=== PATIENT | female | born 1965 | race Caucasian/White ===

== ENCOUNTER → 2017-10-28 14:39 | Outpatient (CLI) | payer OTHER, SELFPAY ==
[2017-10-28 18:05] LABS: Anion Gap 10 (5-15); BUN 16 mg/dL (7-18); BUN/Creat Ratio 17.6 RATIO (10-20); Chloride 102 mmol/L (98-107); Creatinine, Serum 0.91 mg/dL (0.55-1.02); EST Glomerular Filtration Rate 69 mL/min (>60); Est Glom Filt Rate - Afr Amer 83 mL/min (>60); Glucose 87 mg/dL (74-106); Sodium Level 138 mmol/L (136-145)
== END ==
PROVIDERS: Family Provider Family Medicine; PCP Family Medicine; Visit Provider Family Medicine
DX: I10 Essential (primary) hypertension (principal)
CPT/HCPCS: 36415; 80048

== ENCOUNTER 2018-05-09 09:30 | Outpatient (RCR) | payer OTHER, SELFPAY ==
--- NOTE | 2018-04-28 14:58 | HP.PTEVAL_ITS ---
Patient's Visit Information RAZA GUAMAN is a 53 year old F referred to Physical Therapy by Michael Boyle with a diagnosis of Bone Spur and Plantar Fascitis. Date of Evaluation: 04/28/18 Physical Therapist: Shaila Valente - Visit Plan Frequency: 2x /Week Duration: 3 Weeks Plan: Dry Needling, Gastroc, Cupping - Subjective Subjective: Patient reports having left plantar fascitits and a bone spur. Has had pain for about 6 months- insisous onset. Has had x-rays on the left. Has plantar fascitis in the [facility] and has been treated for like 15 years. Just the left is an issue. Has had 2 cortisone injections- does stretching- and has night splints that she wears at her desk. Wear orthotics in her tennis shoes- not currently wearing them- her go to shoes are nike flip flops that have a cushion on the field. Does not change her orthotics out of her shoes- does not feel like enough cushion in the heel- approx 2-3 years old. Has not talked about making new ones. Feels like the left foot is getting worse over the past 10 days it has gotten remarkably worse. No changes in anything. Worst: 02/24 Agg: getting up out of bed in the AM, being on her feet all the time. Eases: ice and staying off of it. Best: 07/27. Pain is located in the center of the heel- No radiating pain- No N/T in the foot. Describes the pain as a little bit of everything- throbbing, sharp, shooting. 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 PMHx: HTN, Asthma Meds: lysinopril, sprinolactone, daily inhaler - Objective Posture: good throughout. Gait: antalgic- decreased stance on the left LE with poor heel/toe pattern. HR: able- TR: declined to attempt due to pain. SLS: Declined to attempt secondary to pain- pt barely able to stand putting the foot flat on a surface. ROM: WFL. Strength: 5/5 throughout. Flex: Gastroc: no restriction Soleus: no restriction. Palpation: tender along heel medial and lateral and center - Goals Goal 1:: Patient will be I with HEP Goal Time Frame: 4-6 Weeks Goal 2:: Patient will report 0/10 pain Goal Time Frame: 4-6 Weeks Goal 3:: Patient will SLS for 30 seconds on left LE Goal Time Frame: 4-6 Weeks - Rehabilitation Potential Physical Therapy Diagnosis: Patient presents with hypomobility- she has increased pain leading to diminished WB on the left LE - Anticipated Interventions Patient/Client Instruction: Educate patient on: Benefits of Fitness Program Manual Therapy Techniques to Include: Mobilization, Passive ROM, Functional dry needling, Soft tissue mobilization For the Purpose of:: To decrease swelling/inflammation, To improve nutrient delivery to tissue Thank you for the opportunity to evaluate your patient. For Medicare and Medicare HMO plans, please review the plan of care and approve it. It will need to be FAXED BACK to us at [phone] for Medicare purposes. Please let me know if there are questions or concerns regarding this plan of care. Physician Signature: Date:
--- NOTE | 2018-10-16 13:26 | HP.PT.NRP ---
HP - Discharge Summary (1) - Patient Information RAZA GUAMAN was seen in my office for initial evaluation on 04/28/18. The following Plan of Care was established for this patient: Initial Frequency: 2x /Week Initial Duration: 3 Weeks - Anticipated Interventions Patient/Client Instruction: Educate patient on: Benefits of Fitness Program Manual Therapy Techniques to Include: Mobilization, Passive ROM, Functional dry needling, Soft tissue mobilization For the Purpose of:: To decrease swelling/inflammation, To improve nutrient delivery to tissue This patient was last seen in our office . Pertinent comments regarding their Physical therapy will appear below: Patient has not attended physical therapy is over 30 days- appropriate to be d/c from PT and return to MD as needed for further evaluation. At this point I will be discontinuing this patient from physical therapy. I would be happy to see this patient again in the future if found appropriate by the physician. Thank you! CHANA BuchananT
== END 2018-05-09 19:00 | disposition home or self-care (01) ==
LOC: PT 09:30
PROVIDERS: Family Provider Family Medicine; PCP Family Medicine; Referring Provider Podiatrist; Visit Provider Podiatrist
DX: M72.2 Plantar fascial fibromatosis (principal); M77.32 Calcaneal spur, left foot
CPT/HCPCS: 97110; 97140; 97161

== ENCOUNTER → 2018-05-28 11:02 | Outpatient (CLI) | payer OTHER, SELFPAY ==
--- NOTE | 2018-05-28 11:21 | MRI_ITS ---
STUDY: MRI LEFT REARFOOT WITHOUT CONTRAST REASON FOR EXAM: Pain in center of heel for 8 months. TECHNIQUE: Standardized fat and water weighted pulse sequences were obtained in all 3 orthogonal planes. COMPARISON: None. FINDINGS: There is mild edema in the subcutis adipose space anterior to the distal tibial diaphysis. Normal posterior tibialis tendon. Normal flexor digitorum longus tendon. There is a small volume of fluid in the flexor hallucis longus tendon sheath distal to the sustentaculum kerry (T2 coronal images 21, 22). Normal peroneus longus and brevis tendons. Normal tibialis anterior tendon. Normal extensor hallucis longus tendon. Normal extensor digitorum longus tendons. Normal Achilles tendon and teno-osseous insertion. There is mild interstitial edema and periaponeurotic edema of the central and lateral cords of the plantar fascia (inversion recovery sagittal images 10-14). There is a plantar calcaneal enthesophyte with mild bone edema within the enthesophyte (inversion recovery sagittal images 10, 11). There is mild atrophy with mild partial fat replacement of the abductor digiti minimi muscle (T1 sagittal images 16-18). Normal distal tibiofibular syndesmotic ligamentous complex. Normal lateral ligamentous complex. Normal subtalar ligaments and sinus tarsi. Normal deltoid ligamentous complexes. Normal plantar calcaneonavicular (spring) ligament. Normal tibiotalar articulation. Normal talar dome. Normal subtalar articulations. Normal talonavicular articulation. Normal calcaneocuboid articulation. Normal navicular-cuneiform articulations. MRI/Lower Ext/No Jt/w/o IMPRESSION: Plantar fasciitis. Plantar calcaneal enthesophyte with mild bone edema. Mild atrophy of the abductor digiti minimi muscle. Small volume of fluid in the flexor hallucis longus tendon sheath. Electronically Signed: Severiano Baugh MD at 7:51 EST Tel , Service support ,
--- OUTSIDE RECORDS SUMMARY | 2018-07-14 13:55 | XMS RPT_ITS ---
:1965 Author Organization [facility] Care Team Providers Name Role Phone ESTRADA CASTILLO III A Referring Unavailable HERLINDA YANEZ (SKIN CARE THERAPIST) Attending Unavailable TIEN MENDIETA (PA) Referring Unavailable VELMA PEDRO Admitting Unavailable VELMA PEDRO Attending Unavailable CEBUL III, ESTRADA A Referring Unavailable CEBUL III, ESTRADA A Attending Unavailable CEBUL III, ESTRADA A Referring Unavailable CEBUL III, ESTRADA A Attending Unavailable CEBUL III, ESRTADA A Referring Unavailable Michael Boyle Attending Unavailable Michael Boyle Referring Unavailable Hieu Farris Primary Care Unavailable Hieu Farris Attending Unavailable Hieu Farris Primary Care Unavailable Palomo Sanford D.O. Attending Unavailable Michellebul Estrada RIBEIRO Referring Unavailable Cebul III, Estrada Primary Care Unavailable Hieu Farris Attending Unavailable Betsyl QUINTIN, Estrada Primary Care Unavailable Palomo Sanford D.O. 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 / Hospital M72.2(ICD-10) Repository 05/09/2018 Unknown M77.32 - Calcaneal Wunning, Active [place] spur, left foot / [facility] M77.32(ICD-10) Hospital Repository 07/22/2017 Active Encounter for WILLIS, Active [facility] screening for VELMA T [facility] malignant neoplasm Repository of colon / Z12.11(ICD-10) 08/07/2017 Active Unspecified injury NA Active [facility] of right lower [facility] leg, initial Repository encounter / S89.91XA(ICD-10) PROCEDURES PROCEDURES No Procedure Records FoundRESULTS RESULTS OPERATIVE REPORT Observed: 07/04/2018 Status: F Source: [place] 8:16 AM [facility] Medical Records Department [address] [place] [address] Operative Report 07/04/18 0813 MR#: [id number] Acct: [id number] Name: JACKIE GUAMAN Rep #: [id number] : 1965 53 From: Michael Boyle DPSandro PCP: Hieu Farris MD Status: REG [facility] [place] Location: [place] [address] Report of Operation Date of Procedure: 07/04/18 Pre-Operative Diagnosis: Plantar fascitis and infracalcaneal spur, left foot Post-Operative Diagnosis: Same Surgery/Procedure Performed:: Plantar fasciotomy with resection of infracalcaneal spur, left dairy scientist: yes - Dr. 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 She has elected to undergo surgical intervention - plantar fasciotomy with resection of infracalcaneal heel spur. This was discussed with her in detail, reviewed the possible benefits vs risks, goals, expectations, alternative options, and typical healing/post op recovery. The consent forms were reviewed with her, and she freely signed them. All of her questions were answered. No guarantees were given nor implied. Operative Procedure: The patient was brought back into the operating room and was placed on the operating room table in the supine position. She was carefully secured to the operating room table with a safety belt around the waist. A time out was performed and the patient was properly identified and the surgical plan was confirmed. The patient received 2g of IV Cefazolin for antibiotic prophylaxis. A well padded pneumatic tourniquet was applied around the patient's left ankle. The patient received MAC anesthesia per the anesthesia team, and a total of 20mL of 0.5% Bupivacaine plain was given as a regional nerve block around the heel surgical site. The left foot was scrubbed, prepped, draped in the usual aseptic fashion. The left foot was elevated for 3 minutes and the right ankle pneumatic tourniquet was inflated to 250mmHg. The infracalcaneal spur was visualized on intra operative fluoroscopy, image was saved. A skin incision was made to the medial hindfoot at the level of the plantar fascia and infracalcaneal spur, careful dissection was completed down through the subcutaneous tissue layer. A plane was created superiorly and inferiorly around the plantar fascia and the medial 50% of the plantar fascia was released via a plantar fasciotomy. It was noted there was significant thickening of the plantar fascia with fibrosis consistent with chronic plantar fasciitis. The infracalcaneal spur was felt, and was carefully resected using a powered rasp. Resection of the infracalcaneal spur was confirmed using intraoperative fluoroscopy. Images pre and post infracalcaneal spur resection were saved. The site was flushed out with copious amounts of normal saline solution. The skin was reapproximated using 3-0 Nylon. The pneumatic tourniquet was deflated (total tourniquet time was 21 minutes), and there was immediate return of warmth and perfusion to the foot and to all toes on the foot with normal temperature gradient and CFT < 2 seconds to all toes. Hemostasis was achieved. A dressing was applied which consisted of Betadine soaked adaptic, 4x4 gauze, Kerlix and ashok bandage, being sure to apply it not to tight. The patient tolerated the above operative procedure well at the anesthesia well with no complication. The patient was transported to the recovery room with vital signs stable and in good condition. Post operative orders were placed. Post operative instructions were reviewed and dispensed verbal and written. No weightbearing left foot, keep left foot elevated for at least 50 minutes of every hour, keep dressing clean, dry and intact. Prescription for [place] 1-2 tabs PO q 6 hours prn pain was prescribed. She is to follow up with me within 1 week or sooner if needed. Grafts/Implants Used: None - Complications None 07/04/1816 <Electronically signed by Michael Boyle DPM> Date Michael Boyle DPM CC: Hieu Farris MD; Michael Boyle DPM Signed DISCHARGE INSTRUCTION Observed: 07/04/2018 Status: F Source: [place] 8:11 AM [facility] [place] [place] [facility] Medical Records Department [address] [place] [address] Instructions for Home/Discharge Instructions 07/04/18 0810 MR#: [id number] Acct: [id number] Name: JACKIE GUAMAN Rep #: [id number] : 1965 53 From: Michael Boyle DPM PCP: Hieu Farris MD Status: REG [facility] Discharge Diet: Light diet - advance as tolerated Discharge Activity: May Not Drive Weight Bearing Status: No weight bearing - No weightbearing left foot Keep extremity elevated above heart level: Left Leg - Keep left foot elevated using pillows for at least 50 minutes of every hour Call your doctor if your incision/area has: Continuous Slow Oozing, Sudden Increased Bleeding, Increased Redness, Foul Smelling Discharge Call your doctor if you observe: Fever of 101 or Higher, Coldness, Increased Pain, Shortness of breath, Chest pain, Increased palpitations (irregular heartbeat), Calf discomfort, Uncontrolled pain Cleanse incision/area with: Do not get Incision Wet, Keep Dressing Clean AND Dry Allergies/Adverse Reactions: Allergies naproxen [From Aleve] Adverse Reaction (Intermediate, Verified 07/04/18 06:20) / sulfadiazine Adverse Reaction (Mild, Verified 07/04/18 06:20) / Medications to take at Discharge spironolactone 50 mg tablet 50 mg PO QAM 05/23/17 mometasone 100 mcg/actuation HFA aerosol inhaler 2 puff INHALATION Q12H #3 device 06/19/17 lisinopril 10 mg tablet 20 mg PO DAILY 03/18/18 Amberen 2 cap PO DAILY 06/27/18 Multivitamin [Daily Multiple Vitamin] 1 each PO DAILY 06/27/18 Hydrocodone/Acetaminophen [[place] 5-325 Tablet] 1 ea PO Q6H PRN PRN #30 tab 07/04/18 The following prescriptions were given: Hydrocodone/Acetaminophen [[place] 5-325 Tablet] 1 ea PO Q6H PRN PRN #30 tab PRN Reason: Pain Primary Care Physician: Alex Farris MD [Primary Care Provider] - Test Results: Test results from this visit will be discussed in further detail at your follow-up appointment, if applicable. Please Follow Up With: Michael Boyle DPM When: 1 week, sooner if needed 07/04/18 0811 <Electronically signed by Michael Boyle DPM> Date Michael Boyle DPM CC: Hieu Farris MD Signed FOOT 2 VIEWS Observed: 07/04/2018 Status: F Source: [place] 5:13 AM [facility] [facility] Imaging Services [address] [place] [address] Foot 2 Views MR#: [id number] Acct: [id number] Name: JACKIE GUAMAN Margarito Rep #: [id number] : 1965 F 53 From: Julianna Walton MD PCP: Hieu Farris MD Status: [facility] Study: Foot 2 Views Date of Exam: 07/04/18 Exam# [id number] Ordering Dr: Michael Boyle DPM STUDY: X-RAY - LEFT FOOT CLINICAL: Female, 53 years old. Left resection intracranial heel TECHNIQUE: 3 view(s) of the foot. COMPARISON: None. FINDINGS: 3 images were submitted, as radiology support for c-arm imaging in the operating room. This is not a diagnostic examination. Images for documentation purposes only. Fluoroscopy time if reported: RAD/Foot 2 Views IMPRESSION: Intraoperative fluoroscopic image guidance. Electronically Signed: Julianna Walton MD at 3:36 EST , Service support , CC: Hieu Farris MD; Michael Boyle DPM Hand Candy Cutter: Signed BASIC METABOLIC Collected: 06/23/2018 Status: F Source: [place] PROFILE (BMP) 11:53 AM [facility] [place] TYPE CODE TESTS RESULT OUT OF RANGE REFERENCE UNITS LAB L501.0100 74-106 mg/dL Normal GLU 95 Result Comment: Please note revised GLUCOSE reference range effective 2017. LAB L501.1000 7-18 mg/dL Normal BUN 15 LAB L501.1100 0.55-1.02 mg/dL Normal CREAT,SERUM 0.89 Result Comment: The validity of the calculated GFR AND GFRAA in patients over 70 years has not been determined. Clinical correlation is essential. LAB L501.1110 >60 mL/min Normal EST GFR 70 Result Comment: Non- GFR Calc LAB L501.1115 >60 mL/min Normal EST GFR - AA 85 Result Comment: GFR Calc LAB L501.1300 10-20 RATIO Normal BUN/CRE 16.8 LAB L501.2200 8.5-10.1 mg/dL CA Normal 9.7 LAB L501.5300 136-145 mmol/L NA Normal 138 LAB L501.5600 3.5-5.1 mmol/L K Normal 4.3 LAB L501.5900 98-107 mmol/L CL Normal 103 LAB L501.6100 21.0-32.0 mmol/L Normal CO2 26.0 LAB L501.6200 5-15 Normal GAP 9 Performed By: #### L500.2500, L100.0500 #### [facility] [address] [place], [address] CBC-COMPLETE BLOOD CNT Collected: 06/23/2018 Status: F Source: [place] NO DIFF 11:53 AM [facility] [place] [place] TYPE CODE TESTS RESULT OUT OF RANGE REFERENCE UNITS LAB L100.1000 4.4-11.0 K/mm3 Normal WBC 6.8 LAB L100.1200 4.2-5.4 M/mm3 Normal RBC 4.36 LAB L100.1300 12.0-15.0 g/dl Normal HGB 14.6 LAB L100.1400 37-47 % Normal HCT 43.2 LAB L100.1500 81-99 fL High MCV 99.1 LAB L100.1600 27.0-32.0 pg High MCH 33.5 LAB L100.1700 32-36 g/gl Normal MCHC 33.8 LAB L100.1810 11.6-14.6 % Normal RDW CV 12.3 LAB L100.1820 35.1-43.9 fl High RDW SD 44.0 LAB L100.1900 150-450 K/mm3 Normal PLT 328 LAB L100.2000 6.2-12.0 fl Normal MPV 10.0 Performed By: #### L500.2500, L100.0500 #### [facility] [address] [place], [address] LOWER EXT/NO JT/W/O Observed: 05/28/2018 Status: F Source: [place] 11:22 AM [facility] [place] [facility] Imaging Services [address] [place] [address] Lower Ext/No Jt/w/o MR#: [id number] Acct: [id number] Name: JACKIE GUAMAN Rep #: [id number] : 1965 F 53 From: Severiano Baugh MD PCP: Hieu Farris MD Status: REG CLI Study: Lower Ext/No Jt/w/o Date of Exam: 05/28/18 Exam# [id number] Ordering Dr: Michael Boyle DPSandro STUDY: MRI LEFT REARFOOT WITHOUT CONTRAST REASON FOR EXAM: Pain in center of heel for 8 months. TECHNIQUE: Standardized fat and water weighted pulse sequences were obtained in all 3 orthogonal planes. COMPARISON: None. FINDINGS: There is mild edema in the subcutis adipose space anterior to the distal tibial diaphysis. Normal posterior tibialis tendon. Normal flexor digitorum longus tendon. There is a small volume of fluid in the flexor hallucis longus tendon sheath distal to the sustentaculum kerry (T2 coronal images 21, 22). Normal peroneus longus and brevis tendons. Normal tibialis anterior tendon. Normal extensor hallucis longus tendon. Normal extensor digitorum longus tendons. Normal Achilles tendon and teno-osseous insertion. There is mild interstitial edema and periaponeurotic edema of the central and lateral cords of the plantar fascia (inversion recovery sagittal images 10-14). There is a plantar calcaneal enthesophyte with mild bone edema within the enthesophyte (inversion recovery sagittal images 10, 11). There is mild atrophy with mild partial fat replacement of the abductor digiti minimi muscle (T1 sagittal images 16-18). Normal distal tibiofibular syndesmotic ligamentous complex. Normal lateral ligamentous complex. Normal subtalar ligaments and sinus tarsi. Normal deltoid ligamentous complexes. Normal plantar calcaneonavicular (spring) ligament. Normal tibiotalar articulation. Normal talar dome. Normal subtalar articulations. Normal talonavicular articulation. Normal calcaneocuboid articulation. Normal navicular-cuneiform articulations. MRI/Lower Ext/No Jt/w/o IMPRESSION: Plantar fasciitis. Plantar calcaneal enthesophyte with mild bone edema. Mild atrophy of the abductor digiti minimi muscle. Small volume of fluid in the flexor hallucis longus tendon sheath. Electronically Signed: Severiano Baugh MD at 7:51 EST Tel , Service support , CC: Hieu Farris MD; Michael Boyle DPM Hand Candy Cutter: Signed INITAL EVALUATION (1) Observed: 04/28/2018 Status: F Source: [place] - PT 2:58 PM [facility] Physical Therapy [facility] [address] [place] [address] Fax REHABILITATION SERVICES INITIAL EVALUATION MR#: [id number] Acct: [id number] Name: JACKIE GUAMAN Rep #: [id number] : 1965 53 From: Shaila Valente DPT Referring Dr.: Michael Boyle DPM Status: REG RCR Insurance: [employer] SELF PAY INSURANCE Patient's Visit Information JACKIE GUAMAN is a 53 year old F referred to Physical Therapy by Michael Boyle with a diagnosis of Bone Spur and Plantar Fascitis. Date of Evaluation: 04/28/18 Physical Therapist: Shaila Valente - Visit Plan Frequency: 2x /Week Duration: 3 Weeks Plan: Dry Needling, Gastroc, Cupping - Subjective Subjective: Patient reports having left plantar fascitits and a bone spur. Has had pain for about 6 months- insisous onset. Has had x-rays on the left. [facility] and has been [facility] for like 15 years. Just the left is an issue. Has had 2 cortisone injections- does stretching- and has night splints that she wears at her desk. Wear orthotics in her tennis shoes- not currently wearing them- her go to shoes are nike flip flops that have a cushion on the field. Does not change her orthotics out of her shoes- does not feel like enough cushion in the heel- approx 2-3 years old. Has not talked about making new ones. Feels like the left foot is getting worse over the past 10 days it has gotten remarkably worse. No changes in anything. Worst: 02/24 Agg: getting up out of bed in the AM, being on her feet all the time. Eases: ice and staying off of it. Best: 07/27. Pain is located in the center of the heel- No radiating pain- No N/T in the foot. Describes the pain as a little bit of everything- throbbing, sharp, shooting. 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 PMHx: HTN, Asthma Meds: lysinopril, sprinolactone, daily inhaler - Objective Posture: good throughout. Gait: antalgic- decreased stance on the left LE with poor heel/toe pattern. HR: able- TR: declined to attempt due to pain. SLS: Declined to attempt secondary to pain- pt barely able to stand putting the foot flat on a surface. ROM: WFL. Strength: 5/5 throughout. Flex: Gastroc: no restriction Soleus: no restriction. Palpation: tender along heel medial and lateral and center - Goals Goal 1:: Patient will be I with HEP Goal Time Frame: 4-6 Weeks Goal 2:: Patient will report 0/10 pain Goal Time Frame: 4-6 Weeks Goal 3:: Patient will SLS for 30 seconds on left LE Goal Time Frame: 4-6 Weeks - Rehabilitation Potential Physical Therapy Diagnosis: Patient presents with hypomobility- she has increased pain leading to diminished WB on the left LE - Anticipated Interventions Patient/Client Instruction: Educate patient on: Benefits of Fitness Program Manual Therapy Techniques to Include: Mobilization, Passive ROM, Functional dry needling, Soft tissue mobilization For the Purpose of:: To decrease swelling/inflammation, To improve nutrient delivery to tissue Thank you for the opportunity to evaluate your patient. For Medicare and Medicare HMO plans, please review the plan of care and approve it. It will need to be FAXED BACK to us at [phone] for Medicare purposes. Please let me know if there are questions or concerns regarding this plan of care. Physician Signature: Date: <Electronically signed by Shaila Valente DPT> 04/28/18 0149 CC: Hieu Farris MD; Michael Boyle DPM ELR Signed For Medicare only, by signing this I certify the plan of care. Physicians Signature Date PULMONARY VISIT REPORT Observed: 03/18/2018 Status: F Source: [place] 10:21 AM [facility] [place] [facility] [place] [facility] [address] [place] [address] OFFICE VISIT Date of Service: 03/18/18 MR#: [id number] Acct: [id number] Name: JACKIE GUAMAN Rep #: [id number] : 1965 Provider: Palomo Sanford D.O. Age/Sex: 53/F [facility] Status: Signed Assessment AND Plan 1. ERNESTINA (obstructive sleep apnea) G47.33 Plan The patient has been compliant with use of her nocturnal BiPAP at a pressure support of 11/7 centimeters of water. She is benefiting clinically from its use. This will be continued without change. 2. Asthma J45.909 Plan The patient has mild, intermittent asthma and is symptomatically well controlled with the use of Asmanex and as needed albuterol. This regimen will be continued without change. The patient has been advised to call this office with any worsening in her breathing quality and/or increased reliance on her short acting beta agonist. Plan Detail Other Medications New: Follow Up 1 Year (DMB) HPI HPI Comments Details: The patient is a 53-year-old female who presents to the clinic today for a routine scheduled follow-up office visit. If you recall, the patient initially presented to me for evaluation of a chronic cough and presumptive asthma. She underwent pulmonary function testing in April 2017 the results of which were within normal limits. There was no significant bronchodilator response noted. The patient has been maintained on Asmanex therapy with good control of symptoms noted. Methacholine challenge was previously discussed with the patient. However, she declined to undergo testing. The patient did undergo a diagnostic polysomnogram in June 2017 which revealed mild to moderate obstructive sleep apnea. She then underwent a titration study, for which was recommended that she be placed on BiPAP therapy with a pressure setting of 11/7 cm of water with humidification. The patient's nocturnal compliance report was personally reviewed at today's office visit. Over the last 30 days, she has demonstrated an overall compliance rate of 100%. She is currently utilizing her BiPAP on average 7.5 hours per night. She has a prescribed pressure support of 11/7 centimeters of water. She has a residual AHI noted to be 0.8. No significant air leaks were noted. The patient reports improvement in her sleep quality since being started on BiPAP. She does endorse the presence of restorative sleep upon awakening and denies significant daytime hypersomnolence. She is not napping. She reports no significant air leaks. Her asthma is mild and intermittent and has been well controlled with use of Asmanex and as needed albuterol. In fact, she reports exceedingly infrequent use of her rescue inhaler. She has not been evaluated in the emergency department or urgent care clinic for breathing related issues. She denies the presence of chest tightness or wheezing. She reports no significant dyspnea. Her weight has been stable. 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 Accompanied by: Self Is patient in pain?: No Allergies naproxen [From Aleve] Adverse Reaction (Intermediate, Verified 03/18/18 06:35) / sulfadiazine Adverse Reaction (Mild, Verified 03/18/18 06:35) / Medications paroxetine 10 mg tablet 10 mg PO QAM 05/23/17 [History Confirmed 03/18/18] spironolactone 50 mg tablet 50 mg PO QAM 05/23/17 [History Confirmed 03/18/18] mometasone 100 mcg/actuation HFA aerosol inhaler 2 puff INHALATION Q12H #3 device 06/19/17 [Rx Confirmed 03/18/18] lisinopril 10 mg tablet 10 mg PO DAILY 03/18/18 [History Confirmed 03/18/18] PENDING SALE TO [facility] Medical History H/O: hysterectomy (Resolved) Sleep apnea (Chronic) Sneezing (Acute) Sore throat (Acute) Rhinorrhea (Chronic) Post-nasal drainage (Chronic) Nasal congestion (Acute) Hoarseness (Acute) Headache (Chronic) Asthma (Chronic) Cough (Chronic) Seasonal allergies (Chronic) Surgical History History of tonsillectomy (Resolved) Social History Smoking Status: Never smoker second hand exposure: No alcohol intake: current alcohol intake frequency: a few times a week Alcohol type: beer substance use type: does not use Review of Systems Const CONSTITUTIONAL: Negative anorexia, body ache, chills, daytime sleepiness, fever(s), night sweats, oral thrush, stops breathing during sleep, weight loss, sleeping in chair, fatigue, weight loss, weight gain, frequent colds, seasonal allergies, other, headache(s) or orthopnea EETM Ear Nose Throat Mouth: Positive hearing normal; negative hard of hearing, hoarseness, dry mouth in morning, change in vision, itchy eyes, eye pain, swallowing Difficulty, ear pain, nose bleed, headache(s), mouth pain, nasal congestion, nasal discharge, post nasal drip, sinus pain, sinus pressure, sore throat or other Cardio Cardiovascular: Negative chest pain, chest pain at rest, chest pain with activity, irregular heart rhythm, edema, shortness of breath when lying down, palpitations, murmur or other Resp Respiratory: Positive as per HPI, cough cough: Positive non- productive and inhalers; negative shortness of breath, pain with cough, wheezing, chest congestion, chest tightness, pain on inspiration, increase use of rescue inhalers, snoring, apnea or other Gastro Gastrointestional: Negative bloody stools, change in appetite, difficulty swallowing, reflux, hematemesis, melena stool, loose stool, constipation or other Genitourinary: Negative blood in urine, nocturia, pain with urination or other Musc Musculoskeletal: Negative body pain, back pain, neck pain or other Skin/Breast Skin/Breast: Negative dry skin, itching, rash, unusual bruising, breast lump or other Neuro Neurological: Negative restless legs, confusion, weakness or other Psych Psychocological: Negative abnormal sleep pattern, anxiety, thoughts of hurting self/others, hopelessness or other Lymph Lymphatic: Negative easy bleeding, easy bruising, swollen lymph nodes or other Exam Const Constitutional: Positive conversant, cooperative, in no acute respiratory distress, well developed, well nourished and good hygiene Head Head: Positive normocephalic and atraumatic; negative cyanosis of lips/distal nose Eyes Eye: Positive clear conjunctiva; negative nystagmus or scleral abnormality Ears Ear: Positive hearing normal; negative hard of hearing Nose Nose: Positive external nose normal; negative epistaxis Mouth Mouth: Positive oral mucosae normal and no lesions; negative post nasal drip or oral thrush present Mallampati Score: II: Mallampati Score Neck Neck: Positive normal visual inspection and trachea midline; negative lymphadenopathy Chest Wall Chest: Positive symmetric chest movement Normal AP diameter. Resp lung sounds: Positive clear to auscultation, good air exchange and normal expiratory time; negative wheezes, rhonchi or rales Cardio Cardiac: Positive regular rate, regular rhythm, S1 normal and S2 normal; negative murmur GI GI: Positive normal bowel sounds Soft without distention Genitourinary: Positive deferred Musc Musculoskeletal: Positive steady gait Skin Pulmonary Skin Exam: Positive intact; negative rash or lesion Pulses Pulse: Yes Pedal pulses present: Extremities Extremities: No clubbing, No cyanosis, No edema Neuro Neurologic: Yes conversant, Yes no focal neuro deficits, Yes cooperative Lymph Lymphatic: No lymphadenopathy Psych Appearance: Positive grossly normal Mental Status: Positive mental status grossly normal Mood: Positive congruent mood Affect: Positive normal affect Coding Level of Care Code Off vis,est,level 3 Diagnoses ERNESTINA (obstructive sleep apnea) G47.33 Asthma J45.909 03/18/18 1021 <Electronically signed by Palomo Sanford DO> Date Palomo Sanford DO Cosigner Signature: Date (if applicable) CC: Hieu Farris MD BASIC METABOLIC Collected: 10/28/2017 Status: F Source: [place] PROFILE (BMP) 2:41 PM [facility] Order Comment: Order Date: 10/16/17 Order Info: 0667-1 - BMP TYPE CODE TESTS RESULT OUT OF RANGE REFERENCE UNITS LAB L501.0100 74-106 mg/dL Normal GLU 87 Result Comment: Please note revised GLUCOSE reference range effective 2017. LAB L501.1000 7-18 mg/dL Normal BUN 16 LAB L501.1100 0.55-1.02 mg/dL Normal CREAT,SERUM 0.91 Result Comment: The validity of the calculated GFR AND GFRAA in patients over 70 years has not been determined. Clinical correlation is essential. LAB L501.1110 >60 mL/min Normal EST GFR 69 Result Comment: Non- GFR Calc LAB L501.1115 >60 mL/min Normal EST GFR - AA 83 Result Comment: GFR Calc LAB L501.1300 10-20 RATIO Normal BUN/CRE 17.6 LAB L501.2200 8.5-10.1 mg/dL CA Normal 10.0 LAB L501.5300 136-145 mmol/L NA Normal 138 LAB L501.5600 3.5-5.1 mmol/L K Normal 4.0 LAB L501.5900 98-107 mmol/L CL Normal 102 LAB L501.6100 21.0-32.0 mmol/L Normal CO2 26.0 LAB L501.6200 5-15 Normal GAP 10 Performed By: #### L500.2500 #### [facility] [address] [place] [address]. [place], [place], [address] PROGRESS Observed: 09/16/2017 Status: COMPLETED Source: [place] 1:19 PM [facility] REPOSITORY HNO ID: [id number] Author: Raya Bloom LPN Service: (none) Author Type: (none) Type: Progress Notes Filed: 09/16/2017 1:24 PM Note Text: Manual Readin/84 Pulse: 74 Reason for blood pressure check - Last BP elevated and Medication adjustment Patient is: Taking medication as prescribed Yes Took medication today Yes If no, date medication last taken N/A Experiencing side effects No BP was elevated at last appt 08/26/17. Amlodipine was increased to 10mg daily. Tolerating medication change well. Denies any chest pain, shortness of breath, dizziness, or headaches. Daily caffeine use. Past personal history of tobacco use; no current exposure. Alert and oriented. Pt has been identified by name and birthdate: Yes Allergies reviewed: Yes Latex allergy: no. Medication - prescribed and OTC reviewed and updated: Yes Do you need any prescription refills prior to your next visit: No Health Maintenance: Reviewed and not up to date and provider notified Patient advised to continue with current medications and would be contacted with any further instructions after review by PCP. Raya Bloom LPN CNNURSE Observed: 09/16/2017 Status: COMPLETED Source: [place] 1:00 PM [facility] REPOSITORY Nurse Visit (FAMPWS) JACKIE GUAMAN ([id number]) 1965 F Date Time Provider Department 09/16/17 1:00 PM [place] [facility] your visit today, we recorded the following information about you: Pulse Blood pressure 74/minute 126/84 Raya Bloom LPN 09/16/2017 1:24 PM Signed Manual Readin/84 Pulse: 74 Reason for blood pressure check - Last BP elevated and Medication adjustment Patient is: Taking medication as prescribed Yes Took medication today Yes If no, date medication last taken N/A Experiencing side effects No BP was elevated at last appt 08/26/17. Amlodipine was increased to 10mg daily. Tolerating medication change well. Denies any chest pain, shortness of breath, dizziness, or headaches. Daily caffeine use. Past personal history of tobacco use; no current exposure. Alert and oriented. Pt has been identified by name and birthdate: Yes Allergies reviewed: Yes Latex allergy: no. Medication - prescribed and OTC reviewed and updated: Yes Do you need any prescription refills prior to your next visit: No Health Maintenance: Reviewed and not up to date and provider notified Patient advised to continue with current medications and would be contacted with any further instructions after review by PCP. Raya Bloom LPN Referring Provider: ESTRADA CASTILLO III [[id number]] Allergies As of Date: 09/16/2017 Noted Allergy Reaction ALEVE (NAPROXEN SODIUM) 08/27/2008 4 - Hives Comments: passed out SULFA (SULFONAMIDE ANTIBIOTICS) 05/28/2005 Date Reviewed: 08/26/2017 Reviewed by: Audrey ([facility]) AUDRA Arceo - Fully Assessed Reason for Visit: Blood Pressure Check [195] Primary Visit Diagnosis:Benign hypertension [I10] Prescriptions as of 09/16/2017 Sig: AMLODIPINE 10 MG TABLET Take 1 tablet by mouth once d* SPIRONOLACTONE 50 MG TABLET Take 1 tablet by mouth once d* ASMANEX HFA INHALATION Inhale 1 Inhalation as instru* GABAPENTIN 300 MG CAPSULE Take 1 capsule by mouth daily* PAROXETINE 10 MG TABLET Take 1 tablet by mouth once d* ADAPALENE 0.1 % TOPICAL GEL Apply to entire affected area* Problem List As Of Date 09/16/2017 Noted Resolved Leiomyoma of uterus, unspecified [D25.9] INVALID FOR*08/26/2017 Sprain of neck [S13.9XXA] INVALID FOR*08/26/2017 Other Acne [L70.8] INVALID FOR*02/17/2010 Other Seborrheic Keratosis [L82.1] INVALID FOR*02/17/2010 PLANTAR FIBROMATOSIS [M72.2] INVALID FOR* Pain in limb [M79.609] INVALID FOR*08/26/2017 Acne: Inflammatory Grade III to IV (papulonodu*INVALID FOR* Viral Wart, Unspecified [B07.9] INVALID FOR*02/17/2010 Uterine prolapse without mention of vaginal wal*INVALID FOR*08/26/2017 Hypertrophy of uterus [N85.2] INVALID FOR*08/26/2017 Postinflammatory skin changes [R23.4] INVALID FOR*08/26/2017 Obesity, Class III, BMI 40-49.9 (morbid obesity*INVALID FOR* ERNESTINA (obstructive sleep apnea) [G47.33] INVALID FOR* Benign hypertension [I10] INVALID FOR* Hyperlipidemia LDL goal <130 [E78.5] INVALID FOR* Encounter for screening for malignant neoplasm *INVALID FOR* More... Mild intermittent asthma, uncomplicated [J45.20]INVALID FOR* Encounter Status:Closed by RAYA BLOOM LPN on 09/16/17 PROGRESS Observed: 08/26/2017 Status: COMPLETED Source: [place] 1:59 PM [facility] REPOSITORY O ID: [id number] Author: Estrada A Cebul III Service: (none) Author Type: Physician Type: Progress Notes Filed: 08/26/2017 2:45 PM Note Text: SUBJECTIVE: This is a 52 year old female that is here today for 1. 6 wk follow up of BP. 2. has not made dietary changes or found time to exercise. 3. asthma, 2-3 /yr. : doing well on asmanex 1 puff daily. No recent need for albuterol inhaler. PAST MEDICAL HISTORY Diagnosis Date - Asthma - Benign hypertension 07/02/2017 - Chronic pain of both knees 07/02/2017 - Excessive or frequent menstruation s/p ablation - Obesity, Class III, BMI 40-49.9 (morbid obesity) (HCC) 07/02/2017 - ERNESTINA (obstructive sleep apnea) 07/02/2017 - Other acne on face creme and med Current Outpatient Prescriptions on File Prior to Visit: spironolactone (ALDACTONE) 50 mg tablet Take 1 tablet by mouth once daily. amLODIPine (NORVASC) 5 mg tablet Take 1 tablet by mouth once daily. MOMETASONE FUROATE (ASMANEX HFA INHALATION) Inhale 1 Inhalation as instructed once daily. gabapentin (NEURONTIN) 300 mg capsule Take 1 capsule by mouth daily at bedtime. PARoxetine (PAXIL) 10 mg tablet Take 1 tablet by mouth once daily. adapalene (DIFFERIN) 0.1 % gel Apply to entire affected areas of acne daily up to twice daily (if needed) as directed and tolerated. No current facility-administered medications on file prior to visit. FAMILY HISTORY Problem Relation Age of Onset - None Mother - Prostate Cancer Father - Diabetes Maternal Grandfather Social History Substance Use Topics - Smoking status: Former Smoker Packs/day: 1.00 Years: 5.00 Types: Cigarettes - Smokeless tobacco: Never Used Comment: 18 years ago, quit 1984 - Alcohol use 78.0 oz/week Comment: daily- wine or beer/ average 12 drinks a week BP 142/83 Pulse 83 Resp 16 Wt 112.5 kg (248 lb) LMP 03/26/2012 BMI 42.57 kg/m2 . OBJECTIVE: APPEARANCE Well appearing, alert, in no acute distress, well-hydrated, well nourished., Morbidly obese no facial acne noted ASSESSMENT: hypertension--not at goal obesity--not improving but stable asthma--well controlled acne--well controlled on aldactone PLAN: healthy weight losing diet and regular exercise eat less sugar, bread, potato, pasta, rice, corn, corn syrup, saturated fats replace a starch or meat with a salad 1-2 times/day. increase amlodipine 10mg daily and nurse bp check in 2 wks same other medications consider adding lisinopril with careful 3 mo follow up of potassium if amlodipine is not effective reviewed note from Dr Palomo Sanford, pulmonary Estrada Castillo III MD CNOV Observed: 08/26/2017 Status: COMPLETED Source: [place] 1:40 PM [facility] REPOSITORY Office Visit (FAMPWS) JAKCIE GUAMAN ([id number]) 1965 F Date Time Provider Department 08/26/17 1:40 PM ESTRADA CASTILLO III FAMPWS During your visit today, we recorded the following information about you: Pulse Respiration Blood pressure Weight 83/minute 16/minute 142/83 112.5 kg Estrada Castillo III MD 08/26/2017 2:45 PM Signed SUBJECTIVE: This is a 52 year old female that is here today for 1. 6 wk follow up of BP. 2. has not made dietary changes or found time to exercise. 3. asthma, 2-3 /yr. : doing well on asmanex 1 puff daily. No recent need for albuterol inhaler. PAST MEDICAL HISTORY Diagnosis Date - Asthma - Benign hypertension 07/02/2017 - Chronic pain of both knees 07/02/2017 - Excessive or frequent menstruation s/p ablation - Obesity, Class III, BMI 40-49.9 (morbid obesity) ([facility]) 07/02/2017 - ERNESTINA (obstructive sleep apnea) 07/02/2017 - Other acne on face creme and med Current Outpatient Prescriptions on File Prior to Visit: spironolactone (ALDACTONE) 50 mg tablet Take 1 tablet by mouth once daily. amLODIPine (NORVASC) 5 mg tablet Take 1 tablet by mouth once daily. MOMETASONE FUROATE (ASMANEX HFA INHALATION) Inhale 1 Inhalation as instructed once daily. gabapentin (NEURONTIN) 300 mg capsule Take 1 capsule by mouth daily at bedtime. PARoxetine (PAXIL) 10 mg tablet Take 1 tablet by mouth once daily. adapalene (DIFFERIN) 0.1 % gel Apply to entire affected areas of acne daily up to twice daily (if needed) as directed and tolerated. No current facility-administered medications on file prior to visit. FAMILY HISTORY Problem Relation Age of Onset - None Mother - Prostate Cancer Father - Diabetes Maternal Grandfather Social History Substance Use Topics - Smoking status: Former Smoker Packs/day: 1.00 Years: 5.00 Types: Cigarettes - Smokeless tobacco: Never Used Comment: 18 years ago, quit 1984 - Alcohol use 78.0 oz/week Comment: daily- wine or beer/ average 12 drinks a week BP 142/83 Pulse 83 Resp 16 Wt 112.5 kg (248 lb) LMP 03/26/2012 BMI 42.57 kg/m2 . OBJECTIVE: APPEARANCE Well appearing, alert, in no acute distress, well- hydrated, well nourished., Morbidly obese no facial acne noted ASSESSMENT: hypertension--not at goal obesity--not improving but stable asthma--well controlled acne--well controlled on aldactone PLAN: healthy weight losing diet and regular exercise eat less sugar, bread, potato, pasta, rice, corn, corn syrup, saturated fats replace a starch or meat with a salad 1-2 times/day. increase amlodipine 10mg daily and nurse bp check in 2 wks same other medications consider adding lisinopril with careful 3 mo follow up of potassium if amlodipine is not effective reviewed note from Dr Palomo Sanford, pulmonary QUINTIN Borden MD, III MD 08/26/2017 2:18 PM Signed PLAN: healthy weight losing diet and regular exercise eat less sugar, bread, potato, pasta, rice, corn, corn syrup, saturated fats replace a starch or meat with a salad 1-2 times/day. increase amlodipine 10mg daily and nurse bp check in 2 wks same other medications consider adding lisinopril with careful 3 mo follow up of potassium if amlodipine is not effective Estrada Castillo III MD Referring Provider: ESTRADA CASTILLO III [[id number]] Allergies As of Date: 08/26/2017 Noted Allergy Reaction ALEVE (NAPROXEN SODIUM) 08/27/2008 4 - Hives Comments: passed out SULFA (SULFONAMIDE ANTIBIOTICS) 05/28/2005 Date Reviewed: 08/26/2017 Reviewed by: Audrey ([facility]) AUDRA Arceo - Fully Assessed Reason for Visit: 6 week follow up [Other] Primary Visit Diagnosis:Hyperlipidemia LDL goal <130 [E78.5] Other Visit Diagnoses:Benign hypertension [I10] Mild intermittent asthma, uncomplicated [J45.20] ERNESTINA (obstructive sleep apnea) [G47.33] Order(s):amLODIPine (NORVASC) 10 mg tabletTake 1 tablet by mouth once daily.Disp: 30 tabletRfl: 12 Prescriptions as of 08/26/2017 Sig: SPIRONOLACTONE 50 MG TABLET Take 1 tablet by mouth once d* ASMANEX HFA INHALATION Inhale 1 Inhalation as instru* GABAPENTIN 300 MG CAPSULE Take 1 capsule by mouth daily* PAROXETINE 10 MG TABLET Take 1 tablet by mouth once d* ADAPALENE 0.1 % TOPICAL GEL Apply to entire affected area* AMLODIPINE 10 MG TABLET Take 1 tablet by mouth once d* Problem List As Of Date 08/26/2017 Noted Resolved Leiomyoma of uterus, unspecified [D25.9] INVALID FOR*08/26/2017 Sprain of neck [S13.9XXA] INVALID FOR*08/26/2017 Other Acne [L70.8] INVALID FOR*02/17/2010 Other Seborrheic Keratosis [L82.1] INVALID FOR*02/17/2010 PLANTAR FIBROMATOSIS [M72.2] INVALID FOR* Pain in limb [M79.609] INVALID FOR*08/26/2017 Acne: Inflammatory Grade III to IV (papulonodu*INVALID FOR* Viral Wart, Unspecified [B07.9] INVALID FOR*02/17/2010 Uterine prolapse without mention of vaginal wal*INVALID FOR*08/26/2017 Hypertrophy of uterus [N85.2] INVALID FOR*08/26/2017 Postinflammatory skin changes [R23.4] INVALID FOR*08/26/2017 Obesity, Class III, BMI 40-49.9 (morbid obesity*INVALID FOR* ERNESTINA (obstructive sleep apnea) [G47.33] INVALID FOR* Benign hypertension [I10] INVALID FOR* Hyperlipidemia LDL goal <130 [E78.5] INVALID FOR* Encounter for screening for malignant neoplasm *INVALID FOR* More... Mild intermittent asthma, uncomplicated [J45.20]INVALID FOR* Other instructions from your clinician: PLAN: healthy weight losing diet and regular exercise eat less sugar, bread, potato, pasta, rice, corn, corn syrup, saturated fats replace a starch or meat with a salad 1-2 times/day. increase amlodipine 10mg daily and nurse bp check in 2 wks same other medications consider adding lisinopril with careful 3 mo follow up of potassium if amlodipine is not effective Estrada Castillo III MD Prescriptions ordered this encounter Disp Refills Start End AMLODIPINE 10 MG TABLET 30 t* 12 08/26/2017 Route: ORAL Sig: Take 1 tablet by mouth once daily. Medications Discontinued During This Encounter amLODIPine (NORVASC) 5 mg tablet 30 t* 12 07/02/2017 08/26/2017 Route: ORAL Sig: Take 1 tablet by mouth once daily. Disc: Dosage adjustment Encounter Status:Closed by ESTRADA CASTILLO III, MD on 08/26/17 PULMONARY VISIT REPORT Observed: 08/23/2017 Status: F Source: [place] 10:03 AM [facility] [address] [place] [address] OFFICE VISIT Date of Service: 08/23/17 MR#: [id number] Acct: [id number] Name: JACKIE GUAMAN Rep #: [id number] : 1965 Provider: Palomo Sanford D.O. Age/Sex: 52/F [place] [facility] [place] [place]: Signed Assessment AND Plan 1. ERNESTINA (obstructive sleep apnea) G47.33 Plan The patient's sleep apnea is currently well controlled on bilevel therapy with a pressure setting of 11/7 cm water with humidification. The patient will be continued on the same pressure settings. No changes are indicated today. 2. Asthma J45.909 Plan Currently well controlled with use of Asmanex. Compliance with Asmanex twice daily dosing has been emphasized to the patient. Continue albuterol on an as-needed basis. Patient has been advised to call this office with any worsening in her breathing quality and/or increased reliance on her rescue inhaler. Plan Detail Follow Up 6 Months (DMB) HPI HPI Comments Details: The patient is a 52-year-old female who presents to the clinic today for a routine scheduled follow-up office visit. If you recall, the patient initially presented to me for evaluation of a chronic cough and presumptive asthma. She underwent pulmonary function testing in April 2017 the results of which were within normal limits. There was no significant bronchodilator response noted. The patient has been maintained on Asmanex therapy with good control of symptoms noted. Methacholine challenge was previously discussed with the patient. However, she declined to undergo testing. The patient did undergo a diagnostic polysomnogram in June 2017 which revealed mild to moderate obstructive sleep apnea. She then underwent a titration study, for which was recommended that she be placed on BiPAP therapy with a pressure setting of 11/7 cm of water with humidification. The patient's compliance report was personally reviewed at today's office visit. She has demonstrated an overall compliance of 100% over the last 30 days. She is currently utilizing her nocturnal Pap therapy just 8 hours per night. He has a residual AHI noted to be 0.7. No significant air leaks were noted. Today, the patient reports feeling more rested and refreshed upon awakening in the morning. She denies excessive daytime hypersomnolence or napping. She has been tolerant of her BiPAP today. She denies any significant air leaks. She is currently utilizing a nasal mask provided through [employer]. She also reports overall stability in her breathing quality. She does experience occasional morning cough and chest tightness. However, she is only utilizing her Asmanex once per day. She states that she has not had to utilize her rescue inhaler with the exception of one time over the last 3 months. She denies fevers, chills or night sweats. Her weight has been stable. She denies chest pain, dizziness or lightheadedness. Intake Vital Signs08/23/17 Height 5 ft 4 in 08/23/17 Weight: 247 lb Intake Visit Reasons: 2 M FU [facility] Vendor: [employer] Allergies naproxen [From Aleve] Adverse Reaction (Intermediate, Verified 05/23/17 09:57) / sulfadiazine Adverse Reaction (Mild, Verified 05/23/17 09:57) / Medications mometasone 100 mcg/actuation HFA aerosol inhaler 1 inh INHALATION ONCE 05/23/17 [History Confirmed 05/23/17] paroxetine 10 mg tablet 10 mg PO QAM 05/23/17 [History Confirmed 05/23/17] spironolactone 50 mg tablet 50 mg PO QAM 05/23/17 [History Confirmed 05/23/17] mometasone 100 mcg/actuation HFA aerosol inhaler 2 puff INHALATION Q12H #3 device 06/19/17 [Rx] PFSH Medical History Sleep apnea (Chronic) Sneezing (Acute) Sore throat (Acute) Rhinorrhea (Chronic) Post-nasal drainage (Chronic) Nasal congestion (Acute) Hoarseness (Acute) Headache (Chronic) Asthma (Chronic) Cough (Chronic) Seasonal allergies (Chronic) Surgical History History of tonsillectomy (Resolved) H/O: hysterectomy (Resolved) Social History Smoking Status: Never smoker second hand exposure: No alcohol intake: current alcohol intake frequency: a few times a week Alcohol type: beer substance use type: does not use Review of Systems Const CONSTITUTIONAL: Negative anorexia, body ache, chills, daytime sleepiness, fever(s), night sweats, oral thrush, stops breathing during sleep, weight loss, sleeping in chair, fatigue, weight loss, weight gain, frequent colds, seasonal allergies, other, headache(s) or orthopnea EETM Ear Nose Throat Mouth: Positive hearing normal; negative hard of hearing, hoarseness, dry mouth in morning, change in vision, itchy eyes, eye pain, swallowing Difficulty, ear pain, nose bleed, headache(s), mouth pain, nasal congestion, nasal discharge, post nasal drip, sinus pain, sinus pressure, sore throat or other Cardio Cardiovascular: Negative chest pain, chest pain at rest, chest pain with activity, irregular heart rhythm, edema, shortness of breath when lying down, palpitations, murmur or other Resp Respiratory: Positive as per HPI, wheezing, cough and chest tightness; negative shortness of breath, pain with cough, chest congestion, pain on inspiration, inhalers, increase use of rescue inhalers, snoring, apnea or other Gastro Gastrointestional: Negative bloody stools, change in appetite, difficulty swallowing, reflux, hematemesis, melena stool, loose stool, constipation or other Genitourinary: Negative blood in urine, nocturia, pain with urination or other Musc Musculoskeletal: Negative body pain, back pain, neck pain or other Skin/Breast Skin/Breast: Negative dry skin, itching, rash, unusual bruising, breast lump or other Neuro Neurological: Negative restless legs, confusion, weakness or other Psych Psychocological: Negative abnormal sleep pattern, anxiety, thoughts of hurting self/others, hopelessness or other Lymph Lymphatic: Negative easy bleeding, easy bruising, swollen lymph nodes or other Exam Const Constitutional: Positive conversant, cooperative, in no acute respiratory distress, well developed, well nourished, good hygiene and obese Head Head: Positive normocephalic and atraumatic; negative cyanosis of lips/distal nose Eyes Eye: Positive clear conjunctiva; negative nystagmus or scleral abnormality Ears Ear: Positive hearing normal and external ears normal; negative hard of hearing Nose Nose: Positive external nose normal; negative epistaxis Mouth Mouth: Positive oral mucosae normal and posterior oropharynx is adequate; negative no lesions or post nasal drip Mallampati Score: II: Mallampati Score Neck Neck: Positive normal visual inspection and trachea midline; negative lymphadenopathy Chest Wall Chest: Positive symmetric chest movement Normal AP diameter. Resp lung sounds: Positive clear to auscultation and good air exchange; negative wheezes, rhonchi or rales Cardio Cardiac: Positive regular rate, regular rhythm, S1 normal and S2 normal; negative rub, gallop or murmur GI GI: Positive normal bowel sounds and obese Soft without distention Genitourinary: Positive deferred Musc Musculoskeletal: Positive steady gait Skin Pulmonary Skin Exam: Positive intact; negative lesion, ulcers, dermal atrophy or rash Pulses Pulse: Yes Pedal pulses present: Extremities Extremities: No clubbing, No cyanosis, No edema Neuro Neurologic: Yes conversant, Yes no focal neuro deficits, Yes cooperative Lymph Lymphatic: No lymphadenopathy Psych Appearance: Positive grossly normal Mental Status: Positive mental status grossly normal Mood: Positive congruent mood Affect: Positive normal affect Coding Level of Care Code Off vis,est,level 3 Diagnoses ERNESTINA (obstructive sleep apnea) G47.33 Asthma J45.909 08/23/17 1003 <Electronically signed by Palomo Sanford DO> Date Palomo Warren Signature: Date (if applicable) CC: Estrada Castillo III, MD NURSING PROG Observed: 08/16/2017 Status: COMPLETED Source: [place] 12:50 PM [facility] REPOSITORY HNO ID: [id number] Author: Brooke Rodriguez RN Service: (none) Author Type: Registered Nurse Type: Nursing Progress Note Filed: 08/16/2017 1:01 PM Note Text: Patient did not experience a fall prior to discharge. Patient did not experience a burn prior to discharge. Brooke Rodriguez RN PT ED Observed: 08/16/2017 Status: COMPLETED Source: [place] 12:48 PM [facility] REPOSITORY HNO ID: [id number] Author: Brooke Rodriguez RN Service: (none) Author Type: Registered Nurse Type: Patient Education Filed: 08/16/2017 12:49 PM Note Text: POST OP LEARNING RESPONSE INSTRUCTION PROVIDED TO: Patient and family member METHOD OF INSTRUCTION: Individual instruction Written instruction - handouts Demonstration-Hands on Learning PATIENT / FAMILY RESPONSE: Information received as demonstrated by interest and questions FOLLOW-UP PLAN: Follow up phone call. Contact information given. SUPPLEMENTAL MATERIAL: Procedure discharge instructions REFERRAL (RECOMMENDATION): None Electronically Signed By: Brooke Rodriguez RN In Department: AMBULATORY SURGERY NURSING PROG Observed: 08/16/2017 Status: COMPLETED Source: [place] 12:10 PM [facility] REPOSITORY HNO ID: [id number] Author: Brooke Rodriguez RN Service: (none) Author Type: Registered Nurse Type: Nursing Progress Note Filed: 08/16/2017 12:55 PM Note Text: Arrived in phase II via cart. Left lateral position. Sedated, but responds to verbal stimuli. Color normal; skin warm and dry. Respirations wnl and unlabored. Abdomen soft and with + bowel sounds in quads X 4. Family at bedside. Patient resting comfortably. Dr. Pedro at bedside to review procedure and recommendations. Brooke Rodriguez RN NURSING PROG Observed: 08/16/2017 Status: COMPLETED Source: [place] 12:08 PM [facility] REPOSITORY HNO ID: [id number] Author: Jasmina MercadoRnArelis Chaves RN Service: (none) Author Type: Registered Nurse Type: Nursing Progress Note Filed: 08/16/2017 12:08 PM Note Text: Patient did not experience a fall within the Intraoperative area. Patient did not experience a burn within the Intraoperative area. Jasmina Chaves RN NURSING PROG Observed: 08/16/2017 Status: COMPLETED Source: [place] 11:36 AM [facility] REPOSITORY HNO ID: [id number] Author: Светлана MercadoRn) JEFFERY Jackson Service: (none) Author Type: Registered Nurse Type: Nursing Progress Note Filed: 08/16/2017 11:37 AM Note Text: [facility] PRE-OP NURSING HAND OFF NOTE SBAR Hand off given to Jasmina Chaves RN. Hand off was communicated verbally and at the patient's bedside and all questions were answered. FALLS/PABLO Patient did not experience a fall within the Preoperative area. Patient did not experience a burn within the Preoperative area. Светлана Jackson RN PT ED Observed: 08/16/2017 Status: COMPLETED Source: [place] 10:33 AM [facility] REPOSITORY HNO ID: [id number] Author: Ade MercadoRnArelis Herman RN Service: (none) Author Type: Registered Nurse Type: Patient Education Filed: 08/16/2017 10:34 AM Note Text: PRE OP LEARNING ASSESSMENT PROCEDURE/SURGERY: GI PROCEDURES: Colonoscopy READINESS TO LEARN COGNITIVE ABILITY: Alert and oriented MOTIVATION TO LEARN: Eager Interested FAMILY SUPPORT: High - Very involved in pt care PATIENT LEARNS BEST BY: Individual Instruction Written Instruction - Hand-outs Verbal Instruction Multiple Methods FACTORS AFFECTING LEARNING: None PHYSICAL LIMITATIONS AFFECTING LEARNING: None Electronically Signed By: Ade Herman RN In Department: AMBULATORY SURGERY XR KNEE 4V AP/PA Observed: 08/07/2017 Status: F Source: [place] BOTH+LAT/APPLE RT 12:00 PM [facility] REPOSITORY * * *Final Report* * * DATE OF EXAM: Aug 07 2017 12:00PM WOX [id number] - XR KNEE 4V AP/PA BOTH+LAT/APPLE RT / PROCEDURE REASON: Unspecified injury of right lower leg, initial encounter * * * * Physician Interpretation * * * * PROCEDURE: Right knee INDICATION: Unspecified injury of right lower leg, initial encounter . TECHNIQUE: XR KNEE 4V AP/PA BOTH+LAT/APPLE RT COMPARISON: None FINDINGS: No fractures or dislocations are seen. No joint effusion or joint body is evident. The joint spaces are maintained without evidence for significant degenerative or arthritic change. IMPRESSION: Negative. Hand Candy Cutter: PSCB Transcribe Date/Time: Aug 07 2017 12:13P Dictated by : JOCELYNE RODRIGUEZ MD This examination was interpreted and the report reviewed and electronically signed by: JOCELYNE RODRIGUEZ MD on Aug 07 2017 12:14PM EST [id number] PROGRESS Observed: 08/07/2017 Status: COMPLETED Source: [place] 11:50 AM [facility] REPOSITORY HNO ID: [id number] Author: Sandra MercadoRt) Mario Alberto Rg Service: (none) Author Type: Cause Analyst Type: Progress Notes Filed: 08/07/2017 12:01 PM Note Text: Radiology Service Progress Note PATIENT NAME: Jackie Guaman DATE OF SERVICE: August 07, 2017 TIME: 11:50 AM PATIENT IDENTITY VERIFICATION COMPLETED USING TWO (2) METHODS: Patient confirmed name verbally and Date of . PATIENT GENDER DATA: Female. status: : No status: NO. PATIENT RELEVANT IMPLANT DATA REVIEWED: Not Applicable RADIOLOGY DEPARTMENT: General X-ray: Exam(s) Completed: Lower Extremity X-Ray(s): Knee, AP / Lat / Tunne / Merchant Right: PERIPHERAL IV DATA: Not applicable SIGNED BY: RT Mani August 07, 2017 11:50 AM PROGRESS Observed: 08/07/2017 Status: COMPLETED Source: [place] 11:34 AM [facility] REPOSITORY HNO ID: [id number] Author: Tien Mendieta (Pa) Service: (none) Author Type: Physician Solution Sales Senior Executive Type: Progress Notes Filed: 08/07/2017 12:39 PM Note Text: Subjective HPI Pt presents with a right knee injury x 3 days. She was walking on some rocks along [place] and they were icy and she fell landing on the right knee. No problems with the knee in the past. No hip or ankle pain. Review of Systems Musculoskeletal: Positive for joint pain. All other systems reviewed and are negative. Objective Physical Exam Constitutional: She is oriented to person, place, and time and well-developed, well-nourished, and in no distress. HENT: Head: Normocephalic and atraumatic. Cardiovascular: Normal rate and regular rhythm. Pulmonary/Chest: Effort normal and breath sounds normal. Musculoskeletal: Pt has some mild anterior bruising of the right knee. She will not allow me to palpate the anterior knee . She is able to flex and extend at the knee. No tenderness of the anterior lower leg. Laxity not able to be assessed for as pt will not allow me to touch the knee. Neurological: She is alert and oriented to person, place, and time. Skin: Skin is warm and dry. Psychiatric: Affect and judgment normal. Nursing note and vitals reviewed. ASSESSMENT/PLAN: 1. Injury of right knee, initial encounter - ICD9: 959.7, ICD10: S89.91XA Xrays here are negative for fracture or degenerative changes. I discussed continuing the ibuprofen she is taking already and ice and elevation. I feel she has a contusion. If not better in one to two weeks return. She is comfortable with this. - XR KNEE INJURY 4V AP/LAT/OBLS RT - XR KNEE GENERAL 4V AP BOTH/PA BOTH/LAT/MERC RT Tien Mendieta PA-C HISTORY PHYSICAL Observed: 07/22/2017 Status: COMPLETED Source: [place] 2:06 PM [facility] REPOSITORY HNO ID: [id number] Author: Herlinda Yanez Service: (none) Author Type: Nurse Practitioner Type: HANDP Filed: 07/22/2017 2:34 PM Note Text: Jackie Guaman a 52 year old female who is referred by Dr. Estrada Castillo for a screening colonoscopy. The patient has not been seen previously. The patient denies a family history of colon cancer. Presenting complaint: The patient denies change in bowel habits, rectal bleeding or abdominal pain. Having a bowel movement daily. Occasional diarrhea, which unfortunately kicked her out of open access before we could review the chart. The patient has been prescribed Paxil and Neurontin for hot flashes. REVIEW OF SYSTEMS: GENERAL: No unplanned weight loss. RESPIRATORY: Reported history of asthma. CARDIOVASCULAR: Hypertension- monitored and on medication. GI: The patient states that her appetite has been good. She does get hungry. There has been no nausea, no vomiting. She denies dysphagia and denies odynophagia. There has not been indigestion or heartburn. There has not been regurgitation. Bowel habits have been regular. There has occasionally been diarrhea. There has not been constipation. The patient denies rectal bleeding. There has not been melena. No abdominal pain. 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 LMP: 2011. MUSCULOSKELETAL: Negative for joint pain or swelling, back pain or muscle pain PSYCH: Negative for sleep disturbance, mood disorder and recent psychosocial stressors. HEMATOLOGY/LYMPHOLOGY Negative for prolonged bleeding, bruising easily or swollen nodes ENDOCRINE: Negative for thyroid or diabetes. NEURO: No history of headaches, syncope, paralysis, seizures or tremors All other reviewed and negative other than HPI. PAST MEDICAL HISTORY Diagnosis Date - Benign hypertension 07/02/2017 - Chronic pain of both knees 07/02/2017 - Excessive or frequent menstruation s/p ablation - Obesity, Class III, BMI 40-49.9 (morbid obesity) (HCC) 07/02/2017 - ERNESTINA (obstructive sleep apnea) 07/02/2017 - Other acne on face creme and med PAST SURGICAL HISTORY Procedure Laterality Date - PAST SURGICAL HISTORY OF 11/20 novasure procedure-(uterus) - REMOVAL OF TONSILS,12+ Y/O - VAGINAL HYSTERECTOMY 06/04/12 1.) Transvaginal hysterectomy greater than 250 g which will be dictated by Dr. Antonio in which I assisted. 2.) FAMILY HISTORY Problem Relation Age of Onset - None Mother - Prostate Cancer Father - Diabetes Maternal Grandfather Current Outpatient Prescriptions: spironolactone (ALDACTONE) 50 mg tablet Take 1 tablet by mouth once daily. Disp: 90 tablet Rfl: 3 amLODIPine (NORVASC) 5 mg tablet Take 1 tablet by mouth once daily. Disp: 30 tablet Rfl: 12 MOMETASONE FUROATE (ASMANEX HFA INHALATION) Inhale 1 Inhalation as instructed once daily. Disp: Rfl: gabapentin (NEURONTIN) 300 mg capsule Take 1 capsule by mouth daily at bedtime. Disp: 30 capsule Rfl: 12 PARoxetine (PAXIL) 10 mg tablet Take 1 tablet by mouth once daily. Disp: 30 tablet Rfl: 12 adapalene (DIFFERIN) 0.1 % gel Apply to entire affected areas of acne daily up to twice daily (if needed) as directed and tolerated. Disp: 45 g Rfl: 6 No current facility-administered medications for this visit. SOCIAL HISTORY: Patient is . She quit smoking in 1984 and reports her alcohol use as everyday having beer or wind with a meal. PHYSICAL EXAMINATION: Blood pressure 153/86, pulse 90, height 162.6 cm (5' 4), weight 113.9 kg (251 lb 3.2 oz), last menstrual period 03/26/2012. General Appearance: Well appearing, alert, in no acute distress, well-hydrated, well nourished. Skin: Skin color, texture, turgor normal. Eyes: Anicteric sclera. . Oropharynx: Lips, mucosa, and tongue normal, teeth and gums normal, oropharynx normal. Neck: Supple, no adenopathy; thyroid symmetric, normal size. Lungs: Lungs clear to auscultation. No wheezing, rhonchi, rales. Heart: RRR without murmur.y. Abdomen: Abdomen soft, non-tender. Bowel sounds normal. No masses, organomegaly. Extremities: No deformities, edema. Impression: colorectal cancer screening Plan: This patient will be scheduled for a colonoscopy using GoLytely as the prep. The preparation, as well as the procedure, has been explained in detail. The risks, benefits, anticipated outcomes and possible complications were mentioned. I explained the procedure in understandable terms and the patient was given printed material concerning the planned procedure. The patient had the opportunity to ask questions concerning the planned procedure. The patient freely consents to the planned procedure. The patient is asked to call with any questions for concerns, or should there be any change in health status between now and the scheduled procedure. I have personally interviewed and examined this patient. I have read the information the MA documented in this encounter. This visit was at least 25 minutes in length with a majority of the time spent in review of the past records with the patient, discussion and counseling. Herlinda Yanez RN [facility] Observed: 07/22/2017 Status: COMPLETED Source: [place] 12:00 AM [facility] REPOSITORY Patient:Jackie Guaman MRN: <[id number]> Height:5' 4(1.626 m) Weight:248 lb 6.4 oz (112.674 kg) Outpatient Medications as of 08/16/17: spironolactone (ALDACTONE) 50 mg tablet amLODIPine (NORVASC) 5 mg tablet MOMETASONE FUROATE (ASMANEX HFA INHALATION) gabapentin (NEURONTIN) 300 mg capsule PARoxetine (PAXIL) 10 mg tablet adapalene (DIFFERIN) 0.1 % gel Admission/Clinic Administered Medications as of 08/16/17: lactated ringers infusion Problem List: Leiomyoma of uterus, unspecified [D25.9] Sprain of neck [S13.9XXA] DTFB////BENIGN JOSE ANGEL SKIN ARM [D23.60] Plantar fascial fibromatosis [M72.2] Pain in limb [M79.609] SOLAR LENTIGINES///DYSCHROMIA OTHER [L81.9] ACTINIC DAMAGE///CHR SOLAR SKIN DAMAGE NOS [L57.8] Acne: Inflammatory Grade III to IV (papulonodular [L70.8] Seborrheic Keratosis [L82.1] Viral Wart, Unspecified [B07.9] Closed fracture of one or more phalanges of foot [S92.919A] Unspecified pruritic disorder [L29.9] Unspecified noninflammatory disorder of vulva and perineum [N90.9] Uterine prolapse without mention of vaginal wall prolapse [N81.4] Hypertrophy of uterus [N85.2] Scars (Acne related, lower face chin area) [L90.5] Postinflammatory skin changes [R23.4] Obesity, Class III, BMI 40-49.9 (morbid obesity) (HCC) [E66.01] Chronic pain of both knees [M25.561, M25.562, G89.29] ERNESTINA (obstructive sleep apnea) [G47.33] Benign hypertension [I10] Hyperlipidemia LDL goal <130 [E78.5] Encounter for screening for malignant neoplasm of colon [Z12.11] Allergies: Aleve [Naproxen Sodium] Sulfa (Sulfonamide Antibiotics) Date Verified: 08/16/17 Lab Values No results within the last 30 days for the following basenames: K,HCT Progress Notes ([facility]): RT Mani, Tech 08/07/2017 12:01 PM Signed Radiology Service Progress Note PATIENT NAME: Jackie Guaman DATE OF SERVICE: August 07, 2017 TIME: 11:50 AM PATIENT IDENTITY VERIFICATION COMPLETED USING TWO (2) METHODS: Patient confirmed name verbally and Date of . PATIENT GENDER DATA: Female. status: : No status: NO. PATIENT RELEVANT IMPLANT DATA REVIEWED: Not Applicable RADIOLOGY DEPARTMENT: General X-ray: Exam(s) Completed: Lower Extremity X-Ray(s): Knee, AP / Lat / Tunne / Merchant Right: PERIPHERAL IV DATA: Not applicable SIGNED BY: RT Mani August 07, 2017 11:50 AM Progress Notes ([facility]): Tien Mendieta PA-C 08/07/2017 12:39 PM Signed Subjective HPI Pt presents with a right knee injury x 3 days. She was walking on some [place] and they were icy and she fell landing on the right knee. No problems with the knee in the past. No hip or ankle pain. Review of Systems Musculoskeletal: Positive for joint pain. All other systems reviewed and are negative. Objective Physical Exam Constitutional: She is oriented to person, place, and time and well-developed, well-nourished, and in no distress. HENT: Head: Normocephalic and atraumatic. Cardiovascular: Normal rate and regular rhythm. Pulmonary/Chest: Effort normal and breath sounds normal. Musculoskeletal: Pt has some mild anterior bruising of the right knee. She will not allow me to palpate the anterior knee . She is able to flex and extend at the knee. No tenderness of the anterior lower leg. Laxity not able to be assessed for as pt will not allow me to touch the knee. Neurological: She is alert and oriented to person, place, and time. Skin: Skin is warm and dry. Psychiatric: Affect and judgment normal. Nursing note and vitals reviewed. ASSESSMENT/PLAN: 1. Injury of right knee, initial encounter - ICD9: 959.7, ICD10: S89.91XA Xrays here are negative for fracture or degenerative changes. I discussed continuing the ibuprofen she is taking already and ice and elevation. I feel she has a contusion. If not better in one to two weeks return. She is comfortable with this. - XR KNEE INJURY 4V AP/LAT/OBLS RT - XR KNEE GENERAL 4V AP BOTH/PA BOTH/LAT/MERC RT Tien Mendieta PA-C PROGRESS Observed: 07/16/2017 Status: COMPLETED Source: [place] 9:25 AM [facility] REPOSITORY HNO ID: [id number] Author: Raya Bloom LPN Service: (none) Author Type: (none) Type: Progress Notes Filed: 07/16/2017 9:37 AM Note Text: Manual Readin/96 Pulse: 76 BP [place]apha average: 135/81 P: 80 Reason for blood pressure check - Last BP elevated and Medication adjustment Patient is: Taking medication as prescribed Yes Took medication today Yes If no, date medication last taken N/A Experiencing side effects No BP was elevated at last appt 07/02/17. Was started on Amlodipine 5m daily. Tolerating medication well. Denies any chest pain, shortness of breath, dizziness, or headaches. Daily caffeine use. Past personal history of tobacco use; no current exposure. Alert and oriented. Pt has been identified by name and birthdate: Yes Allergies reviewed: Yes Latex allergy: no. Medication - prescribed and OTC reviewed and updated: Yes Do you need any prescription refills prior to your next visit: No Health Maintenance: Reviewed and not up to date and provider notified Patient advised to continue with current medications and would be contacted with any further instructions after review by PCP. Raya Bloom LPN CNNURSE Observed: 07/16/2017 Status: COMPLETED Source: [place] 9:15 AM [facility] REPOSITORY Nurse Visit (FAMPWS) JACKIE GUAMAN ([id number]) 1965 F Date Time Provider Department 07/16/17 9:15 AM [place] [facility]SE [facility] During your visit today, we recorded the following information about you: Pulse Blood pressure 80/minute 135/81 Raya Bloom LPN 07/16/2017 9:37 AM Signed Manual Readin/96 Pulse: 76 BP Mustapha average: 135/81 P: 80 Reason for blood pressure check - Last BP elevated and Medication adjustment Patient is: Taking medication as prescribed Yes Took medication today Yes If no, date medication last taken N/A Experiencing side effects No BP was elevated at last appt 07/02/17. Was started on Amlodipine 5m daily. Tolerating medication well. Denies any chest pain, shortness of breath, dizziness, or headaches. Daily caffeine use. Past personal history of tobacco use; no current exposure. Alert and oriented. Pt has been identified by name and birthdate: Yes Allergies reviewed: Yes Latex allergy: no. Medication - prescribed and OTC reviewed and updated: Yes Do you need any prescription refills prior to your next visit: No Health Maintenance: Reviewed and not up to date and provider notified Patient advised to continue with current medications and would be contacted with any further instructions after review by PCP. Raya Bloom LPN Referring Provider: ESTRADA CASTILLO III [[id number]] Allergies As of Date: 07/16/2017 Noted Allergy Reaction ALEVE (NAPROXEN SODIUM) 08/27/2008 4 - Hives Comments: passed out SULFA (SULFONAMIDE ANTIBIOTICS) 05/28/2005 Date Reviewed: 07/02/2017 Reviewed by: Audrey ([facility]) AUDRA Arceo - Fully Assessed Reason for Visit: Blood Pressure Check [195] Primary Visit Diagnosis:Benign hypertension [I10] Prescriptions as of 07/16/2017 Sig: SPIRONOLACTONE 50 MG TABLET Take 1 tablet by mouth once d* AMLODIPINE 5 MG TABLET Take 1 tablet by mouth once d* ASMANEX HFA INHALATION Inhale 1 Inhalation as instru* GABAPENTIN 300 MG CAPSULE Take 1 capsule by mouth daily* PAROXETINE 10 MG TABLET Take 1 tablet by mouth once d* ADAPALENE 0.1 % TOPICAL GEL Apply to entire affected area* Problem List As Of Date 07/16/2017 Noted Resolved UTERINE LEIOMYOMA NOS [D25.9] INVALID FOR* SPRAIN OF NECK [S13.9XXA] INVALID FOR* Other Acne [L70.8] INVALID FOR*02/17/2010 Other Seborrheic Keratosis [L82.1] INVALID FOR*02/17/2010 DTFB////BENIGN JOSE ANGEL SKIN ARM [D23.60] INVALID FOR* PLANTAR FIBROMATOSIS [M72.2] INVALID FOR* PAIN IN LIMB [M79.609] INVALID FOR* SOLAR LENTIGINES///DYSCHROMIA OTHER [L81.9] INVALID FOR* ACTINIC DAMAGE///CHR SOLAR SKIN DAMAGE NOS [L57*INVALID FOR* Acne: Inflammatory Grade III to IV (papulonodu*INVALID FOR* Viral Wart, Unspecified [B07.9] INVALID FOR*02/17/2010 Seborrheic Keratosis [L82.1] INVALID FOR* Viral Wart, Unspecified [B07.9] INVALID FOR* Closed fracture of one or more phalanges of luis e*INVALID FOR* Unspecified pruritic disorder [L29.9] INVALID FOR* Unspecified noninflammatory disorder of vulva a*INVALID FOR* Uterine prolapse without mention of vaginal wal*INVALID FOR* Hypertrophy of uterus [N85.2] INVALID FOR* Scars (Acne related, lower face chin area) [L90*INVALID FOR* Postinflammatory skin changes [R23.4] INVALID FOR* Obesity, Class III, BMI 40-49.9 (morbid obesity*INVALID FOR* Chronic pain of both knees [M25.561, M25.562, G*INVALID FOR* ERNESTINA (obstructive sleep apnea) [G47.33] INVALID FOR* Benign hypertension [I10] INVALID FOR* Hyperlipidemia LDL goal <130 [E78.5] INVALID FOR* Classic SmartForms filed during this visit: Extended Vitals Encounter Status:Closed by RAYA BLOOM LPN on 07/16/17 PROGRESS Observed: 07/12/2017 Status: COMPLETED Source: [place] 1:31 PM [facility] REPOSITORY HNO ID: [id number] Author: Brittany Francois Service: (none) Author Type: (none) Type: Progress Notes Filed: 07/12/2017 1:35 PM Note Text: Called patient 3 times and left voice messages, mailing colonoscopy letter Brittany Francois ALLERGIES ALLERGIES DATE TYPE / CODE NAME / CODE REACTION SEVERITY SOURCE 07/04/2018 Drug naproxen/L03846 / [place] [facility] Allergy/416 2380(RXNORM) [facility] 178841(SN Repository ED CT) 07/04/2018 Drug sulfadiazine/F0 / [place] [facility] Allergy/416 81956702(RXNORM Hospital 337394(SNOM ) Repository ED CT) 08/27/2008 DRUG NAPROXEN SODIUM HIVES [facility] INGREDI/[address] 573895(SNOM Repository ED CT) 05/28/2005 Drug SULFA [facility] Class/13285 (SULFONAMIDE [place] 1003(SNOMED ANTIBIOTICS) Repository CT) ENCOUNTERS ENCOUNTERS ADMIT/DISCHARGE ACCOUNT ADMITTING ENCOUNTER LOCATION SOURCE NUMBER CLASS 07/04/2018/07/04/[id number] ing:SDCRoom: Repository AC03 06/23/2018 [id number] [facility] ing:MFPLAB Repository 05/28/2018 [id number] [facility] ing:MRI Repository 05/09/2018 [id number] [facility] ing:PT Repository 03/18/2018/03/18/20 [id number] Ambulatory BMSBuilding:[place] [address] Repository 10/28/2017 [id number] [facility] ing:MFPLAB Repository 09/16/2017/09/18/19 [id number] Ambulatory [address] Repository 08/26/2017/08/28/[id number] Repository 08/23/2017/08/24/19 [id number] Ambulatory BMSBuilding:[address] [place] [address] [facility] Repository 08/16/2017/08/17/19 [id number] [place], [address] Repository 08/07/2017/08/07/19 [id number] Ambulatory [address] Repository 08/07/2017/08/08/19 [id number] Ambulatory [address] Repository 07/22/2017/07/23/19 [id number] Ambulatory [address] Repository 07/16/2017/07/16/19 [id number] Ambulatory [address] Repository 07/02/2017/07/05/19 [id number] Ambulatory [address] Repository PAYERS PAYERS ENCOUNTER GUARANTOR PAYER SUBSCRIBER SOURCE 07/04/2018 LOLA Steven Primary LOLA Steven [place] [id number] Insurance:AULTCAREPol NADELINDOB: [place]: [id number] [id number] Repository [address]Aji: (330) Date:[phone] (HP) [place] [address]GU: 07/04/2018 Secondary NOT GIVENUNK [place] Insurance:[facility]LF PAY [facility]: Effective Repository Date:2018-05-20 06/23/2018 JACKIE K Primary LOLA Steven [place] [id number] Insurance:AULTCAREPol NADELINDOB: Community CRATER icy Number: [id number], [place] [id number] Repository [address]Mam: (330) Date:8694-18-42[phone] (HP) [address] [address]MQ: 06/23/2018 Secondary NOT GIVENUNK [place] Insurance:SELF PAY [facility]: Effective Repository Date:2018-06-23 05/28/2018 JACKIE K Primary LOLA Stone [id number] Insurance:AULTCAREPol NADELINDOB: Community CRATER icy Number: [id number], [place] [id number] Repository [address]Abj: (330) Date:1621-53-23CE [phone] (HP) [address] [address]OC: 05/28/2018 Secondary NOT GIVENUNK [place] Insurance:SELF PAY [facility] Number: Effective Repository Date:2018-05-21 05/09/2018 LOLA Steven Primary LOLA Steven [place] [id number] Insurance:AULTCAREPol NADELINDOB: Community Crater icy Number: [id number], [place] [id number] Repository [address]: (330) Date:2689-74-07PS [phone] (HP) [place] [address]LN: 05/09/2018 Secondary NOT GIVENUNK [place] Insurance:SELF PAY [facility] Number: Effective Repository Date:2018-04-23 03/18/2018 LOLA A Primary LOLA Stone [id number] Insurance:AULTCAREPol NadelinDOB: Community Crater icy Number: [id number], [place] [id number] Repository [address]Uam: 330) Date:0956-38-88CC [phone] (HP) [address] [address]PY: 03/18/2018 Secondary NOT GIVENUNK [place] Insurance:SELF PAY [facility]: Effective Repository Date:2018-03-11 10/28/2017 LOLA A Primary LOLA Stone [id number] Insurance[facility]ULTCAREPol [facility] Number: [id number], [place] [id number] Repository [address]Rwi: Date:0968-27-17LX [phone] [place], [place] [address] () [phone]: 10/28/2017 Secondary NOT GIVENUNK [place] Insurance:SELF PAY [facility] Number: Effective Repository Date:2017-10-28 08/23/2017 LOLA A Primary LOLA Stone [id number] Insurance:AULTCAREPol NadelinDOB: Community Crater icy Number: [id number], [place] [id number] Repository [address]Rzp: Date:5561-50-39UB [phone] () [phone]: 08/23/2017 Secondary NOT GIVENUNK [place] Insurance:SELF PAY [facility] Number: Effective Repository Date:2017-05-23
== END ==
PROVIDERS: Family Provider Family Medicine; PCP Family Medicine; Referring Provider Podiatrist; Visit Provider Podiatrist
DX: M72.2 Plantar fascial fibromatosis (principal); M77.32 Calcaneal spur, left foot
CPT/HCPCS: 73718

== ENCOUNTER → 2018-06-23 11:52 | Outpatient (CLI) | payer OTHER, SELFPAY ==
[2018-06-23 14:22] LABS: Anion Gap 9 (5-15); BUN 15 mg/dL (7-18); BUN/Creat Ratio 16.8 RATIO (10-20); Calcium,Total 9.7 mg/dL (8.5-10.1); Chloride 103 mmol/L (98-107); Creatinine, Serum 0.89 mg/dL (0.55-1.02); EST Glomerular Filtration Rate 70 mL/min (>60); Est Glom Filt Rate - Afr Amer 85 mL/min (>60); Glucose 95 mg/dL (74-106); Potassium 4.3 mmol/L (3.5-5.1); Sodium Level 138 mmol/L (136-145)
[2018-06-23 14:26] LABS: Hematocrit 43.2 % (37-47); Hemoglobin 14.6 g/dl (12.0-15.0); Mean Corp Hgb Conc 33.8 g/gl (32-36); Mean Corpuscular Hgb 33.5 pg (27.0-32.0); Mean Corpuscular Volume 99.1 fL (81-99); Platelet Count 328 K/mm3 (150-450); RBC Distribution Width CV 12.3 % (11.6-14.6); Red Blood Count 4.36 M/mm3 (4.2-5.4); White Blood Count 6.8 K/mm3 (4.4-11.0)
[2018-06-23 14:29] LABS: Scan Indicated on CBC? Y/N NO
== END ==
PROVIDERS: Family Provider Family Medicine; PCP Family Medicine; Visit Provider Family Medicine
DX: Z01.818 Encounter for other preprocedural examination (principal)
CPT/HCPCS: 36415; 80048; 85027

== ENCOUNTER 2018-07-04 05:54 | Day surgery (SDC) | payer OTHER, SELFPAY ==
[2018-03-18 09:54] VITALS: BMI 40.1
[2018-07-04 06:22] VITALS: BP 118/73; PULSE 83; RESP 12; TEMP 36.8; O2SAT 100; BMI 39.5
[2018-07-04] MEDS: Cefazolin 2 GM in 0.9% Normal Saline 100 ML IV (07:19)
--- NOTE | 2018-07-04 07:30 | RAD_ITS ---
STUDY: X-RAY - LEFT FOOT CLINICAL: Female, 53 years old. Left resection intracranial heel TECHNIQUE: 3 view(s) of the foot. COMPARISON: None. FINDINGS: 3 images were submitted, as radiology support for c-arm imaging in the operating room. This is not a diagnostic examination. Images for documentation purposes only. Fluoroscopy time if reported: RAD/Foot 2 Views IMPRESSION: Intraoperative fluoroscopic image guidance. Electronically Signed: Julianna Walton MD at 3:36 EST , Service support ,
[2018-07-04] MEDS: Bupivacaine Mpf 0.5% 30 ML VIAL (07:38)
--- NOTE | 2018-07-04 08:10 | PCM.DC.POD ---
Discharge Diet: Light diet - advance as tolerated Discharge Activity: May Not Drive Weight Bearing Status: No weight bearing - No weightbearing left foot Keep extremity elevated above heart level: Left Leg - Keep left foot elevated using pillows for at least 50 minutes of every hour Call your doctor if your incision/area has: Continuous Slow Oozing, Sudden Increased Bleeding, Increased Redness, Foul Smelling Discharge Call your doctor if you observe: Fever of 101 or Higher, Coldness, Increased Pain, Shortness of breath, Chest pain, Increased palpitations (irregular heartbeat), Calf discomfort, Uncontrolled pain Cleanse incision/area with: Do not get Incision Wet, Keep Dressing Clean & Dry Allergies/Adverse Reactions: Allergies naproxen [From Aleve] Adverse Reaction (Intermediate, Verified 07/04/18 06:20) / sulfadiazine Adverse Reaction (Mild, Verified 07/04/18 06:20) / Medications to take at Discharge spironolactone 50 mg tablet 50 mg PO QAM 05/23/17 mometasone 100 mcg/actuation HFA aerosol inhaler 2 puff INHALATION Q12H #3 device 06/19/17 lisinopril 10 mg tablet 20 mg PO DAILY 03/18/18 Amberen 2 cap PO DAILY 06/27/18 Multivitamin [Daily Multiple Vitamin] 1 each PO DAILY 06/27/18 Hydrocodone/Acetaminophen [[place] 5-325 Tablet] 1 ea PO Q6H PRN PRN #30 tab 07/04/18 The following prescriptions were given: Hydrocodone/Acetaminophen [[place] 5-325 Tablet] 1 ea PO Q6H PRN PRN #30 tab PRN Reason: Pain Primary Care Physician: Alex Farris MD [Primary Care Provider] - Test Results: Test results from this visit will be discussed in further detail at your follow-up appointment, if applicable. Please Follow Up With: Michael Boyle DPM When: 1 week, sooner if needed
[2018-07-04 08:11] VITALS: BP 118/73; BP 129/72; PULSE 71; RESP 16; TEMP 36.7; O2SAT 99
--- NOTE | 2018-07-04 08:13 | PCM.OPRPT ---
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 She has elected to undergo surgical intervention - plantar fasciotomy with resection of infracalcaneal heel spur. This was discussed with her in detail, reviewed the possible benefits vs risks, goals, expectations, alternative options, and typical healing/post op recovery. The consent forms were reviewed with her, and she freely signed them. All of her questions were answered. No guarantees were given nor implied. Operative Procedure: The patient was brought back into the operating room and was placed on the operating room table in the supine position. She was carefully secured to the operating room table with a safety belt around the waist. A time out was performed and the patient was properly identified and the surgical plan was confirmed. The patient received 2g of IV Cefazolin for antibiotic prophylaxis. A well padded pneumatic tourniquet was applied around the patient's left ankle. The patient received MAC anesthesia per the anesthesia team, and a total of 20mL of 0.5% Bupivacaine plain was given as a regional nerve block around the heel surgical site. The left foot was scrubbed, prepped, draped in the usual aseptic fashion. The left foot was elevated for 3 minutes and the right ankle pneumatic tourniquet was inflated to 250mmHg. The infracalcaneal spur was visualized on intra operative fluoroscopy, image was saved. A skin incision was made to the medial hindfoot at the level of the plantar fascia and infracalcaneal spur, careful dissection was completed down through the subcutaneous tissue layer. A plane was created superiorly and inferiorly around the plantar fascia and the medial 50% of the plantar fascia was released via a plantar fasciotomy. It was noted there was significant thickening of the plantar fascia with fibrosis consistent with chronic plantar fasciitis. The infracalcaneal spur was felt, and was carefully resected using a powered rasp. Resection of the infracalcaneal spur was confirmed using intraoperative fluoroscopy. Images pre and post infracalcaneal spur resection were saved. The site was flushed out with copious amounts of normal saline solution. The skin was reapproximated using 3-0 Nylon. The pneumatic tourniquet was deflated (total tourniquet time was 21 minutes), and there was immediate return of warmth and perfusion to the foot and to all toes on the foot with normal temperature gradient and CFT < 2 seconds to all toes. Hemostasis was achieved. A dressing was applied which consisted of Betadine soaked adaptic, 4x4 gauze, Kerlix and ashok bandage, being sure to apply it not to tight. The patient tolerated the above operative procedure well at the anesthesia well with no complication. The patient was transported to the recovery room with vital signs stable and in good condition. Post operative orders were placed. Post operative instructions were reviewed and dispensed verbal and written. No weightbearing left foot, keep left foot elevated for at least 50 minutes of every hour, keep dressing clean, dry and intact. Prescription for [place] 1-2 tabs PO q 6 hours prn pain was prescribed. She is to follow up with me within 1 week or sooner if needed. Grafts/Implants Used: None - Complications None
[2018-07-04 08:15] VITALS: BP 116/79; BP 118/73; PULSE 72; RESP 16; O2SAT 98
--- NOTE | 2018-07-04 08:16 | OP.PCM_ITS ---
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 She has elected to undergo surgical intervention - plantar fasciotomy with resection of infracalcaneal heel spur. This was discussed with her in detail, reviewed the possible benefits vs risks, goals, expectations, alternative options, and typical healing/post op recovery. The consent forms were reviewed with her, and she freely signed them. All of her questions were answered. No guarantees were given nor implied. Operative Procedure: The patient was brought back into the operating room and was placed on the operating room table in the supine position. She was carefully secured to the operating room table with a safety belt around the waist. A time out was performed and the patient was properly identified and the surgical plan was confirmed. The patient received 2g of IV Cefazolin for antibiotic prophylaxis. A well padded pneumatic tourniquet was applied around the patient's left ankle. The patient received MAC anesthesia per the anesthesia team, and a total of 20mL of 0.5% Bupivacaine plain was given as a regional nerve block around the heel surgical site. The left foot was scrubbed, prepped, draped in the usual aseptic fashion. The left foot was elevated for 3 minutes and the right ankle pneumatic tourniquet was inflated to 250mmHg. The infracalcaneal spur was visualized on intra operative fluoroscopy, image was saved. A skin incision was made to the medial hindfoot at the level of the plantar fascia and infracalcaneal spur, careful dissection was completed down through the subcutaneous tissue layer. A plane was created superiorly and inferiorly around the plantar fascia and the medial 50% of the plantar fascia was released via a plantar fasciotomy. It was noted there was significant thickening of the plantar fascia with fibrosis consistent with chronic plantar fasciitis. The infracalcaneal spur was felt, and was carefully resected using a powered rasp. Resection of the infracalcaneal spur was confirmed using intraoperative fluoroscopy. Images pre and post in fracalcaneal spur resection were saved. The site was flushed out with copious amounts of normal saline solution. The skin was reapproximated using 3-0 Nylon. The pneumatic tourniquet was deflated (total tourniquet time was 21 minutes), and there was immediate return of warmth and perfusion to the foot and to all toes on the foot with normal temperature gradient and CFT < 2 seconds to all toes. Hemostasis was achieved. A dressing was applied which consisted of Betadine soaked adaptic, 4x4 gauze, Kerlix and ashok bandage, being sure to apply it not to tight. The patient tolerated the above operative procedure well at the anesthesia well with no complication. The patient was transported to the recovery room with vital signs stable and in good condition. Post operative orders were placed. Pos t operative instructions were reviewed and dispensed verbal and written. No weightbearing left foot, keep left foot elevated for at least 50 minutes of every hour, keep dressing clean, dry and intact. Prescription for [place] 1-2 tabs PO q 6 hours prn pain was prescribed. She is to follow up with me within 1 week or sooner if needed. Grafts/Implants Used: None - Complications None
[2018-07-04 08:20] VITALS: BP 118/73; BP 123/77; PULSE 68; RESP 16; O2SAT 99
[2018-07-04 08:26] VITALS: BP 118/73; BP 125/76; PULSE 71; RESP 16; TEMP 36.6; O2SAT 99
[2018-07-04 09:36] VITALS: BP 118/73; BP 122/67; PULSE 76; RESP 16; TEMP 36.8; O2SAT 95
--- OUTSIDE RECORDS SUMMARY | 2018-09-07 13:57 | XMS RPT_ITS ---
:1965 Author Organization OHIP Care Team Providers Name Role Phone DAPHNEY RIBEIRO ESTRADA A Referring Unavailable HERLINDA YANEZ (TRANSIT POLICE OFFICER) Attending Unavailable TIEN MENDIETA (PA) Referring Unavailable VELMA PEDRO Admitting Unavailable VELMA PEDRO Attending Unavailable CEBUL III, ESTRADA A Referring Unavailable CEBUL III, ESTRADA A Attending Unavailable CEBUL III, ESTRADA A Referring Unavailable CEBUL III, ESTRADA A Referring Unavailable Michael Boyle Attending Unavailable Michael Boyle Referring Unavailable Hieu Farris Primary Care Unavailable Hieu Farris Attending Unavailable Hieu Farris Primary Care Unavailable Palomo Sanford D.O. Attending Unavailable Betsyl Estrada RIBEIRO Referring Unavailable Betsyl Estrada RIBEIRO Primary Care Unavailable Hieu Farris Attending Unavailable Betsyl QUINTIN, Estrada Primary Care Unavailable Palomo Brown, D.O. 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 / Hospital M72.2(ICD-10) Repository 05/09/2018 Unknown M77.32 - Calcaneal [place], Active [place] spur, left foot / [facility] M77.32(ICD-10) Hospital Repository 07/22/2017 Active Encounter for WILLIS, Active [facility] screening for VELMA T [facility] malignant neoplasm Repository of colon / Z12.11(ICD-10) 08/07/2017 Active Unspecified injury NA Active [facility] of right lower [facility] leg, initial Repository encounter / S89.91XA(ICD-10) PROCEDURES PROCEDURES No Procedure Records FoundRESULTS RESULTS OPERATIVE REPORT Observed: 07/04/2018 Status: F Source: [place] 8:16 AM [facility] REPOSITORY [facility] Medical Records Department [address] [place] [address] Operative Report 07/04/18 0813 MR#: [id number] Acct: [id number] Name: JACKIE GUAMAN Rep #: [id number] : 1965 53 From: Michael Boyle DPM PCP: Hieu Farris MD Status: REG [facility] Location: [place] [address] Report of Operation Date of Procedure: 07/04/18 Pre-Operative Diagnosis: Plantar fascitis and infracalcaneal spur, left foot Post-Operative Diagnosis: Same Surgery/Procedure Performed:: Plantar fasciotomy with resection of infracalcaneal spur, left lye treater: yes - Dr. Elba Garcia Type of [...] dressing clean, dry and intact. Prescription for Minden 1-2 tabs PO q 6 hours prn pain was prescribed. She is to follow up with me within 1 week or sooner if needed. Grafts/Implants Used: None - Complications None 07/04/18815 <Electronically signed by Michael Boyle DPM> Date Michael Boyle DPM CC: Hieu Farris MD; Michael Boyle DPM Signed DISCHARGE INSTRUCTION Observed: 07/04/2018 Status: F Source: [place] 8:11 AM [facility] REPOSITORY [facility] Medical Records Department [address] [place] [address] Instructions for Home/Discharge Instructions 07/04/18809 MR#: [id number] Acct: [id number] Name: JACKIE GUAMAN Rep #: [id number] : 1965 53 From: Michael Boyle DPM PCP: Hieu Farris MD Status: REG SDC Discharge Diet: Light diet - advance as [...] Vitamin] 1 each PO DAILY 06/27/18 Hydrocodone/Acetaminophen [Minden 5-325 Tablet] 1 ea PO Q6H PRN PRN #30 tab 07/04/18 The following prescriptions were given: Hydrocodone/Acetaminophen [Minden 5-325 Tablet] 1 ea PO Q6H PRN [...] 2 VIEWS Observed: 07/04/2018 Status: F Source: [place] 5:13 AM [facility] REPOSITORY [facility] Imaging Services [address] [place] [address] Foot 2 Views MR#: [id number] Acct: [id number] Name: JACKIE GUAMAN Margarito Rep #: [id number] : 1965 F 53 From: Julianna Walton MD PCP: Hieu Farris MD Status: [facility] Study: Foot 2 Views Date of Exam: 07/04/18 Exam# [id number] Ordering Dr: Michael Boyle DPM STUDY: X-RAY [...] CC: Hieu Farris MD; Michael Boyle DPM Program Writer: Signed BASIC METABOLIC Collected: 06/23/2018 Status: F Source: [place] PROFILE (BMP) 11:53 AM [facility] REPOSITORY TYPE CODE TESTS RESULT OUT OF [...] 9 Performed By: #### L500.2500, L100.0500 #### [facility] [address] [place], [address] CBC-COMPLETE BLOOD CNT Collected: 06/23/2018 Status: F Source: [place] NO DIFF 11:53 AM [facility] REPOSITORY TYPE CODE TESTS RESULT OUT OF [...] 10.0 Performed By: #### L500.2500, L100.0500 #### [facility] [address] [place], [address] LOWER EXT/NO JT/W/O Observed: 05/28/2018 Status: F Source: [place] 11:22 AM [facility] REPOSITORY [facility] Imaging Services [address] [place] [address] Lower Ext/No Jt/w/o MR#: [id number] Acct: [id number] Name: JACKIE GUAMAN Rep #: [id number] : 1965 F 53 From: Severiano Baugh MD PCP: Hieu Farris MD Status: REG CLI Study: Lower Ext/No Jt/w/o Date of Exam: 05/28/18 Exam# [id number] Ordering Dr: Michael Boyle DPSandro STUDY: MRI [...] CC: Hieu Farris MD; Michael Boyle DPM Program Writer: Signed INITAL EVALUATION (1) Observed: 04/28/2018 Status: F Source: [place] - PT 2:58 PM [facility] REPOSITORY [facility] Physical Therapy [facility] [address] [place] [address] Fax REHABILITATION SERVICES INITIAL EVALUATION MR#: [id number] Acct: [id number] Name: JACKIE GUAMAN Rep #: [id number] : 1965 53 From: Shaila Valente DPT Referring Dr.: Michael Boyle DPM Status: REG RCR Insurance: [employer] SELF PAY INSURANCE Patient's Visit Information JACKIE [...] the left. [facility] and has been treated for like [...] to be FAXED BACK to us at [phone] for Medicare purposes. Please let me know if there are questions or concerns regarding this plan of care. Physician Signature: Date: <Electronically signed by Shaila Valente DPHilaria> 04/28/18 1458 CC: Hieu Farris MD; Michael Boyle DPM ELR Signed For Medicare only, by signing this I certify the plan of care. Physicians Signature Date PULMONARY VISIT REPORT Observed: 03/18/2018 Status: F Source: [place] 10:21 AM [facility] REPOSITORY [facility] [place] [address] [place] [address] OFFICE VISIT Date of Service: 03/18/18 MR#: [id number] Acct: [id number] Name: JACKIE GUAMAN Rep #: [id number] : 1965 Provider: Palomo Sanford D.O. Age/Sex: 53/F [facility] Status: Signed Assessment AND Plan 1. 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 [place], [place], [id number] PROGRESS Observed: 09/16/2017 Status: COMPLETED Source: [place] 1:19 PM [facility] REPOSITORY HNO ID: [id number] Author: Raya Bloom LPN Service: (none) Author [...] LPN CNNURSE Observed: 09/16/2017 Status: COMPLETED Source: [place] 1:00 PM [facility] REPOSITORY Nurse Visit (FAMPWS) JACKIE GUAMAN ([id number]) 1965 F Date Time Provider Department 09/16/17 1:00 PM [place] [facility] During your visit today, we recorded the [...] Bloom LPN Referring Provider: ESTRADA CASTILLO III [[id number]] Allergies As of Date: 09/16/2017 Noted Allergy Reaction ALEVE (NAPROXEN SODIUM) 08/27/2008 4 - Hives Comments: passed out SULFA (SULFONAMIDE ANTIBIOTICS) 05/28/2005 Date Reviewed: 08/26/2017 Reviewed by: Audrey ([facility]) AUDRA Arceo - Fully Assessed Reason for [...] 09/16/17 PROGRESS Observed: 08/26/2017 Status: COMPLETED Source: [place] 1:59 PM [facility] REPOSITORY HNO ID: [id number] Author: Estrada Castillo III Service: (none) Author Type: Physician Type: [...] MD CNOV Observed: 08/26/2017 Status: COMPLETED Source: [place] 1:40 PM [facility] REPOSITORY Office Visit (FAMPWS) JACKIE GUAMAN ([id number]) 1965 F Date Time Provider Department 08/26/17 [...] III MD Referring Provider: ESTRADA CASTILLO III [[id number]] Allergies As of Date: 08/26/2017 Noted Allergy Reaction ALEVE (NAPROXEN SODIUM) 08/27/2008 4 - Hives Comments: passed out SULFA (SULFONAMIDE ANTIBIOTICS) 05/28/2005 Date Reviewed: 08/26/2017 Reviewed by: Audrey ([facility]) AUDRA Arceo - Fully Assessed Reason for [...] VISIT REPORT Observed: 08/23/2017 Status: F Source: [place] 10:[address] [facility] Pulmonary Medicine of [address] [place] [address] OFFICE VISIT Date of Service: 08/23/17 MR#: [id number] Acct: [id number] Name: JACKIE GUAMAN Rep #: [id number] : 1965 Provider: Palomo Sanford D.O. Age/Sex: 52/F Location: [facility] Status: Signed Assessment AND Plan 1. ERNESTINA [...] currently utilizing a nasal mask provided through [employer]. She also reports overall stability in her [...] lb Intake Visit Reasons: 2 M FU WILLIAM Vendor: [employer] Allergies naproxen [From Aleve] Adverse Reaction (Intermediate, [...] NURSING PROG Observed: 08/16/2017 Status: COMPLETED Source: [place] 12:50 PM [facility] REPOSITORY HNO ID: [id number] Author: Brooke Rodriguez RN Service: (none) Author Type: Registered Nurse Type: Nursing Progress Note Filed: 08/16/2017 1:01 PM Note Text: Patient did not experience a fall prior to discharge. Patient did not experience a burn prior to discharge. Brooke Rodriguez RN PT ED Observed: 08/16/2017 Status: COMPLETED Source: [place] 12:48 PM [facility] REPOSITORY HNO ID: [id number] Author: Brooke Rodriguez RN Service: (none) Author [...] NURSING PROG Observed: 08/16/2017 Status: COMPLETED Source: [place] 12:10 PM [facility] REPOSITORY HNO ID: [id number] Author: Brooke Rodriguez RN Service: (none) Author [...] NURSING PROG Observed: 08/16/2017 Status: COMPLETED Source: [place] 12:08 PM [facility] REPOSITORY HNO ID: [id number] Author: Jasmina MercadoRnArelis Chaves RN Service: (none) Author Type: Registered Nurse Type: Nursing Progress Note Filed: 08/16/2017 12:08 PM Note Text: Patient did not experience a fall within the Intraoperative area. Patient did not experience a burn within the Intraoperative area. Jasmina Chaves RN NURSING PROG Observed: 08/16/2017 Status: COMPLETED Source: [place] 11:36 AM [facility] REPOSITORY HNO ID: [id number] Author: Светлана Jackson RN Service: (none) Author Type: Registered Nurse [...] PT ED Observed: 08/16/2017 Status: COMPLETED Source: [place] 10:33 AM [facility] REPOSITORY HNO ID: [id number] Author: Ade MercadoRnArelis Herman RN Service: (none) [...] 4V AP/PA Observed: 08/07/2017 Status: F Source: [place] BOTH+LAT/APPLE RT 12:00 PM [facility] REPOSITORY * * *Final Report* * * [...] significant degenerative or arthritic change. IMPRESSION: Negative. Program Writer: PSCB Transcribe Date/Time: Aug 07 2017 12:13P Dictated by : JOCELYNE RODRIGUEZ MD This examination was interpreted and the report reviewed and electronically signed by: JOCELYNE RODRIGUEZ MD on Aug 07 2017 12:14PM EST [id number] Observed: 08/07/2017 Status: COMPLETED Source: [place] 11:50 AM [facility] REPOSITORY HNO ID: [id number] Author: Sandra Piemntel (Rt) Mario Alberto Rg Service: (none) Author Type: Medical Translator Type: Progress Notes Filed: 08/07/2017 12:01 PM [...] AM PROGRESS Observed: 08/07/2017 Status: COMPLETED Source: [place] 11:34 AM [facility] REPOSITORY HNO ID: [id number] Author: Tien Mendieta (Pa) Service: (none) Author Type: Physician Apparel Manager Type: Progress Notes Filed: 08/07/2017 12:39 PM Note Text: Subjective HPI Pt presents with a right knee injury x 3 days. She was walking on some rocks along [place] and they were icy and she fell [...] HISTORY PHYSICAL Observed: 07/22/2017 Status: COMPLETED Source: [place] 2:06 PM [facility] REPOSITORY HNO ID: [id number] Author: Herlinda Yanez Service: (none) Author Type: [...] has not been melena. No abdominal pain. WEBSITE PROGRAMMER: Negative for abnormal vaginal bleeding, abnormal vaginal [...] patient, discussion and counseling. Herlinda Yanez RN [facility] Observed: 07/22/2017 Status: COMPLETED Source: [place] 12:00 AM [facility] REPOSITORY Patient:Jackie Guaman MRN: <[id number]> Height:5' 4(1.626 m) Weight:248 lb 6.4 oz [...] following basenames: K,HCT Progress Notes ([facility]): RT Mani, Tech 08/07/2017 12:01 PM [...] August 07, 2017 11:50 AM Progress Notes ([facility]): Tien Mendieta PA-C 08/07/2017 12:39 PM Signed Subjective HPI Pt presents with a right knee injury x 3 days. She was walking on some rocks along [facility] and they were icy and she fell [...] PA-C PROGRESS Observed: 07/16/2017 Status: COMPLETED Source: [place] 9:25 AM [facility] REPOSITORY HNO ID: [id number] Author: Raya Bloom LPN Service: (none) Author [...] LPN CNNURSE Observed: 07/16/2017 Status: COMPLETED Source: [place] 9:15 AM [facility] REPOSITORY Nurse Visit (FAMPWS) JACKIE GUAMAN ([id number]) 1965 F Date Time Provider Department 07/16/17 9:15 AM [place] NURSE [facility] During your visit today, we [...] Bloom LPN Referring Provider: ESTRADA CASTILLO III [[id number]] Allergies As of Date: 07/16/2017 Noted Allergy Reaction ALEVE (NAPROXEN SODIUM) 08/27/2008 4 - Hives Comments: passed out SULFA (SULFONAMIDE ANTIBIOTICS) 05/28/2005 Date Reviewed: 07/02/2017 Reviewed by: Audrey ([facility]) AUDRA Arceo - Fully Assessed Reason for [...] Status:Closed by RAYA BLOOM LPN on 07/16/17 ALLERGIES ALLERGIES DATE TYPE / CODE NAME / CODE REACTION SEVERITY SOURCE 07/04/2018 Drug naproxen/W86699 / [place] [facility] Allergy/416 2380(RXNORM) [facility] 278998(SNOM Repository ED CT) 07/04/2018 Drug sulfadiazine/F0 / [place] [facility] Allergy/416 88377294([facility] 136024(SNOM ) Repository ED CT) 08/27/2008 DRUG NAPROXEN SODIUM HIVES [facility] INGREDI/[address] [place] 135517(SNOM Repository ED CT) 05/28/2005 Drug SULFA [facility] Class/07682 (SULFONAMIDE [address] [place] 1003(SNOMED ANTIBIOTICS) Repository CT) ENCOUNTERS ENCOUNTERS ADMIT/DISCHARGE ACCOUNT ADMITTING ENCOUNTER LOCATION SOURCE NUMBER CLASS 07/04/2018/07/04/19 [id number] Ambulatory [facility] [place] ing:SDCRoom: Repository AC03 06/23/2018 [id number] Ambulatory [facility] ing:MFPLAB Repository 05/28/2018 [id number] [facility] ing:MRI Repository 05/09/2018 [id number] [facility] ing:PT Repository 03/18/2018/03/18/20 [id number] Ambulatory BMSBuilding:B [place] [address] [facility] Hospital Repository 10/28/2017 [id number] Ambulatory [facility] ing:MFPLAB Repository 09/16/2017/09/18/19 [id number] Ambulatory [address] Repository 08/26/2017/08/28/19 [id number] Ambulatory [address] Repository 08/23/2017/08/24/19 [id number] Ambulatory BMSBuilding:B [place] [address] [facility] Hospital Repository 08/16/2017/08/17/19 [id number] [place], Ambulatory [address] Repository 08/07/2017/08/07/19 [id number] Ambulatory [address] Repository 08/07/2017/08/08/19 [id number] Ambulatory [address] Repository 07/22/2017/07/23/19 [id number] Ambulatory [address] Repository 07/16/2017/07/16/19 [id number] Ambulatory [address] Repository PAYERS PAYERS ENCOUNTER GUARANTOR PAYER SUBSCRIBER SOURCE 07/04/2018 LOLA Steven Primary LOLA A [facility] [id number] [facility] NADELINDOB: [facility] Number: [id number], [place] [id number] Repository [address]Stk: [address] Date:4749-71-99[phone] (BF) [address], [place] [address]EQ: 07/04/2018 Secondary NOT GIVENUNK [place] Insurance:SELF PAY [facility] Number: Effective Repository Date:2018-05-20 06/23/2018 JACKIE Pimentel Primary LOLA Steven [place] [id number] Insurance:AULTCAREPol NADELINDOB: Community [place] icy Number: [id number], [place] [id number] Repository [address]Oku: ([phone]) Date:5590-62-17BJ [phone] () [place], [place] [address]HS: 06/23/2018 Secondary NOT GIVENUNK [place] Insurance:SELF PAY [facility]: Effective Repository Date:2018-06-23 05/28/2018 JACKIE Pimentel Primary LOLA Steven [place] [id number] Insurance:AULTCAREPol NADELINDOB: [facility] CRATER ic Number: [id number], [place] [id number] Repository [address]Cfq: ([phone]) Date:2213-64-76YB [phone] () [address], [place] [address]US: 05/28/2018 Secondary NOT GIVENUNK [place] Insurance:SELF PAY [facility] Number: Effective Repository Date:2018-05-21 05/09/2018 LOLA Steven Primary LOLA Steven [place] [id number] Insurance:AULTCAREPol NADELINDOB: [facility] Crater icy Number: [id number], [place] [id number] Repository [address]Plu: ([phone]) Date:8038-76-26KI [phone] () [address], [place] [address]HA: 05/09/2018 Secondary NOT GIVENUNK [place] Insurance:SELF PAY [facility] Number: Effective Repository Date:2018-04-23 03/18/2018 LOLA Steven Primary LOLA Steven [place] [id number] Insurance:AULTCAREPol NadelinDOB: [facility] Crater icy Number: [id number], [place] [id number] Repository [address]Uaq: ([phone]) Date:8184-17-90BU [phone] () [address], [place] [address]HP: 03/18/2018 Secondary NOT GIVENUNK [place] Insurance:SELF PAY [facility] Number: Effective Repository Date:2018-03-11 10/28/2017 LOLA Steven Primary LOLA Stone [id number] Insurance:LTCAREMclaren [facility]ape[facility] RegionDOB: Community [place] icy Number: [id number], [place] [id number] Repository [address]Pty: Date:7460-05-63LY [phone] [facility] () [address]YS: 10/28/2017 Secondary NOT GIVENUNK [place] Insurance:SELF PAY [facility] Number: Effective Repository Date:2017-10-28 08/23/2017 LOLA A Primary LOLA [place] [id number] Insurance:[place] ZIONCAREMclaren [place] RegionDOB: Community [place] icy Number: [id number], [place] [id number] Repository [address]Smx: Date:9635-30-55YC [phone] [address], [place] -3 () [address]RN: 08/23/2017 Secondary NOT GIVENUNK [place] Insurance:SELF PAY [facility] Number: Effective Repository Date:2017-05-23
== END 2018-07-04 09:46 | disposition home or self-care (01) ==
LOC: SDC 06:01 → AC 06:02
PROVIDERS: Family Provider Family Medicine; PCP Family Medicine; Referring Provider Podiatrist; Visit Provider Podiatrist
PROC: (CPT 28119; principal; 2018-07-04 07:15)
DX: M72.2 Plantar fascial fibromatosis (principal); M77.32 Calcaneal spur, left foot; I10 Essential (primary) hypertension; Z78.0 Asymptomatic menopausal state; Z79.899 Other long term (current) drug therapy; Z87.891 Personal history of nicotine dependence
CPT/HCPCS: 01480; 28119; 73620; 76000; J7120; J2405

== ENCOUNTER → 2018-07-31 08:46 | Outpatient (CLI) | payer OTHER, SELFPAY ==
[2018-07-04 06:22] VITALS: BMI 39.5
--- NOTE | 2018-07-31 08:48 | BI_ITS ---
MAMMOGRAPHY - BILATERAL SCREENING REASON FOR EXAM: Female, 53 years old. Routine annual screening examination. PERTINENT HISTORY: Non-contributory. TECHNIQUE: Digital bilateral breast re (3D mammographic acquisition) in the CC and MLO projections. 2-D mediolateral oblique (MLO) and craniocaudad (CC) views of both breasts were obtained. CAD: Full Field Digital Mammography with Computer Added Detection was performed. COMPARISON: Comparison is made to prior outside examination dated February 08, 2017. FINDINGS: Breast Composition: There are scattered areas of fibroglandular density. There are no dominant masses or suspicious calcifications. Stable small bilateral axillary lymph nodes. No other significant abnormalities are identified. There has been no significant change since the prior study. BI/SCREENING MAMM (CAD), BILAT IMPRESSION: Stable bilateral screening mammogram. Yearly follow-up mammogram recommended. (A) ASSESSMENT CATEGORY: BIRADS Category 2: Benign. A letter regarding these results will be sent to the patient by the facility within 30 days. Approximately 10% of breast cancers are not detected by mammography. A normal mammogram should not delay biopsy of a clinically suspicious abnormality. [id number] Electronically Signed: Rashawn Esposito MD at 12:26 EST , Service support ,
== END ==
PROVIDERS: Family Provider Family Medicine; PCP Family Medicine; Referring Provider Obstetrics & Gynecology; Visit Provider Obstetrics & Gynecology
DX: Z12.31 Encounter for screening mammogram for malignant neoplasm of breast (principal)
CPT/HCPCS: 77063; 77067

== ENCOUNTER 2018-10-10 09:30 | Outpatient (RCR) | payer OTHER, SELFPAY ==
--- NOTE | 2018-08-25 13:53 | HP.PTEVAL ---
Patient's Visit Information RAZA GUAMAN is a 53 year old F referred to Physical Therapy by Michael Boyle DPM with a diagnosis of s/p Left plantar fasciotomy and bone spur removeal 07/04/18. Date of Evaluation: 08/25/18 Physical Therapist: Shaila Valente DPT - Visit Plan Frequency: 1x/Week Duration: 6 Weeks Plan: HEP- will reassess in 2 weeks and progress hep as needed - Subjective Findings: Left plantar fasciotomy and spur resection 07/05/[address] Boyle. NWB 1 week and in the boot for 5 weeks- WBAT. Took the boot off 10 days ago. The foot is sore when she is up and on it. The pain is located along the bottom of the foot, heel and then the outside of the ankle near the ankle bone. Radiates to the knee- the toes get numb. Describes the pain as dull and achy. Worst: 4/10 Agg: being up on it, walking Best: 0/10 Eases: getting off of it. Maybe 10 min and then pain goes away. Sleep: not disturbed. Wears tennis shoes but does not wear orthotics. 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 PMHx: hysterectomy Meds: lisinopril, spornolactone. No MRI/X-rays since surgery- no injections since surgery. - Objective Posture: good throughout. Gait: slight deviation- decrease stance on the left LE with poor heel/toe pattern. Palpation: mild tenderness through the heel of the foot. HR/TR: able with UE A and reports discomfort TR>HR. SLS: 3 seconds then LOB but will SLS for 30 sec with UE on wall. ROM: WFL in all planes. Flex: Gastroc: mod, Soleus: mild. Strength: Ankle: 4+/5, Knee: 5/5, Hip: 4/5 throughout Core: fair - Goals Goal 1:: Patient will be I with HEP Goal Time Frame: 4-6 Weeks Goal 2:: Patient will demo 5/5 strength in ankle Goal Time Frame: 4-6 Weeks Goal 3:: Patient will ambulate >300 feet with a normalized pattern Goal Time Frame: 4-6 Weeks Goal 4:: Patient will SLS for 15 seconds without UE A Goal Time Frame: 4-6 Weeks - Rehabilitation Potential Physical Therapy Diagnosis: Patient presents with hypomobility- she has decreased strength and muscular endurance leading to decreased balance and poor gait pattern. Rehabilitation Potential: Good - Anticipated Interventions Patient/Client Instruction: Educate patient on: Benefits of Fitness Program Therapeutic Exercise to Include: Strength training, Endurance training, Balance training, Body mechanics, Postural training, Flexibilty training, Gait and locomotor training, Passive ROM, Active ROM For the Purpose of:: To improve muscle performance and motor function Thank you for the opportunity to evaluate your patient. For Medicare and Medicare HMO plans, please review the plan of care and approve it. It will need to be FAXED BACK to us at [phone] for Medicare purposes. For Medicare only, by signing this I certify the plan of care. Please let me know if there are questions or concerns regarding this plan of care. Physician Signature: Date:
--- NOTE | 2018-10-16 13:26 | HP.PTDCSUM ---
HP - PT D/C Summary It has been my pleasure to treat RAZA GUAMAN under orders from Michael Boyle DPM, for the diagnosis of s/p Left plantar fasciotomy and bone spur removeal 07/04/18 for a total of 8 visit(s). Discharge Date: Please see the following information for a summary of their discharge status. - Subjective Subjective: Patient reports that she is 85% back to normal the cortisone injection really helped. She has more neck/shoulder pain now. Cant stand for more than 3-4 hours before her heel hurts - Overall Improvement % Improvement: 85 - Objective Objective/Function: Does not feel at this time she needs to continue PT- will do HEP and call if questions - Goals Goal 1:: Patient will be I with HEP Goal 2:: Patient will demo 5/5 strength in ankle Goal 3:: Patient will ambulate >300 feet with a normalized pattern Goal 4:: Patient will SLS for 15 seconds without UE A - Plan Plan: Hold - D/C Information If there are questions or concerns regarding this patient's physical therapy, please feel free to call me at [phone]. Thank you for the referral of this patient. Sincerely, CHANA BuchananT
== END 2018-10-10 19:00 | disposition home or self-care (01) ==
LOC: PT 09:30
PROVIDERS: Family Provider Family Medicine; PCP Family Medicine; Referring Provider Podiatrist; Visit Provider Podiatrist
DX: Z98.890 Other specified postprocedural states (principal)
CPT/HCPCS: 97035; 97110; 97140; 97161; 97530

== ENCOUNTER → 2018-11-05 12:30 | Outpatient (CLI) | payer OTHER, SELFPAY ==
--- NOTE | 2018-11-05 12:34 | RAD_ITS ---
STUDY: X-RAY - CERVICAL SPINE REASON FOR EXAM: Female, 53 years old. Neck pain TECHNIQUE: 5 view(s) of the cervical spine were obtained. COMPARISON: None FINDINGS: Normal anterior atlantoaxial articulation. Normal odontoid process. There is straightening of the normal cervical lordosis. Normal vertebral bodies and endplates. There is multi-level degenerative disc disease with multilevel disc space narrowing. Normal visualized intervertebral neuroforamina. The soft tissue structures are unremarkable. RAD/Cerv Spine 4 or 5 Views IMPRESSION: There is multi-level degenerative disc disease with multilevel disc space narrowing. Electronically Signed: Yenny Guzman, at 7:00 EDT Tel , Service support ,
== END ==
PROVIDERS: Family Provider Family Medicine; PCP Family Medicine; Referring Provider Family Medicine; Visit Provider Family Medicine
DX: M54.2 Cervicalgia (principal)
CPT/HCPCS: 72050

== ENCOUNTER 2018-11-11 12:30 | Outpatient (RCR) | payer OTHER, SELFPAY ==
--- NOTE | 2018-10-20 11:30 | HP.PTEVAL_ITS ---
Patient's Visit Information RAZA GUAMAN is a 53 year old F referred to Physical Therapy by LEIA Mendieta with a diagnosis of POSTERIOR NECK AND LEFT SHOULDER PAIN. Date of Evaluation: 10/20/18 Physical Therapist: Bebe Corbett PT, Cert MDT - Visit Plan Frequency: 2-3x /Week Duration: 4-6 Weeks Plan: NECK AND LEFT SHOULDER US. CERVICAL TX. POSTURE CORRECTION/STRENGTHENING, INSTRUCTION IN APPROPRIATE BODY MECHANICS AND ACTIVITY MODIFICATIONS. PO UE ROM, STRETCHING AND STRENGTHENING. HEP INSTRUCTION. 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 Disability: NO. Present symptoms: MOSTLY IN THE LEFT SHOULDER AND PULLS AT THE NECK. HEADACHES. INTERMITTENT LEFT ARM AND FOREARM NUMBNESS AND TINGLING. Present since: 25 YEARS AGO. FLARED UP ABOUT A MONTH AGO. Pain Scale: Worst - 7/10 Least - 2/10. Currently: 09/24. Commenced as a result of: NO APPARENT REASON. RECOVERY FROM FOOT SURGERY. Symptoms at onset: LEFT SHOULDER. Worse: LYING DOWN AND TRYING TO SLEEP, ANYTHING THAT USES LEFT SHOULER, BARN CHORES, CLEANING RENTALS, GARDENING. SITTING. Better: IBUPROFEN, TRYING TO CORRECT POSTURE, PREDNISONE, MASSAGE HELPED A LITTLE BIT BU T EXTREMELY PAINFUL. Disturbed sleep: YES. Previous history/Previous treatment: MASSAGE. ABOUT 20 YEARS AGO FELT LIKE SHE SAT UP IN BED AND WHOLE NECK DISLOCATED BECAUSE COULDN'T MOVE HER HEAD. DID 6-8 WEEKS OF PHYSICAL THERAPY. RECENTLY IT GOT BAD AGAIN BUT NOT THAT BAD. WENT TO [facility] ONE VISIT BUT DOENS'T LIKE IT (ABOUT 2-3 YEARS AGO) AND DOENS'T WANT TO GO BACK. THIS EPISODE - IBUPROFEN, STARTED PREDNISONE 5 DAYS AGO AND HAS ABOUT 8 DAYS TO GO. REPORTS THE PREDNISONE HAS HELPED A LOT. Dizziness: NO. Tinnitis: NO. Nausea: NO. Shortness of Breath: NO. Difficulty Swollowing: NO. Gait: FOOT SURGERY FOUR MONTHS AGO - LEFT FOOT - BONE SPUR REMOVAL FOR PLANTAR FASCITIS. NO FALLS. NO ASSISTIVE DEVICES. DOESN'T FEEL LIKE SHE IS EVEN LIMPING ANYMORE. Accidents: NO. Unexplained weight loss: NO. Imaging: NO RECENT NECK OR LEFT SHOULDER IMAGAING. PMH/Recent major surgery: LEFT FOOT - SEE ABOVE. HTN. CHRONIC LOW BACK PAIN. RIGHT HIP PAIN. PLOF (Prior Level of Function): PATIENT REPORTS FULL LEFT SHOULDER ROM BEFORE THIS FLARE UP ABOUT A MONTH AGO. WAS ABLE TO REACH UP, LIFT AND USE LEFT ARM BETTER BEFORE A MONTH AGO. - Objective Sitting Posture/Standing Posture: POOR. FORWARD HEAD. ROUNDED SHOULDERS. NO TORTICOLLIS. Active Correction of posture: WORSE. Other Observations: INDEP GAIT AND TRANSFERS. Motor deficit: RIGHT UE 5/5 WITH MMT'ING AND RIGHT LEAVE SPECIALIST 70 LBS - RIGHT HANDED. LEFT SHOULDER 4/5, ELBOW FLEX 4/5, ELBOW EXT 4/5 LEAVE SPECIALIST 60 LBS. Sensory deficit: PO UE LIGHT TOUCH SENSATION INTACT AND SYMMETRICAL. ROM deficit: PO UE'S WFL BUT LEFT SHOULDER IS UNCOMFORTABLE WITH TESTING. Reflexes: 2/3 PO UES. Dural Signs: POSITIVE LUE. Cervical Mvmt Loss: Flex: NIL. Pro: NIL. Ext: MOD. Ret: MOD. RSB: MOD. LSB: MOD. R Rot: MIN. L Rot: MOD. Postural strength: POOR. Palpation: CERVICAL SPINE AND LEFT SHOULDER ARE TENDER WITH TESTING BUT ESPECIALLY THE CERVICAL SPINE. THORACIC SPINE IS NOT TENDER. PO UPPER TRAP MILD TO MODERATE TIGHTNESS. OTHER: SEATED CERVICAL DISTRACTION TESTING - PATIENT REPORTS A LITTLE BIT OF DECREASED NECK AND LEFT UE SX'S. - Goals Goal 1:: DECREASE C/O NECK AND LEFT UE SX'S (SHOULDER, ARM, AND FOREARM) Goal Time Frame: 4-6 Weeks Goal 2:: IMPROVE SITTING, REACHING, LIFTING, READING, WORK, DIRIVNG, RECREATIONAL AND SLEEP FUNCTION. Goal Time Frame: 4-6 Weeks Goal 3:: INSTRUCT IN PROPHYLAXIS Goal Time Frame: 4-6 Weeks - Rehabilitation Potential Rehabilitation Potential: Fair - Anticipated Interventions Patient/Client Instruction: Educate patient on: Condition, Plan of Care, Risk Factors, Benefits of Fitness Program For the Purpose of:: To improve self management Therapeutic Exercise to Include: Strength training, Body mechanics, Postural training, Passive ROM, Active ROM, Scapular Strength/Stabilization For the Purpose of:: To decrease pain, To increase ROM, To improve muscle performance and motor function, To increase tolerance to activity/condition/position, To improve ability of physical actions for home/community/work/leisure TENS: Yes IF ES: Yes Cryotherapy (ice pack, ice massage): Yes Thermo therapy (hot pack): Yes Ultrasound (thermal/non thermal): Yes Intermittent cervical traction: Yes For the Purpose of:: To decrease pain, To decrease swelling/inflammation, To increase ROM, To improve nutrient delivery to tissue Thank you for the opportunity to evaluate your patient. For Medicare and Medicare HMO plans, please review the plan of care and approve it. It will need to be FAXED BACK to us at [phone] for Medicare purposes. For Medicare only, by signing this I certify the plan of care. Please let me know if there are questions or concerns regarding this plan of care. Physician Signature: Date:
--- NOTE | 2018-12-03 11:30 | HP.PT.NRP ---
HP - Discharge Summary (1) - Patient Information RAZA GUAMAN was seen in my office for initial evaluation on 10/20/18. The following Plan of Care was established for this patient: Initial Frequency: 2-3x /Week Initial Duration: 4-6 Weeks - Anticipated Interventions Patient/Client Instruction: Educate patient on: Condition, Plan of Care, Risk Factors, Benefits of Fitness Program For the Purpose of:: To improve self management Therapeutic Exercise to Include: Strength training, Body mechanics, Postural training, Passive ROM, Active ROM, Scapular Strength/Stabilization For the Purpose of:: To decrease pain, To increase ROM, To improve muscle performance and motor function, To increase tolerance to activity/condition/position, To improve ability of physical actions for home/community/work/leisure TENS: Yes IF ES: Yes Cryotherapy (ice pack, ice massage): Yes Thermo therapy (hot pack): Yes Ultrasound (thermal/non thermal): Yes Intermittent cervical traction: Yes For the Purpose of:: To decrease pain, To decrease swelling/inflammation, To increase ROM, To improve nutrient delivery to tissue This patient was last seen in our office . Pertinent comments regarding their Physical therapy will appear below: This patient has not returned to Physical Therapy and is appropriate to return to MD for further follow-up as needed. At this point I will be discontinuing this patient from physical therapy. I would be happy to see this patient again in the future if found appropriate by the physician. Thank you! Bebe Corbett, PT, Cert MDT
== END 2018-11-11 19:00 | disposition home or self-care (01) ==
LOC: PT 12:30
PROVIDERS: Family Provider Family Medicine; PCP Family Medicine; Referring Provider Nurse Practitioner Family; Visit Provider Nurse Practitioner Family
DX: M54.2 Cervicalgia (principal); M25.512 Pain in left shoulder
CPT/HCPCS: 97012; 97035; 97110; 97140; 97162; 97530

== ENCOUNTER → 2019-04-11 07:04 | Outpatient (CLI) | payer OTHER, SELFPAY ==
[2019-03-18 06:35] VITALS: BMI 39.8
--- NOTE | 2019-04-11 07:07 | CT_ITS ---
STUDY: CT MAXILLOFACIAL SINUSES REASON FOR EXAM: Female, 54 years old. Chronic sinusitis RADIATION DOSAGE (If Supplied By Facility): CTDIvol = ( 33.06 ) mGy, DLP = ( 792.53 ) mGycm TECHNIQUE: The patient was scanned in a multi detector CT scanner. High resolution axial imaging was performed without the administration of intravenous contrast material. Sagittal and coronal images were reconstructed. Individualized dose optimization techniques were used for this CT. COMPARISON: None. FINDINGS: FRONTAL SINUSES: Normal aeration, without mucosal inflammatory disease. ETHMOIDAL SINUSES: Normal aeration, without mucosal inflammatory disease. MAXILLARY SINUSES: Normal aeration, without mucosal inflammatory disease. SPHENOIDAL SINUSES: Normal aeration, without mucosal inflammatory disease. There is patency of the bilateral maxillary infundibuli with normal uncinate processes, ethmoid bullae, and hiatus semilunaris. Normal bilateral middle turbinates. Normal bilateral inferior turbinates. Normal midline nasal septum. There is patency of the bilateral nasal airways. The visualized osseous structures are normal. The visualized bilateral orbital contents are normal. CT/Sinus/Facial Bone IMPRESSION: Normal CT examination of the maxillofacial sinuses. Electronically Signed: Kal Mi MD (Brooks) at 14:29 EDT , Service support ,
== END ==
PROVIDERS: Family Provider Family Medicine; PCP Family Medicine; Referring Provider Otolaryngology; Visit Provider Otolaryngology
DX: J32.9 Chronic sinusitis, unspecified (principal)
CPT/HCPCS: 70486

== ENCOUNTER → 2019-08-31 15:02 | Outpatient (CLI) | payer OTHER, SELFPAY ==
[2019-03-18 06:35] VITALS: BMI 39.8
--- NOTE | 2019-08-31 15:11 | BI_ITS ---
MAMMOGRAPHY - BILATERAL SCREENING REASON FOR EXAM: Female, 54 years old. Routine annual screening examination. PERTINENT HISTORY: Non-contributory. TECHNIQUE: Digital bilateral breast benny (3D mammographic acquisition) in the CC and MLO projections. 2-D mediolateral oblique (MLO) and craniocaudad (CC) views of both breasts were obtained. CAD: Full Field Digital Mammography with Computer Added Detection was performed. COMPARISON: Comparison is made with prior examination dated July 31, 2018. FINDINGS: Breast Composition: There are scattered areas of fibroglandular density. There are no dominant masses or suspicious calcifications. Stable benign-appearing bilateral axillary lymph nodes. No other significant abnormalities are identified. There has been no significant change since the prior study. BI/SCREEN MAMM (CAD) W/BENNY BILAT IMPRESSION: Stable bilateral screening mammogram. Yearly follow-up mammogram recommended. (A) ASSESSMENT CATEGORY: BIRADS Category 2: Benign. A letter regarding these results will be sent to the patient by the facility within 30 days. Approximately 10% of breast cancers are not detected by mammography. A normal mammogram should not delay biopsy of a clinically suspicious abnormality. [id number] Electronically Signed: Rashawn Esposito, at 15:50 EDT , Service support ,
== END ==
PROVIDERS: PCP Family Medicine; Referring Provider Obstetrics & Gynecology; Visit Provider Obstetrics & Gynecology
DX: Z12.31 Encounter for screening mammogram for malignant neoplasm of breast (principal)
CPT/HCPCS: 77063; 77067

== ENCOUNTER → 2019-12-17 11:18 | Outpatient (CLI) | payer OTHER, SELFPAY ==
[2019-03-18 06:35] VITALS: BMI 39.8
[2019-12-17 13:30] LABS: Anion Gap 8 (5-15); BUN 18 mg/dL (7-18); BUN/Creat Ratio 18.5 RATIO (10-20); Calcium,Total 9.2 mg/dL (8.5-10.1); Chloride 105 mmol/L (98-107); Cholesterol 240 mg/dL (200); Creatinine, Serum 0.98 mg/dL (0.55-1.02); EST Glomerular Filtration Rate 63 mL/min (>60); Est Glom Filt Rate - Afr Amer 76 mL/min (>60); Glucose 82 mg/dL (74-106); High Density Lipoprotein 68 mg/dL; Potassium 4.1 mmol/L (3.5-5.1); Sodium Level 139 mmol/L (136-145); Triglycerides 103 mg/dL; Very Low Density Lipoprotein 21 mg/dL (5-40)
== END ==
PROVIDERS: PCP Family Medicine; Referring Provider Family Medicine; Visit Provider Family Medicine
DX: I10 Essential (primary) hypertension (principal)
CPT/HCPCS: 36415; 80048; 80061

== ENCOUNTER → 2020-11-07 15:54 | Outpatient (CLI) | payer OTHER, SELFPAY ==
[2020-03-28 14:30] VITALS: BMI 39.4
--- NOTE | 2020-11-07 15:56 | BI_ITS ---
MAMMOGRAPHY - BILATERAL SCREENING REASON FOR EXAM: Female, 55 years old. Routine annual screening examination. PERTINENT HISTORY: Non-contributory. TECHNIQUE: Digital bilateral breast benny (3D mammographic acquisition) in the CC and MLO projections. 2-D mediolateral oblique (MLO) and craniocaudad (CC) views of both breasts were obtained. CAD: Full Field Digital Mammography with Computer Added Detection was performed. COMPARISON: Comparison is made with prior study dated 08/31/2019 and 07/31/2018. FINDINGS: Breast Composition: There are scattered areas of fibroglandular density. There are no dominant masses or suspicious calcifications. Stable benign appearing bilateral axillary lymph nodes. No other significant abnormalities are identified. There has been no significant change since the prior study. BI/SCRN MAMM (CAD)W/BENNY BILAT IMPRESSION: Stable bilateral screening mammogram. Yearly follow-up mammogram recommended. (A) ASSESSMENT CATEGORY: BIRADS Category 2: Benign. A letter regarding these results will be sent to the patient by the facility within 30 days. Approximately 10% of breast cancers are not detected by mammography. A normal mammogram should not delay biopsy of a clinically suspicious abnormality. [id number] Electronically Signed: Rashawn Esposito MD at 8:21 EDT , Service support ,
== END ==
PROVIDERS: PCP Family Medicine; Referring Provider Student in an Organized Health Care Education/Training Program; Visit Provider Student in an Organized Health Care Education/Training Program
DX: Z12.31 Encounter for screening mammogram for malignant neoplasm of breast (principal)
CPT/HCPCS: 77063; 77067

== ENCOUNTER 2021-06-27 08:13 | Outpatient (CLI) | payer OTHER, SELFPAY ==
[2021-06-27 10:23] LABS: Vitamin D,25 Hydroxy 43.8 ng/mL
[2021-06-27 10:29] LABS: Anion Gap 7 (5-15); BUN 18 mg/dL (7-18); BUN/Creat Ratio 18.2 RATIO (10-20); Chloride 104 mmol/L (98-107); Cholesterol 256 mg/dL (200); Creatinine, Serum 0.99 mg/dL (0.55-1.02); EST Glomerular Filtration Rate 61 mL/min (>60); Est Glom Filt Rate - Afr Amer 74 mL/min (>60); Glucose 111 mg/dL (74-106); High Density Lipoprotein 61 mg/dL; Sodium Level 138 mmol/L (136-145); Triglycerides 231 mg/dL; Very Low Density Lipoprotein 46 mg/dL (5-40)
== END 2021-06-27 23:59 | disposition short-term general hospital (02) ==
LOC: MFPLAB 08:14
PROVIDERS: PCP Family Medicine; Referring Provider Family Medicine; Visit Provider Family Medicine
DX: I10 Essential (primary) hypertension (principal); E66.9 Obesity, unspecified; Z13.21 Encounter for screening for nutritional disorder
CPT/HCPCS: 36415; 80048; 80061; 82306; 84443

== ENCOUNTER → 2021-11-09 | Outpatient (CLI) | payer OTHER, SELFPAY ==
--- NOTE | 2021-11-09 10:48 | BI_ITS ---
MAMMOGRAPHY - BILATERAL SCREENING REASON FOR EXAM: Female, 56 years old. Routine annual screening examination. PERTINENT HISTORY: Non-contributory. TECHNIQUE: Digital bilateral breast benny (3D mammographic acquisition) in the CC and MLO projections. 2-D mediolateral oblique (MLO) and craniocaudad (CC) views of both breasts were obtained. CAD: Full Field Digital Mammography with Computer Added Detection was performed. COMPARISON: Screening mammogram from 11/07/2020, 08/31/2019, 07/31/2018. FINDINGS: Breast Composition: There are scattered areas of fibroglandular density. There are no dominant masses or suspicious calcifications. No other significant abnormalities are identified. There has been no significant change since the prior study. BI/SCRN MAMM (CAD)W/BENNY BILAT IMPRESSION: Stable bilateral screening mammogram. Yearly follow-up mammogram recommended. (A) ASSESSMENT CATEGORY: BIRADS Category 1: Negative. A letter regarding these results will be sent to the patient by the facility within 30 days. Approximately 10% of breast cancers are not detected by mammography. A normal mammogram should not delay biopsy of a clinically suspicious abnormality. [id number] Electronically Signed: Rafael Veras, at 17:49 EDT ,
== END | disposition home or self-care (01) ==
LOC: OPBI 10:46
PROVIDERS: PCP Family Medicine; Visit Provider Student in an Organized Health Care Education/Training Program
DX: Z12.31 Encounter for screening mammogram for malignant neoplasm of breast (principal)
CPT/HCPCS: 77063; 77067

== ENCOUNTER 2021-12-14 13:30 | Outpatient (RCR) | payer OTHER, SELFPAY ==
--- NOTE | 2021-08-23 10:33 | HP.PTEVAL_ITS ---
Patient's Visit Information RAZA GUAMAN is a 56 year old F referred to Physical Therapy by RONEN Ford with a diagnosis of Right Distal IT band Syndrome, Patellofemoral Syndrome, possible lateral me. Date of Evaluation: 08/23/21 Physical Therapist: Shaila Valente DPT - Visit Plan Frequency: 2x /Week Duration: 6 Weeks Plan: Focus on LE and core strength/stabilization- needs comprehensive HEP progression. HEP Given: Quad set, SLR, hamstring stretch, clams, prone hip extn, SLS - Subjective Patient reports that for about a year or more if she was on it the right knee would get stiff and hard to walk or stand. About 6 weeks ago she was getting down on the floor felt a tear in the knee. She feels that its the meniscus- she started doing some exercises off the internet (quad sets, LAQ, mini squat, etc). The exercises were making it worse- she felt like it was slipping and unstable. So she went to see Tonny HARDWICK- had x-rays which were negative- declined an injection and put her on an anti-infam and it feels great. At this point she feels 100% back to normal but has not pushed it. She does sometimes feel the pain. Worst: 4/10 Agg: movement, anything Best: 0/10 Eases: anti- inflammatory. She has not started the exercises back up. Describes the pain as unstable and dull and achy- the tear was more a sharp pain. Does have some tingling in the knee. Pain is located on the lateral aspect of the knee joint line. If she was walking a lot it would radiate to the calf. No N/T in the toes. No loss or change in bowel or bladder. No hip or back pain. Sleep: not disturbed- back/side sleeper. She is pretty active normally. 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 PMHx/Meds: diagnosed with Glaucoma- Med: unsure of the medication. - Objective Posture: FH, RS- can correct but does not maintain. Gait: no deviation noted- good lalo and step length. HR/TR: good no pain. SLS: 10 sec then LOB- increased muscle activation and hip drop. ROM: WFL in all planes. Sensation: WFL to gross touch bilaterally. Strength: Core: fair minus, Hip: 4/5 throughout, Left Knee Extn: 45, 53 Flexion: 40, 38 Right Knee Extn: 35, 40 Flexion: 33, 34- crepitus with testing on the right, Ankle: 5/5. Flex: HS: mild, Gastroc: mild - Special Tests L/S Slump test left side: Negative L/S Slump test right side: Negative L/S Left Straight Leg Raise: Negative L/S Right Straight Leg Raise: Negative R Knee Liliam - Meniscus: Negative R Knee Valgus - MCL: Negative R Knee Varus - LCL: Negative R Knee Patellar Grind - PFS: Negative - Balance/Special Test Scores Lower Extremity Functional Score: 62 30 Second Chair Rise Test Seconds: 22 - Goals Goal 1:: Patient will be I with HEP and progression Goal Time Frame: 4-6 Weeks Goal 2:: Patient will asc/desc 8 stairs recip with good eccentric control with single HR Goal Time Frame: 4-6 Weeks Goal 3:: Patient will report 80% better subjectively Goal Time Frame: 4-6 Weeks Goal 4:: Patient will maintain proper posture t/o tx session to demo increased core s/s Goal Time Frame: 4-6 Weeks Goal 5:: Patient will report no pain with ADL's for 1 week Goal Time Frame: 4-6 Weeks - Rehabilitation Potential Physical Therapy Diagnosis: Patient presents with hypomobility- she has decreased LE and core strength/stabilization and muscular endurance leading to increased pain with ADL's and recreational activities. Rehabilitation Potential: Good - Anticipated Interventions Patient/Client Instruction: Educate patient on: Benefits of Fitness Program Therapeutic Exercise to Include: Strength training, Endurance training, Balance training, Coordination, Agility training, Body mechanics, Postural training, Flexibilty training, Gait and locomotor training, Neuromotor development, Dynamic Lumbar Stabilization, Scapular Strength/Stabilization For the Purpose of:: To improve muscle performance and motor function TENS: Yes Cryotherapy (ice pack, ice massage): Yes Thermo therapy (hot pack): Yes Ultrasound (thermal/non thermal): Yes Thank you for the opportunity to evaluate your patient. For Medicare and Medicare HMO plans, please review the plan of care and approve it. It will need to be FAXED BACK to us at [phone] for Medicare purposes. For Medicare only, by signing this I certify the plan of care. Please let me know if there are questions or concerns regarding this plan of care. Physician Signature: Date:
--- NOTE | 2021-09-07 11:41 | HP.PTREVAL_ITS ---
RONEN Ford, It has been my pleasure to treat RAZA GUAMAN over the last 6 visits for Right Distal IT band Syndrome, Patellofemoral Syndrome, possible lateral me. Please see the progress note below for an update on the physical therapy plan of care! Subjective: Pt. reprots overall doing better. No pain today. Occcassiona tingling if moves akwardly. HEP complaint, ~40min. to complete. Objective/Function: Pt. reports being 75% better overall. She has good strength in BLEs. Pt. has some tightness in her R piriformis and R IT band, but is improved. She reports minimal to no pain with walking, occasional soreness if she hits her knee on something on the side of her knee. She is overall pleased with progress. Pt. is a little concerned about her hip mobility. She is going on vacation for a few weeks and will trial stretching and strengthening during this time. Plan Plan: She is going on vacation for a few weeks and will trial stretching and strengthening during this time. I will leave the case open during this 3-4 week time frame and re check when she gets back. If she is doing well, I will DC back to physician at that point in time. Balance/Gait/Functional tests - Balance/Special Test Scores Lower Extremity Functional Score: 70 Tug Test: <10 sec.=free mobile 30 Second Chair Rise Test Seconds: 22 Goals Goal 1:: Patient will be I with HEP and progression Goal Time Frame: 4-6 Weeks Goal Progress: Goal Met Goal 2:: Patient will asc/desc 8 stairs recip with good eccentric control with single HR Goal Time Frame: 4-6 Weeks Goal Progress: Progressing Goal 3:: Patient will report 80% better subjectively Goal Time Frame: 4-6 Weeks Goal Progress: Progressing Goal 4:: Patient will maintain proper posture t/o tx session to demo increased core s/s Goal Time Frame: 4-6 Weeks Goal Progress: Goal Met Goal 5:: Patient will report no pain with ADL's for 1 week Goal Time Frame: 4-6 Weeks Goal Progress: Goal Met Anticipated Interventions Patient/Client Instruction: Educate patient on: Benefits of Fitness Program Therapeutic Exercise to Include: Strength training, Endurance training, Balance training, Coordination, Agility training, Body mechanics, Postural training, Flexibilty training, Gait and locomotor training, Neuromotor development, Dynamic Lumbar Stabilization, Scapular Strength/Stabilization For the Purpose of:: To improve muscle performance and motor function TENS: Yes Cryotherapy (ice pack, ice massage): Yes Thermo therapy (hot pack): Yes Ultrasound (thermal/non thermal): Yes Please do not hesitate to contact me at [phone] by phone or Fax: if you have questions or concerns regarding this new plan of care! Sincerely, CHANA ChowT
--- NOTE | 2021-11-17 08:37 | HP.PTREVAL ---
RONEN Ford, It has been my pleasure to treat RAZA GUAMAN over the last 7 visits for Right Distal IT band Syndrome, Patellofemoral Syndrome, possible lateral me. Please see the progress note below for an update on the physical therapy plan of care! Subjective: She was doing really well- ant-inflam and therapy and it was doing great- they are not maintaining and getting worse again. She walked a 5K October 27 and she has been to [place] a lot and is having a lot of pain. 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 She is stretching daily and then doing the strength exercises every other day. Objective/Function: Posture: FH, RS- can correct but does not maintain. Gait: no deviation noted- good lalo and step length. HR/TR: good no pain. SLS: 10 sec then LOB- increased muscle activation and hip drop. ROM: WFL in all planes. Sensation: WFL to gross touch bilaterally. Strength: Core: fair minus, Hip: 4/5 throughout, Knee: 4+/5 with pain, Ankle: 5/5. Flex: HS: mild, Gastroc: mild Plan Plan: [facility]- 2x a week for 3 weeks. Focus on LE and core strength/stabilization Balance/Gait/Functional tests - Balance/Special Test Scores Lower Extremity Functional Score: 70 Tug Test: <10 sec.=free mobile 30 Second Chair Rise Test Seconds: 22 Goals Goal 1:: Patient will be I with HEP and progression Goal Time Frame: 4-6 Weeks Goal Progress: Goal Met Goal 2:: Patient will asc/desc 8 stairs recip with good eccentric control with single HR Goal Time Frame: 4-6 Weeks Goal Progress: Progressing Goal 3:: Patient will report 80% better subjectively Goal Time Frame: 4-6 Weeks Goal Progress: Progressing Goal 4:: Patient will maintain proper posture t/o tx session to demo increased core s/s Goal Time Frame: 4-6 Weeks Goal Progress: Goal Met Goal 5:: Patient will report no pain with ADL's for 1 week Goal Time Frame: 4-6 Weeks Goal Progress: Goal Met Anticipated Interventions Patient/Client Instruction: Educate patient on: Benefits of Fitness Program Therapeutic Exercise to Include: Strength training, Endurance training, Balance training, Coordination, Agility training, Body mechanics, Postural training, Flexibilty training, Gait and locomotor training, Neuromotor development, Dynamic Lumbar Stabilization, Scapular Strength/Stabilization For the Purpose of:: To improve muscle performance and motor function TENS: Yes Cryotherapy (ice pack, ice massage): Yes Thermo therapy (hot pack): Yes Ultrasound (thermal/non thermal): Yes Please do not hesitate to contact me at [phone] by phone or if you have questions or concerns regarding this new plan of care! Sincerely, CHANA BuchananT
--- NOTE | 2021-12-14 13:52 | HP.PTDCSUM ---
It has been my pleasure to treat RAZA GUAMAN referred by RONEN Ford, with the diagnosis of Right Distal IT band Syndrome, Patellofemoral Syndrome, possible lateral me for a total of 13 visit(s). Discharge Date: Please see the following information for a summary of their discharge status. Subjective: She still has trouble with walking over 3 miles- custodial into the walk she bent the knee and it hurt- in the knee. Concentrated harder on tightening up her muscles and she was okay. The next day both hips are really bad. She learned a lot in the pool and she did not hate it. She is for the majority painfree. R knee Pain Intensity (Out of 10): 0 Lumbar Spine Pain Intensity (Out of 10): 0 % Improvement: 92 Objective/Function: Posture: fair throughout treatment session. Gait: no deviation noted- good lalo and step length. HR/TR: good no pain. SLS: 20 sec then LOB- increased muscle activation and hip drop. ROM: WFL in all planes. Sensation: WFL to gross touch bilaterally. Strength: Core: fair plus, Hip: 4+/5 throughout, Knee: 4+/5 with pain, Ankle: 5/5. Flex: HS: mild, Gastroc: mild Goal 1:: Patient will be I with HEP and progression Goal Progress: Goal Met Goal 2:: Patient will asc/desc 8 stairs recip with good eccentric control with single HR Goal Progress: Progressing Goal 3:: Patient will report 80% better subjectively Goal Progress: Progressing Goal 4:: Patient will maintain proper posture t/o tx session to demo increased core s/s Goal Progress: Goal Met Goal 5:: Patient will report no pain with ADL's for 1 week Goal Progress: Goal Met Plan: 12/14/21: Discharge to [facility] HEP. *f/u with new HEP tasks. *Progress piriformis stretch to HEP next. Aquatic PT- 2x a week for 3 weeks. Focus on LE and core strength/stabilization If there are questions or concerns regarding this patient's physical therapy, please feel free to call me at [phone]. Thank you for the referral of this patient. Sincerely, Shaila Valente, DPT Balance/Gait/Functional tests - Balance/Special Test Scores Lower Extremity Functional Score: 71 Tug Test: <10 sec.=free mobile 30 Second Chair Rise Test Seconds: 22
== END 2021-12-14 15:05 | disposition home or self-care (01) ==
LOC: PT 13:30
PROVIDERS: PCP Family Medicine; Referring Provider Physician Assistant; Visit Provider Physician Assistant
DX: M76.31 Iliotibial band syndrome, right leg (principal); M22.2X1 Patellofemoral disorders, right knee
CPT/HCPCS: 97110; 97113; 97162; 97164

== ENCOUNTER → 2022-02-08 | Outpatient (CLI) | payer OTHER, SELFPAY ==
--- NOTE | 2022-02-08 08:09 | MRI_ITS ---
STUDY: MRI LEFT KNEE REASON FOR EXAM: Lateral left knee pain for 4 weeks, felt a pop while stretching. TECHNIQUE: Standardized fat and water weighted pulse sequences were obtained in all 3 orthogonal planes. COMPARISON: Radiographs 01/26/2022. FINDINGS: There is mild intrasubstance myxoid degeneration of the posterior horn of the medial meniscus without discrete medial meniscal tear. Normal hyaline cartilage of the medial femorotibial compartment. Normal medial femoral condyle and tibial plateau. Normal medial collateral ligamentous complex (MCL). Normal distal semimembranosus, gracilis and semitendinosus tendons. Normal lateral meniscus. Normal hyaline cartilage of the lateral femorotibial compartment. Normal lateral femoral condyle and tibial plateau. Normal proximal tibiofibular articulation. Normal lateral collateral (fibular) ligament. Normal popliteus tendon. Normal biceps femoris tendon. Normal anterior cruciate ligament (ACL). Normal posterior cruciate ligament (PCL). Normal congruent patellofemoral articulation. Normal hyaline cartilage of the patellofemoral compartment. Normal medial and lateral patellar retinaculum. Normal visualized quadriceps tendon. Normal patellar tendon. Normal Hoffa''s fat pad. There is a very small joint effusion. There is a thin medial patellar plica. There is mild edema in the anterior subcutis adipose space. There is a small cyst in the proximal tibia at the insertion site of the posterior cruciate ligament. MRI/Lower Ext Joint Only (Routine) IMPRESSION: Very small joint effusion. No demonstrated meniscal or ligamentous injury. Electronically Signed: Severiano Baugh MD at 9:43 EDT ,
== END | disposition home or self-care (01) ==
PROVIDERS: PCP Family Medicine; Referring Provider Physician Assistant; Visit Provider Physician Assistant
DX: M23.92 Unspecified internal derangement of left knee (principal); X58.XXXA Exposure to other specified factors, initial encounter
CPT/HCPCS: 73721

== ENCOUNTER 2022-03-29 10:00 | Outpatient (RCR) | payer OTHER, SELFPAY ==
--- NOTE | 2022-02-21 11:18 | HP.PTEVAL ---
Patient's Visit Information RAZA GUAMAN is a 57 year old F referred to Physical Therapy by RONEN Ford with a diagnosis of Left Knee Pain. Date of Evaluation: 02/21/22 Physical Therapist: Shaila Valente DPT - Visit Plan Frequency: 2x /Week Duration: 4 Weeks Plan: Focus on LE and core strength/stabilization. Modality of US and E-stim- VASO PRN. HEP Given IE: Bolster extn, SLR, quad set, hamstring isometrics - Subjective Patient reports that she is having left knee pain- started about 6 weeks ago- thinks she was stretching and something popped. Went to ortho and they did an MRI which was negative by radiology- PA thinks possibly he saw a tear. She was put on a prednisone pack and meloxicam. She stopped the Meloxicam yesterday due to heart burn. Worst: 4/10 Agg: sleeping, bending, squatting down, lots of walking, stairs (down is worse). Best: 0/10 Eases: medication, brace. Wears the brace all the time except for sleeping. Sleep: disturbed- side sleeper- pillow between the knees helps a little. The pain is located on the lateral aspect of the knee- radiates to the ankle. Describes the pain as dull and achy. Occasionally has N/T. She is pretty active during the day. Not workings. She stopped doing the stretching but then she started having pain with the other knee and is back to doing the stretches for the right knee. She is unsure on what is okay to do strength espinoza for both knees. PMHx/Meds: no changes since she saw ortho. - Objective Posture: FH, RS- can correct with verbal cues but does not maintain. Gait: slight deviation- decreased stance on the left LE. HR/TR: able with tightness with TR. Stairs: asc/desc 8 recip with 2 HR- poor control with descent. SLS: weight shift but unable to SLS- reports instability. Palpation: tender along lateral joint line. ROM: 0-125 degrees with tightness at end range flexion and tenderness with extension. Flex: HS: mild, Gastroc: mild. Strength: Core: fair minus, Hip: 4+/5, Knee: Flexion: 3+/5 with pain, Extn: 4+/5, Ankle: 5/5. Girth: Patella: Left- 45.5 cm Right-43cm - Special Tests L Knee Liliam - Meniscus: Positive L Knee Varus - LCL: Positive - Balance/Special Test Scores Lower Extremity Functional Score: 33 - Goals Goal 1:: Patient will be I with HEP and progression Goal Time Frame: 4-6 Weeks Goal 2:: Patient will ambulate >300 feet with a normalized gait pattern Goal Time Frame: 4-6 Weeks Goal 3:: Patient will asc/desc 8 stairs recip with a normalized pattern Goal Time Frame: 4-6 Weeks Goal 4:: Patient will report 80% improvement Goal Time Frame: 4-6 Weeks - Rehabilitation Potential Physical Therapy Diagnosis: Patient presents with hypomobility- she has decreased LE and core strength/stabilization and muscular endurance leading to increased pain with ADL's. Rehabilitation Potential: Good - Anticipated Interventions Patient/Client Instruction: Educate patient on: Benefits of Fitness Program Therapeutic Exercise to Include: Strength training, Endurance training, Balance training, Coordination, Agility training, Body mechanics, Postural training, Flexibilty training, Gait and locomotor training, Neuromotor development, Dynamic Lumbar Stabilization, Scapular Strength/Stabilization For the Purpose of:: To improve muscle performance and motor function TENS: Yes Thermo therapy (hot pack): Yes Ultrasound (thermal/non thermal): Yes Thank you for the opportunity to evaluate your patient. For Medicare and Medicare HMO plans, please review the plan of care and approve it. It will need to be FAXED BACK to us at [phone] for Medicare purposes. For Medicare only, by signing this I certify the plan of care. Please let me know if there are questions or concerns regarding this plan of care. Physician Signature: Date:
--- NOTE | 2022-03-29 10:54 | HP.PTDCSUM_ITS ---
It has been my pleasure to treat RAZA GUAMAN referred by RONEN Ford, with the diagnosis of Left Knee Pain for a total of 10 visit(s). Discharge Date: Please see the following information for a summary of their discharge status. Subjective: Patient reports that she is doing great- she is 98% better- she only has pain when she pushes into full extension. Its not normally pain its more feeling like it needs to pop. She plans to continue her exercise program through [facility] and wellness. Left Knee Pain Intensity (Out of 10): 0 % Improvement: 98 Objective/Function: Posture: good throughout Gait:no deviation noted HR/TR: able Stairs: asc/desc 8 recip without HR SLS: 10 seconds Palpation: not tender to touch ROM: 0-125 degrees Flex: HS: mild, Gastroc: mild. Strength: Core: fair minus, Hip: 4+/5, Knee:5/5, Ankle: 5/5. Goal 1:: Patient will be I with HEP and progression Goal Progress: Goal Met Goal 2:: Patient will ambulate >300 feet with a normalized gait pattern Goal Progress: Goal Met Goal 3:: Patient will asc/desc 8 stairs recip with a normalized pattern Goal Progress: Goal Met Goal 4:: Patient will report 80% improvement Goal Progress: Goal Met Plan: Discharge to [facility] If there are questions or concerns regarding this patient's physical therapy, please feel free to call me at [phone]. Thank you for the referral of this patient. Sincerely, Shaila Valente, DPT Balance/Gait/Functional tests - Balance/Special Test Scores Lower Extremity Functional Score: 80
== END 2022-03-29 14:28 | disposition home or self-care (01) ==
LOC: PT 10:00
PROVIDERS: PCP Family Medicine; Referring Provider Physician Assistant; Visit Provider Physician Assistant
DX: M23.92 Unspecified internal derangement of left knee (principal); M22.42 Chondromalacia patellae, left knee
CPT/HCPCS: 97014; 97110; 97161; 97164; G0283

== ENCOUNTER → 2022-07-31 | Outpatient (CLI) | payer OTHER, SELFPAY ==
[2022-07-31 10:14] LABS: Anion Gap 7 (5-15); BUN 20 mg/dL (7-18); BUN/Creat Ratio 19.8 RATIO (10-20); Calcium,Total 9.7 mg/dL (8.5-10.1); Chloride 105 mmol/L (98-107); Cholesterol 258 mg/dL (200); Creatinine, Serum 1.01 mg/dL (0.55-1.02); EST Glomerular Filtration Rate 60 mL/min (>60); Est Glom Filt Rate - Afr Amer 72 mL/min (>60); Glucose 111 mg/dL (74-106); High Density Lipoprotein 72 mg/dL; Potassium 3.9 mmol/L (3.5-5.1); Sodium Level 138 mmol/L (136-145); Thyroid Stim Hormone (TSH) 2.96 uIU/mL (0.358-3.74); Triglycerides 210 mg/dL; Very Low Density Lipoprotein 42 mg/dL (5-40)
== END | disposition home or self-care (01) ==
LOC: MTLAB 07:19
PROVIDERS: PCP Family Medicine; Referring Provider Family Medicine; Visit Provider Family Medicine
DX: Z13.29 Encounter for screening for other suspected endocrine disorder (principal); I10 Essential (primary) hypertension
CPT/HCPCS: 36415; 80048; 80061; 84443

== ENCOUNTER → 2022-08-30 | Outpatient (CLI) | payer OTHER, SELFPAY ==
--- NOTE | 2022-08-30 10:02 | RAD_ITS ---
STUDY: X-RAY - PARANASAL SINUSES REASON FOR EXAM: Female, 57 years old. Chronic sinusitis TECHNIQUE: view(s) of the paranasal sinuses were obtained. COMPARISON: None. FINDINGS: Minimal wall thickening of the right and left maxillary antra. No air-fluid level to suggest acute sinusitis. Normal visualized facial bones. The soft tissue structures are unremarkable. RAD/Sinuses min 3 Views IMPRESSION: Maxillary wall thickening bilaterally. No air-fluid levels. Electronically Signed: Roosevelt Otto, at 15:46 EDT ,
== END | disposition home or self-care (01) ==
LOC: MTRAD 10:01
PROVIDERS: PCP Family Medicine; Referring Provider Family Medicine; Visit Provider Family Medicine
DX: J32.0 Chronic maxillary sinusitis (principal)
CPT/HCPCS: 70220

== ENCOUNTER → 2022-10-29 | Outpatient (CLI) | payer OTHER, SELFPAY ==
--- NOTE | 2022-10-29 14:53 | CT_ITS ---
STUDY: CT MAXILLOFACIAL SINUSES REASON FOR EXAM: Female, 57 years old. CHRONIC SINUSITIS RADIATION DOSAGE (If Supplied By Facility): CTDIvol = ( 33.06 ) mGy, DLP = ( 858.64 ) mGycm TECHNIQUE: The patient was scanned in a multi detector CT scanner. High resolution axial imaging was performed without the administration of intravenous contrast material. Sagittal and coronal images were reconstructed. Individualized dose optimization techniques were used for this CT. COMPARISON: Comparison is made with prior examination of April 11, 2019. FINDINGS: FRONTAL SINUSES: Normal aeration, without mucosal inflammatory disease. ETHMOIDAL SINUSES: Normal aeration, without mucosal inflammatory disease. MAXILLARY SINUSES: Normal aeration, without mucosal inflammatory disease. SPHENOIDAL SINUSES: Normal aeration, without mucosal inflammatory disease. There is patency of the bilateral maxillary infundibuli with normal uncinate processes, ethmoid bullae, and hiatus semilunaris. Normal bilateral middle turbinates. Normal bilateral inferior turbinates. Normal midline nasal septum. There is patency of the bilateral nasal airways. The visualized osseous structures are normal. The visualized bilateral orbital contents are normal. CT/Sinus/Facial Bone IMPRESSION: Normal CT examination of the maxillofacial sinuses. Electronically Signed: Rashawn Esposito MD at 15:17 EDT ,
== END | disposition home or self-care (01) ==
PROVIDERS: PCP Family Medicine; Referring Provider Family Medicine; Visit Provider Family Medicine
DX: J32.9 Chronic sinusitis, unspecified (principal)
CPT/HCPCS: 70486

== ENCOUNTER → 2022-12-19 | Outpatient (CLI) | payer OTHER, SELFPAY ==
--- NOTE | 2022-12-19 09:46 | BI_ITS ---
MAMMOGRAPHY - BILATERAL SCREENING REASON FOR EXAM: Female, 57 years old. Routine annual screening examination. PERTINENT HISTORY: Non-contributory. TECHNIQUE: Digital bilateral breast benny (3D mammographic acquisition) in the CC and MLO projections. 2-D mediolateral oblique (MLO) and craniocaudad (CC) views of both breasts were obtained. CAD: Full Field Digital Mammography with Computer Added Detection was performed. COMPARISON: Comparison is made with prior study dated November 09, 2021 and November 07, 2020. FINDINGS: Breast Composition: There are scattered areas of fibroglandular density. There are no dominant masses or suspicious calcifications. Stable benign appearing bilateral axillary lymph nodes. No other significant abnormalities are identified. There has been no significant change since the prior study. BI/SCRN MAMM (CAD)W/BENNY BILAT IMPRESSION: Stable bilateral screening mammogram. Yearly follow-up mammogram recommended. (A) ASSESSMENT CATEGORY: BIRADS Category 2: Benign. A letter regarding these results will be sent to the patient by the facility within 30 days. Approximately 10% of breast cancers are not detected by mammography. A normal mammogram should not delay biopsy of a clinically suspicious abnormality. [id number] Electronically Signed: Rashawn Esposito MD at 11:22 EDT ,
== END | disposition home or self-care (01) ==
LOC: OPBI 09:45
PROVIDERS: PCP Family Medicine; Referring Provider Student in an Organized Health Care Education/Training Program; Visit Provider Student in an Organized Health Care Education/Training Program
DX: Z12.31 Encounter for screening mammogram for malignant neoplasm of breast (principal)
CPT/HCPCS: 77063; 77067

== ENCOUNTER → 2023-01-16 | Outpatient (CLI) | payer OTHER, SELFPAY ==
[2023-01-16 15:12] LABS: Color, Urine Yellow (Yellow); Glucose, Dipstick Normal (Normal); Ketone-Dipstick Negative (Negative); Leukocyte Esterase-Dipstick Negative /ul (Negative); Nitrite-Dipstick Negative (Negative); Occult Blood-Urine Negative /ul (Negative); Protein-Dipstick Negative (Negative); Urine Bilirubin Dipstick Negative (Negative); Urine Clarity Clear (Clear); Urine Urobilinogen Normal (Normal)
[2023-01-16 15:15] LABS: Absolute Lymphocyte Count 1.73 X10^3/uL (0.83-4.51); Absolute Neutrophil Count 4.3 X10^3/uL (2.0-7.7); Basophil# 0.06 X10^3/uL; Basophil% 0.9 % (0-1); Hematocrit 42.1 % (37-47); Hemoglobin 13.7 g/dL (12.0-15.0); Lymphocyte # 1.73 X10^3/ul (0.83-4.51); Lymphocyte % 26.5 % (19-41); Mean Corp Hgb Conc 32.5 g/dL (32-36); Mean Corpuscular Hgb 32.8 pg (27.0-32.0); Mean Corpuscular Volume 100.7 fL (81-99); Mean Platelet Vol. 9.7 fl (6.2-12.0); Monocyte# 0.47 X10^3/uL; Monocyte% 7.2 % (0-10); NRBC Flagged by Analyzer 0 % (0-5); Neutrophil # 4.25 X10^3/uL (2.7-7.7); Neutrophil % 64.9 % (47-70); Platelet Count 308 K/mm3 (150-450); RBC Distribution Width CV 12.5 % (11.6-14.6); RBC Distribution Width SD 46.8 fl (35.1-43.9); Red Blood Count 4.18 M/mm3 (4.2-5.4); White Blood Count 6.5 K/mm3 (4.4-11.0)
[2023-01-16 15:22] LABS: Erythrocyte Sedimentation Rate 9 mm/hr (0-30)
[2023-01-16 15:34] LABS: Microalbumin,Random Urine < 5.0 mg/L (NO RANGE EST.)
[2023-01-18 13:08] LABS: SJOGREN'S Anti-SS-A test < 0.2 AI (0.0-0.9); SJOGREN'S Anti-SS-B test < 0.2 AI (0.0-0.9)
== END | disposition home or self-care (01) ==
PROVIDERS: PCP Family Medicine; Referring Provider Family Medicine; Visit Provider Family Medicine
DX: Z00.00 Encounter for general adult medical examination without abnormal findings (principal); H04.123 Dry eye syndrome of bilateral lacrimal glands
CPT/HCPCS: 36415; 81002; 82043; 85025; 85652; 86235

== ENCOUNTER → 2024-03-02 | Outpatient (CLI) | payer OTHER, SELFPAY ==
--- NOTE | 2024-03-02 14:39 | BI_ITS ---
MAMMOGRAPHY - BILATERAL SCREENING REASON FOR EXAM: Female, 59 years old. Routine annual screening examination. PERTINENT HISTORY: Non-contributory. TECHNIQUE: Digital bilateral breast benny (3D mammographic acquisition) in the CC and MLO projections. 2-D mediolateral oblique (MLO) and craniocaudad (CC) views of both breasts were obtained. CAD: Full Field Digital Mammography with Computer Added Detection was performed. COMPARISON: Comparison is made with prior study dated December 19, 2022 and November 09, 2021. FINDINGS: Breast Composition: There are scattered areas of fibroglandular density. There are no dominant masses or suspicious calcifications. Stable benign-appearing bilateral axillary lymph nodes. No other significant abnormalities are identified. There has been no significant change since the prior study. BI/SCRN MAMM (CAD)W/BENNY BILAT IMPRESSION: Stable bilateral screening mammogram. Yearly follow-up mammogram recommended. (A) ASSESSMENT CATEGORY: BIRADS Category 2: Benign. A letter regarding these results will be sent to the patient by the facility within 30 days. Approximately 10% of breast cancers are not detected by mammography. A normal mammogram should not delay biopsy of a clinically suspicious abnormality. [id number] Electronically Signed: Rashawn Esposito MD at 8:33 EDT ,
== END | disposition home or self-care (01) ==
PROVIDERS: PCP Family Medicine; Referring Provider Nurse Practitioner Family; Visit Provider Nurse Practitioner Family
DX: Z12.31 Encounter for screening mammogram for malignant neoplasm of breast (principal)
CPT/HCPCS: 77063; 77067

== ENCOUNTER → 2024-05-13 | Outpatient (CLI) | payer OTHER, SELFPAY ==
[2024-05-13 12:38] LABS: Anion Gap 9 (5-15); BUN 14 mg/dL (7-18); BUN/Creat Ratio 18.1 RATIO (10-20); Calcium,Total 9.8 mg/dL (8.5-10.1); Chloride 108 mmol/L (98-107); Cholesterol 272 mg/dL (200); Creatinine, Serum 0.78 mg/dL (0.55-1.02); EST Glomerular Filtration Rate 81 mL/min (>60); Est Glom Filt Rate - Afr Amer 98 mL/min (>60); Glucose 114 mg/dL (74-106); High Density Lipoprotein 65 mg/dL; Potassium 4.1 mmol/L (3.5-5.1); Sodium Level 136 mmol/L (136-145); Triglycerides 186 mg/dL; Very Low Density Lipoprotein 37 mg/dL (5-40)
== END | disposition home or self-care (01) ==
LOC: MFPLAB 09:46
PROVIDERS: PCP Family Medicine; Visit Provider Family Medicine
DX: I10 Essential (primary) hypertension (principal); E66.9 Obesity, unspecified
CPT/HCPCS: 36415; 80048; 80061; 84443

== ENCOUNTER → 2025-03-03 | Outpatient (CLI) | payer OTHER, SELFPAY ==
--- NOTE | 2025-03-03 15:00 | BI_ITS ---
EXAM: SCRN MAMM (CAD)W/BENNY BILAT DATE: 03/03/2025 CLINICAL HISTORY: F, Age 60 y/o , SCREEN FOR BREAST CANCER No family history. TECHNIQUE: Procedure Code: [id number] Modality: MG Procedure: SCRN MAMM (CAD)W/BENNY BILAT COMPARISON: Prior exam(s) dated March 02, 2024.. FINDINGS: TISSUE DENSITY: There are scattered areas of fibroglandular density. Bilateral Breast Mammographic Findings: No significant masses, calcifications or other abnormalities are identified. Stable small benign-appearing bilateral axillary lymph nodes. No suspicious masses, areas of developing architectural distortion, or suspicious calcifications. There has been no significant interval change. BI/SCRN MAMM (CAD)W/BENNY BILAT IMPRESSION: Stable bilateral screening mammogram. OVERALL FINAL ASSESSMENT BI-RADS 2: BENIGN RECOMMENDATION: Routine annual follow-up in 1 Year A letter with findings and recommendations will be mailed to the patient. Reading Location: [place] [id number]
== END | disposition home or self-care (01) ==
PROVIDERS: PCP Family Medicine; Referring Provider Nurse Practitioner Family; Visit Provider Nurse Practitioner Family
DX: Z12.31 Encounter for screening mammogram for malignant neoplasm of breast (principal)
CPT/HCPCS: 77063; 77067

== ENCOUNTER → 2025-05-26 | Outpatient (CLI) | payer OTHER, SELFPAY ==
--- OUTSIDE RECORDS SUMMARY | 2025-05-26 10:55 | XMS RPT_ITS | CCD ---
Author Organization [facility] CliniSypr Care Team Providers Care Blank Driller Name Role Phone Dr. Alex Farris Primary Care Provider [phone] Dr. Alex Farris Referring Provider RONEN Carrillo Attending Provider Dr. Segundo Joy Attending Provider Dr. Alex Farris Primary Care Provider [phone] Dr. Alex Farris Referring Provider RONEN Carrillo Attending Provider RONEN Chaney Attending Provider MD Gerald Boykin Attending Provider Dr. Alex Farris Primary Care Provider [phone] Dr. Alex Farris Referring Provider RONEN Carrillo Attending Provider RONEN Chaney Attending Provider [phone] MD Gerald Boykin Attending Provider Unavailable Primary Care Provider UnavailDENISE Manuel Referring Unavailable DENISE MARLOW Attending Unavailable Dr. Hieu Farris MD Primary Care Provider Dr. Hieu Farris MD Referring Provider Celina Lopez Attending Provider [phone] Dr. Hieu Farris MD Primary Care Physicia n Celina Lopez Attending Physician [phone] Celina Lopez Referring Provider [phone] Hieu Farris Referring Unavailable Celina Bacon Attending Unavailable [facility] Unavailable [facility] Primary Care Unavailable Celina Bacon Referring Unavailable Celina Bacon Attending Unavailable Hieu Farris Attending Unavailable [facility] Unavailable [facility] Unavailable Segundo Joy Attending Unavailable Hieu Farris Referring Unavailable [facility] Unavailable Gerald Boykin Attending Unavailable Allergies Allergy Classification Reported Allergen(s) Allergy Type Date of Onset Reaction(s) Facility NSAIDs (1 source) Naproxen Drug Allergy 9 [facility] Sulfonamides (antibiotic) (1 source) Sulfonamides (Antibiotic) Drug Allergy 5 [facility] Work Phone: (8 sources) Naproxen Drug Allergy 2 / [facility] (8 sources) sulfADIAZINE Drug Allergy 2 / [facility] (9 sources) Naproxen; Translations: [NAPROXEN SODIUM] Drug Allergy 9 [facility] (9 sources) Sulfonamides (Antibiotic); Translations: [SULFA (SULFONAMIDE ANTIBIOTICS)] Propensity to adverse reactions [address] [place] [address] Work Phone: (1 source) Naproxen Drug Allergy 5 [facility] Repository (1 source) sulfADIAZINE Drug Allergy 5 [facility] Medications Current Medications Medication Drug Class(es) Dates Sig (Normalized) Sig (Original) [id number] 200 actuat albuterol 0.09 mg/actuat metered dose inhaler (14 sources) beta2-Adrenergic Agonist Start: 05-04-2024 albuterol HFA (PROVENTIL HFA, VENTOLIN HFA) 90 mcg/actuation inhaler USE 2 INHALATIONS BY MOUTH EVERY 4 HOURS NEEDED DIRECTED 40.2 g 3 05/04/2024 Active Start: 12-06-2023 End: 03-05-2024 take 2 puff(s) by inhalation every four hours as needed albuterol HFA (PROVENTIL HFA, VENTOLIN HFA) 90 mcg/actuation inhaler Inhale 2 Puffs as instructed every 4 hours as needed. 1 Each 12/06/2023 Active albuterol HFA 90 mcg/actuation HFA Inhale as instructed. Active breath-actuated 120 actuat beclomethasone dipropionate 0.08 mg/actuat metered dose inhaler (4 sources) Corticosteroid Start: 12-25-2023 take 2 puff(s) by inhalation twice daily beclomethasone (QVAR REDIHALER) 80 mcg/actuation inhaler Inhale 2 Puffs as instructed two times a day. 3 Each 2 12/25/2023 Active doxycycline hyclate 20 mg oral tablet (8 sources) Tetracycline-class Drug Start: 02-18-2025 take 1 tablet by mouth twice daily Start: 06-28-2022 End: 02-08-2023 take 1 capsule by mouth once daily Doxycycline Hyclate 50 mg capsule Discontinued 50 mg PO DAILY June 28, 2022 1:00am February 08, 2023 10:37am fluticasone propionate 0.05 mg/actuat metered dose nasal spray (8 sources) Corticosteroid Start: 06-13-2022 take 2 spray(s) nasal route twice daily fluticasone (FLONASE) 50 mcg/actuation nasal spray Use 2 Sprays in each nostril two times a day. 06/13/2022 Active Start: 06-13-2022 take 50 ug nasal rou te twice daily Start: 06-13-2022 take 1 spray(s) nasa l route twice daily Fluticasone Propionate (Flonase Allergy Relief) 50 mcg/actuation spray,suspension Active 1 SPRAY INTRANASAL TWICE A DAY June 13, 2022 1:00am administer into each nostril latanoprost 0.05 mg/ml ophthalmic solution (2 sources) Prostaglandin Analog Start: 08-06-2024 take 1 drop(s) into the eye(s) once daily at bedtime latanoprost (XALATAN) 0.005 % ophthalmic solution Use 1 Drop in both eyes daily at bedtime. 08/06/2024 Active lisinopril 40 mg oral tablet (12 sources) Angiotensin Converting Enzyme Inhibitor Start: 2020 take 1 tablet by mouth once daily Start: 03-18-2018 End: 02-08-2023 take 2 tablets by mouth once daily Lisinopril 10 mg tablet Discontinued 20 mg PO DAILY March 18, 2018 12:00am February 08, 2023 10:37am Start: 03-18-2018 take 20 mg by mouth once daily Lisinopril Active 20 MG PO DAILY March 18, 2018 12:00am meloxicam 7.5 mg oral tablet (20 sources) Nonsteroidal Anti-inflammatory Drug Start: 03-05-2024 take 1 tablet by mouth twice daily as needed for pain Start: 08-06-2023 End: 03-30-2024 take 1 tablet by mouth once daily as needed for pain Meloxicam 7.5 mg tablet Discontinued 7.5 mg PO DAILY as needed for pain 14 14 1 February 12, 2024 7:01am March 30, 2024 9:34am Start: 02-09-2022 End: 06-15-2022 take 1 tablet by mouth once daily as needed for pain Meloxicam 15 mg tablet Discontinued 15 mg PO DAILY as needed for pain 30 0 May 11, 2022 2:37pm June 15, 2022 11:52am Start: 08-09-2021 End: 01-26-2022 take 1 tablet by mouth once daily Meloxicam 15 mg tablet Discontinued 15 mg PO DAILY 30 0 November 16, 2021 12:11pm January 26, 2022 10:19am 120 actuat mometasone furoate 0.2 mg/actuat metered dose inhaler (20 sources) Corticosteroid Start: 02-03-2025 End: 05-04-2025 take 2 puff(s) by inhalation twice daily mometasone (ASMANEX HFA) 200 mcg/actuation HFA Inhale 2 puffs as instructed two times a day. 3 each 3 02/03/2025 05/04/2025 Active Start: 12-06-2023 End: 12-25-2023 take 2 puff(s) by inhalation twice daily mometasone 200 mcg/actuation HFA Inhale 2 Puffs as instructed two times a day. 3 Each 3 12/06/2023 12/25/2023 Discontinued Start: 12-06-2023 End: 12-25-2023 take 2 puff(s) by inhalation twice daily mometasone 200 mcg/actuation HFA Inhale 2 Puffs as instructed two times a day. 1 Each 0 12/06/2023 12/25/2023 Discontinued Start: 12-06-2023 End: 03-05-2024 take 2 puff(s) by inhalation twice daily mometasone 200 mcg/actuation HFA Inhale 2 Puffs as instructed two times a day. 3 Each 3 12/06/2023 03/05/2024 Active Start: 12-06-2023 take 2 puff(s) by in halation twice daily mometasone 200 mcg/actuation HFA Inhale 2 Puffs as instructed two times a day. 1 Each 0 12/06/2023 Active Start: 06-19-2017 End: 08-09-2021 Mometasone (Asmanex Hfa) 100 mcg/actuation HFA aerosol inhaler Discontinued 2 NMA INHALATION Q12H 3 3 February 10, 2019 12:39pm March 28, 2020 2:59pm Start: 06-19-2017 End: 08-09-2021 take 1 puff(s) by inhalation every twelve hours Mometasone (Asmanex Hfa) 100 mcg/actuation HFA aerosol inhaler Discontinued 2 PUFF INHALATION Q12H 3 February 10, 2019 12:39pm March 28, 2020 2:59pm Start: 05-23-2017 End: 10-09-2017 Mometasone (Asmanex Hfa) 100 mcg/actuation HFA aerosol inhaler Discontinued 1 NMA INHALATION ONCE May 23, 2017 1:00am October 09, 2017 9:36am Start: 05-23-2017 End: 10-09-2017 Mometasone (Asmanex Hfa) 100 mcg/actuation HFA aerosol inhaler Discontinued 1 INH INHALATION ONCE May 23, 2017 1:00am October 09, 2017 9:36am End: 12-06-2023 MOMETASONE FUROATE (ASMANEX HFA INHALATION) Inhale 1 Inhalation as instructed once daily. 0 12/06/2023 Discontinued MOMETASONE FUROA TE (ASMANEX HFA INHALATION) Inhale 1 Inhalation as instructed once daily. 0 Active Multivitamin preparation (6 sources) Start: 06-27-2018 Multivitamin A ctive 1 EACH PO DAILY June 27, 2018 12:00am Start: 06-27-2018 Multivitamin A ctive 1 EACH PO DAILY June 27, 2018 1:00am Completed/Discontinued Medications Medication Drug Class(es) Dates Sig (Normalized) Sig (Original) acetaminophen 325 mg / HYDROcodone bitartrate 5 mg oral tablet (8 sources) Opioid Agonist Start: 07-04-2018 End: 03-28-2020 take 1-2 tablets by mouth every six hours as needed for pain Hydrocodone-Acetami nophen 1 EACH tablet Discontinued 1 NMA PO EVERY 6 HOURS NEEDED as needed for Pain 30 0 July 04, 2018 9:08am March 28, 2020 2:21pm Plantar fascial fibromatosis Take 1-2 tabs PO q 6 hours prn pain Start: 07-04-2018 End: 03-28-2020 take 1-2 tablets by mouth every six hours as needed for pain Hydrocodone-Acetaminophen Discontinued 1 EACH PO EVERY 6 HOURS NEEDED July 04, 2018 9:08am March 28, 2020 2:21pm Take 1-2 tabs PO q 6 hours prn pain adapalene 0.001 mg/mg topical gel (7 sources) Retinoid Start: 09-11-2012 End: 08-19-2024 adapalene (DIFFERIN) 0.1 % gel Indications: Other acne , Other acne Apply to entire affected areas of acne daily up to twice daily (if needed) as directed and tolerated. 45 g 6 09/11/2012 08/19/2024 Discontinued Amberjack (8 sources) Start: 06-27-2018 End: 08-09-2021 Amberen Discontinued 2 NMA P O DAILY June 27, 2018 1:00am August 09, 2021 3:09pm Start: 06-27-2018 End: 08-09-2021 take 2 capsules by mouth once daily Amberen Discontinued 2 CAP PO DAILY June 27, 2018 12:00am August 09, 2021 2:09pm Start: 06-27-2018 End: 08-09-2021 take 2 capsules by mouth once daily Amberen Discontinued 2 CAP PO DAILY June 27, 2018 1:00am August 09, 2021 3:09pm amLODIPine 10 mg oral tablet (4 sources) Dihydropyridine Calcium Channel Jewel Start: 10-09-2017 End: 12-06-2023 take 1 tablet by mouth once daily amLODIPine (NORVASC) 10 mg tablet Take 1 tablet by mouth once daily. 30 tablet 0 10/09/2017 12/06/2023 Discontinued amoxicillin 500 mg oral capsule (6 sources) Penicillin-class Antibacterial Start: 06-13-2022 End: 06-21-2022 take 1 capsule by mouth twice daily Amoxicillin 500 mg capsule Discontinued 500 mg PO TWICE A DAY 20 June 13, 2022 1:00am June 22, 2022 1:00am June 21, 2022 2:53pm etodolac 300 mg oral capsule (12 sources) Nonsteroidal Anti-inflammatory Drug Start: 06-15-2022 End: 02-08-2023 take 1 capsule by mouth every eight hours Etodolac 300 mg capsule Discontinued 300 mg PO Q8H 15 June 19, 2022 10:41am February 08, 2023 10:37am gabapentin 300 mg oral capsule (4 sources) Anti-epileptic Agent Start: 11-21-2016 End: 12-06-2023 take 1 capsule by mouth once daily at bedtime gabapentin (NEURONTIN) 300 mg capsule Take 1 capsule by mouth daily at bedtime. 30 capsule 12 11/21/2016 12/06/2023 Discontinued methylPREDNISolone 4 mg oral tablet (13 sources) Corticosteroid Start: 01-26-2022 End: 06-15-2022 take 1 tablet by mouth once daily Methylprednisolone (Medrol (Bobby)) 4 mg tablets,dose pack Discontinued 4 mg PO DAILY May 11, 2022 2:37pm June 15, 2022 11:52am Multivitamin 1 EACH tablet (2 sources) Start: 06-27-2018 End: 02-18-2025 Multivitamin 1 EACH tablet Discontinued 1 NMA PO DAILY June 27, 2018 1:00am February 18, 2025 1:08pm 24 hr oxybutynin chloride 15 mg extended release oral tablet (2 sources) Cholinergic Muscarinic Antagonist Start: 02-08-2023 End: 02-18-2025 take 1 tablet by mouth once daily Oxybutynin Chloride 15 mg tablet extended release 24hr Discontinued 15 mg PO DAILY February 08, 2023 12:00am February 18, 2025 1:08pm PARoxetine hydrochloride 10 mg oral tablet (4 sources) Serotonin Reuptake Inhibitor Start: 10-09-2017 End: 12-06-2023 take 1 tablet by mouth once daily PARoxetine (PAXIL) 10 mg tablet Take 1 tablet by mouth once daily. 30 tablet 0 10/09/2017 12/06/2023 Discontinued spironolactone 50 mg oral tablet (12 sources) Aldosterone Antagonist Start: 05-23-2017 End: 12-06-2023 take 1 tablet by mouth once daily in the morning Spironolactone 50 mg tablet Discontinued 50 mg PO EVERY MORNING May 23, 2017 1:00am August 09, 2021 3:09pm Problems Active Problems Problem Classification Problem Date Documented Da te Episodic/Chronic Allergic reactions (3 sources) H/O: non-drug allergy; Translations: [Other allergy status, other than to drugs and biological substances] Onset: 12-06-2023 12-06-2023 Episodic Asthma (20 sources) Asthma; Translations: [Unspecified asthma, uncomplicated] Onset: 08-26-2017 03-28-2020 Chronic Disorders of lipid metabolism (8 sources) Hyperlipidemia; Translations: [Hyperlipidemia, unspecified] Onset: 07-03-2017 07-03-2017 Chronic Essential hypertension (9 sources) Benign hypertension; Translations: [Essential (primary) hypertension] Onset: 07-02-2017 07-02-2017 Chronic Headache; including migraine (8 sources) Headache; Translations: [Headache] 07-04-2018 Episodic Joint disorders and dislocations; trauma-related (8 sources) Patellofemoral stress syndrome; Translations: [Patellofemoral disorders, right knee] 08-09-2021 Chronic Joint disorders and dislocations; trauma-related (20 sources) Derangement of left knee; Translations: [Unspecified internal derangement of left knee] Onset: 03-30-2024 Chronic Menopausal disorders (2 sources) Atrophy of vagina; Translations: [Postmenopausal atrophic vaginitis] 02-06-2024 Chronic Other bone disease and musculoskeletal deformities (6 sources) Chondromalacia; Translations: [Chondromalacia, left knee] 02-12-2022 Episodic Other bone disease and musculoskeletal deformities (4 sources) Chondromalacia, left knee; Translations: [Chondromalacia of patella] 05-11-2022 Episodic Other bone disease and musculoskeletal deformities (1 source) Chondromalacia of left knee; Translations: [Chondromalacia, left knee] 02-12-2022 Episodic Other connective tissue disease (8 sources) Iliotibial band friction syndrome of right knee; Translations: [Iliotibial band syndrome, right leg] 08-09-2021 Episodic Other connective tissue disease (5 sources) Synovial plica of knee; Translations: [Plica syndrome, left knee] 06-19-2022 Episodic Other connective tissue disease (2 sources) Plica syndrome, left knee; Translations: [Plica syndrome] 06-19-2022 Episodic Other connective tissue disease (1 source) Synovial plica syndrome of left knee; Translations: [Plica syndrome, left knee] 06-19-2022 Episodic Other lower respiratory disease (8 sources) Cough; Translations: [Cough] 07-04-2018 Episodic Other non-traumatic joint disorders (14 sources) Pain in right knee; Translations: [Right knee pain] 01-26-2022 Episodic Other non-traumatic joint disorders (7 sources) Pain in left knee; Translations: [Pain in joint, lower leg] Episodic Other non-traumatic joint disorders (2 sources) Effusion of joint of left knee; Translations: [Effusion, left knee] 02-08-2023 Episodic Other nutritional; endocrine; and metabolic disorders (7 sources) Liposynovitis prepatellaris; Translations: [Other specified metabolic disorders] 01-26-2022 Chronic Other nutritional; endocrine; and metabolic disorders (1 source) Other specified metabolic disorders; Translations: [Other disorders of lipoid metabolism] Chronic Other nutritional; endocrine; and metabolic disorders (8 sources) Body mass index 40+ - severely obese; Translations: [Morbid (severe) obesity due to excess calories] Onset: 07-02-2017 07-02-2017 Chronic Other screening for suspected conditions (not mental disorders or infectious disease) (9 sources) Patient encounter status; Translations: [Encounter for screening for malignant neoplasm of colon] Onset: 07-22-2017 07-22-2017 Episodic Other upper respiratory disease (8 sources) Seasonal allergic rhinitis; Translations: [Other seasonal allergic rhinitis] 07-04-2018 Chronic Other upper respiratory disease (8 sources) Sneezing; Translations: [Sneezing] 07-04-2018 Episodic Other upper respiratory disease (8 sources) Hoarse; Translations: [Dysphonia] 07-04-2018 Episodic Other upper respiratory disease (8 sources) Nasal congestion; Translations: [Nasal congestion] 07-04-2018 Episodic Other upper respiratory infections (2 sources) Chronic sinusitis, unspecified; Translations: [Unspecified sinusitis (chronic)] 06-13-2022 Chronic Other upper respiratory infections (20 sources) Nasal discharge; Translations: [Postnasal drip] 07-04-2018 Episodic Residual codes; unclassified (8 sources) Sleep apnea; Translations: [Sleep apnea, unspecified] 03-28-2020 Chronic Comment on above: BiPAP 11/7 cm of kailee er Residual codes; unclassified (10 sources) Obstructive sleep apnea syndrome; Translations: [Obstructive sleep apnea (adult) (pediatric)] Onset: 07-02-2017 07-02-2017 Chronic Screening and history of mental health and substance abuse codes (2 sources) Ex-smoker; Translations: [Personal history of nicotine dependence] 12-06-2023 Episodic Past or Other Problems Problem Classification Problem Date Documented Da te Episodic/Chronic Benign neoplasm of uterus (8 sources) Uterine leiomyoma; Translations: [Leiomyoma of uterus, unspecified] Onset: 10-10-2005 Resolved: 08-26-2017 08-26-2017 Episodic Other connective tissue disease (8 sources) Plantar fascial fibromatosis; Translations: [Plantar fascial fibromatosis] Onset: 08-27-2008 08-27-2008 Episodic Other connective tissue disease (8 sources) Pain in limb; Translations: [Pain in unspecified limb] Onset: 09-06-2008 Resolved: 08-26-2017 08-26-2017 Episodic Other female genital disorders (8 sources) Hypertrophy of uterus; Translations: [Hypertrophy of uterus] Onset: 08-09-2011 Resolved: 08-26-2017 08-26-2017 Episodic Other skin disorders (16 sources) Acne; Translations: [Other acne] Onset: 05-29-2006 Resolved: 02-17-2010 02-17-2010 Episodic Other skin disorders (8 sources) Seborrheic keratosis; Translations: [Other seborrheic keratosis] Onset: 08-08-2007 Resolved: 02-17-2010 02-17-2010 Episodic Other skin disorders (8 sources) Changes in skin texture; Translations: [Other skin changes] Onset: 09-12-2012 Resolved: 08-26-2017 08-26-2017 Episodic Prolapse of female genital organs (8 sources) Uterine prolapse; Translations: [Uterovaginal prolapse, unspecified] Onset: 08-09-2011 Resolved: 08-26-2017 08-26-2017 Chronic Sprains and strains (8 sources) Neck sprain; Translations: [Sprain of joints and ligaments of unspecified parts of neck, initial encounter] Onset: 11-21-2005 Resolved: 08-26-2017 08-26-2017 Episodic Viral infection (8 sources) Verruca vulgaris; Translations: [Viral wart, unspecified] Onset: 02-17-2010 Resolved: 02-17-2010 02-17-2010 Episodic Results Test Name Value Interpretation Reference Range Facility Breast imaging reportOrdered By: Rashawn Esposito on 03-04-2025 Study report [facility] Imaging Services [address] [place] [address] SCRN MAMM (CAD)W/BENNY BILAT MR#: [id number] Acct: [id number] Name: JACKIE GUAMAN Rep #: [id number] : 1965 F 60 From: Huseyin Esposito MD PCP: Dr. Hieu Farris MD Status: REG CLI Study:SCRN MAMM (CAD)W/BENNY BILAT Date of Exa m: 03/03/25 Exam# [id number] Ordering Dr: Celina Bacon INSURANCE OFFICE SUPERVISOR-C EXAM: SCRN MAMM (CAD)W/BENNY BILAT DATE: 03/03/2025 CLINICAL HISTORY: F, Age 60 y/o , SCREEN FOR BREAST CANCER No family history. TECHNIQUE: Procedure Code: BISMWCADBTOM Modality: MG Procedure: SCRN MAMM (CAD)W/BENNY BILAT COMPARISON: Prior exam(s) dated March 02, 2024.. FINDINGS: TISSUE DENSITY: There are scattered areas of fibroglandular density. Bilateral Breast Mammographic Findings: No significant masses, calcifications or other abnormalities are identified. Stable small benign-appearing bilateral axillary lymph nodes. No suspicious masses, areas of developing architectural distortion, or suspicious calcifications. There has been no significant interval change. BI/SCRN MAMM (CAD)W/BENNY BILAT IMPRESSION: Stable bilateral screening mammogram. OVERALL FINAL ASSESSMENT BI-RADS 2: BENIGN RECOMMENDATION: Routine annual follow-up in 1 Year A letter with findings and recommendations will be mailed to the patient. Reading Location: [address]: LEIA Bacon; Dr. 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 Hieu Farris MD Status: REG CLI Study: SCRN MAMM (CAD)W/BENNY BILAT Date of Exam: 02/15 01/08 Exam# [id number] Ordering Dr: Celina Bacon EXAM: SCRN MAMM (CAD)W/BENNY BILAT DATE: 03/03/2025 CLINICAL HISTORY: F, Age 60 y/o , SCREEN FOR BREAST CANCER No family history. TECHNIQUE: Procedure Code: BISMWCADBTOM Modality: MG Procedure: SCRN MAMM (CAD)W/BENNY BILAT COMPARISON: Prior exam(s) dated March 02, 2024.. FINDINGS: TISSUE DENSITY: There are scattered areas of fibroglandular density. Bilateral Breast Mammographic Findings: No significant masses, calcifications or other abnormalities are identified. Stable small benign- appearing bilateral axillary lymph nodes. No suspicious masses, areas of developing architectural distortion, or suspicious calcifications. There has been no significant interval change. BI/SCRN MAMM (CAD)W/BENNY BILAT IMPRESSION: Stable bilateral screening mammogram. OVERALL FINAL ASSESSMENT BI-RADS 2: BENIGN RECOMMENDATION: Routine annual follow-up in 1 Year A letter with findings and recommendations will be mailed to the patient. Reading Location: [facility] CC: LEIA Bacon; Dr. Hieu Farris MD Distillery Worker General: Signed Normal [facility] Piler Office Visit Reporton 02-18-2025 Piler Office Visit Report [facility] [address], [address] [place] [address] OFFICE VISIT Date of Service: 02/18/25 MR#: [id number] Acct: [id number] Name: JACKIE GUAMAN Rep #: [id number] : 1965 Provider: LEIA Avila Age/Sex: 60/F Location: [facility] [place] Status: Signed Intake Vital Signs 03/27/24 09:21 02/18/25 13:07 02/18/25 13:08 Height 5 ft 5.25 in 5 ft 5 in 5 ft 5.25 in Weight: 237 lb 7 oz BMI 39.4 BP 123/78 H 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 Is patient in pain?: No Allergies naproxen (From Aleve) Adverse Reaction (Intermediate, Verified 02/18/25 13:03) / sulfadiazine Adverse Reaction (Mild, Verified 02/18/25 13:03) / Medications ???Medication ???Instructions ???Recorded ???Confirmed ???Type fluticasone propionate 50 1 spray intranasal BID 06/13/22 History mcg/actuation nasal spray,suspension (Flonase Allergy Relief) lisinopril 40 mg tablet 40 mg PO DAILY 02/08/23 02/18/25 H istory meloxicam 7.5 mg tablet 7.5 mg PO BID PRN pain 1 month #30 03/05/24 02/18/25 Rx tabs doxycycline hyclate 20 mg tablet 20 mg PO BID 02/18/25 02/18/25 His tory Is last menstrual period known: No Post menopausal: Yes Patient : No : No PFSH Medical History Effusion, left knee Plica syndrome, left knee Sleep apnea Sneezing Sore throat Rhinorrhea Post-nasal drainage Nasal congestion Hoarseness Headache Asthma Cough Seasonal allergies Surgical History History of tonsillectomy H/O: hysterectomy Family History Father Cancer Brother Cancer Social History number of children: 2 current occupational status: unemployed sexually active: No Smoking Status: Never smoker second hand exposure: No alcohol intake: current alcohol intake frequency: a few times a week Alcohol type: beer substance use type: does not use caffeine: Yes Type: coffee seatbelt use: always do you feel safe at home: Yes History 2 Elective abortions Hx Para 2 Spontaneous abortions Hx # Term Pregnancies Ectopic pregnancies Hx # Pregnancies Multiple births # of living children 2 Past Pregnancies Del. Date Name GA/Weeks Outcome Route Bth Weight Infant Gen Labor Lgth Anesthesia Del Locatn Provider FOB 12/16/84 edmar 05/21/87 dustin HPI Encounter for routine gynecological examination Details: JACKIE GUAMAN is a 60 year old who presents for annual exam. She reports no issues or concerns today. Last PAP: hyst History of abnormal PAP: no Last mammogram: 2023; normal History of abnormal mammogram: no Colon cancer screenin; normal Other preventative health care screenings: Hieu Farris; PCP ROS Const Constitutional: Denies chills, fatigue, fever(s), headache(s) or weight loss Eyes Eyes: Denies change in vision ENT ENT: Denies dizziness Resp Resp: Denies cough GI GI: Denies abdominal pain, constipation or nausea : Denies difficulty voiding, dysuria, hematuria, nipple discharge, pelvic pain, prolapse symptoms, urinary incontinence, vaginal discharge, vaginal dryness, vaginal odor or vaginal pruritus Skin Skin/Breast: Denies alopecia, rash, breast mass, breast pain, breast skin changes or nipple discharge Neuro Neuro: Denies dizziness Psych Psych: Denies anxiety or depression Endo Endo: Denies cold intolerance, excessive sweating or heat intolerance Exam Const General: cooperative, healthy appearing, no acute distress and well groomed Nutritional Appearance: well nourished Orientation: oriented x3 HENMT Head: normal to inspection and normocephalic Neck Thyroid: thyroid normal Chest Chest palpation inspection: normal inspection of the chest Breast inspection: normal inspection of the breasts and normal inspection of the axillae Breast palpation: normal palpation of the breasts, normal palpation of the axillae and no axillary lymphadenopathy Resp Effort Inspection: normal respiratory effort and able to speak in complete sentences GI Inspection: normal to inspection Palpation: soft and no hepatosplenomegaly External Female Exam: normal external appearance and normal appearance of the urethra Urethra: normal appearance of the urethra Speculum Exam - Vagina: normal appearance of the vagina, normal vaginal discharge, no lesions and nontender Speculum Exam - Cervix: absent Bimanual Exam- Vagina Uterus: normal bimanual exam and uterus absent Bimanual Exam- Adnexa, other: no masses Skin General: no rashes or lesions noted (more content not included)... Normal [facility] JACKIE GUAMAN ([id number]) 1965 F Date Time Provider Department 02/03/25 DENISE MARLOW [facility] During your visit today, we recorded the following information about you: Della Carpio, RN 02/03/2025 2:16 PM Signed Calling, had been on Asmanex, her Insurance would not cover it so she was put on Qvar. Insurance will not cover the Qvar, asking for a rx for Asmanex to go to . Please review and address. Allergies As of Date: 02/03/2025 Noted Allergy Reaction ALEVE (NAPROXEN SODIUM) 08/27/2008 4 - Hives Comments: passed out SULFA (SULFONAMIDE ANTIBIOTICS) 05/28/2005 Date Reviewed: 08/19/2024 Reviewed by: Katie Sandy LPN - Fully Assessed Reason for Visit: Refill Request [94] Order(s):mometasone (ASMANEX HFA) 200 mcg/actuation HFAInhale 2 puffs as instructed two times a day.Disp: 3 eachRfl: 3 Prescriptions as of 02/03/2025 - mometasone (ASMANEX HFA) 200 mcg/actuation HFA Inhale 2 puffs as instructed two times a day. - fluticasone (FLONASE) 50 mcg/actuation nasal spray Use 2 Sprays in each nostril two times a day. - latanoprost (XALATAN) 0.005 % ophthalmic solution Use 1 Drop in both eyes daily at bedtime. - lisinopril (ZESTRIL) 40 mg tablet Take 40 mg by mouth once daily. - albuterol HFA (PROVENTIL HFA, VENTOLIN HFA) 90 mcg/actuation inhaler USE 2 INHALATIONS BY MOUTH EVERY 4 HOURS NEEDED DIRECTED - beclomethasone (QVAR REDIHALER) 80 mcg/actuation inhaler Inhale 2 Puffs as instructed two times a day. - albuterol HFA 90 mcg/actuation HFA Inhale as instructed. - albuterol HFA (PROVENTIL HFA, VENTOLIN HFA) 90 mcg/actuation inhaler Inhale 2 Puffs as instructed every 4 hours as needed. Problem List As Of Date 02/03/2025 Noted Resolved Leiomyoma of uterus, unspecified [D25.9] 10/10/2005 08/26/2017 Sprain of neck [S13.9XXA] 11/21/2005 08/26/2017 Other Acne [L70.8] 05/29/2006 02/17/2010 Other Seborrheic Keratosis [L82.1] 08/08/2007 02/17/2010 PLANTAR FIBROMATOSIS [M72.2] 08/27/2008 Pain in limb [M79.609] 09/06/2008 08/26/2017 Acne: Inflammatory Grade III to IV (papulonodu*02/17/2010 Viral Wart, Unspecified [B07.9] 02/17/2010 02/17/2010 Uterine prolapse without mention of vaginal wal*08/09/2011 08/26/2017 Hypertrophy of uterus [N85.2] 08/09/2011 08/26/2017 Postinflammatory skin changes [R23.8] 09/12/2012 08/26/2017 Obesity, Class III, BMI 40-49.9 (morbid obesity*07/02/2017 ERNESTINA (obstructive sleep apnea) [G47.33] 07/02/2017 Benign hypertension [I10] 07/02/2017 Hyperlipidemia LDL goal <130 [E78.5] 07/03/2017 Encounter for screening for malignant neoplasm *07/22/2017 Mild intermittent asthma, uncomplicated [J45.20]08/26/2017 Prescriptions ordered this encounter Disp Refills Start End ASMANEX HFA 200 MCG/ACTUATION AEROSO* 3 ea* 3 02/03/2025 05/04/2025 Route: INH Sig: Inhale 2 puffs as instructed two times a day. Encounter Status:Closed by DENISE MARLOW on 02/03/25 [facility] CNOVon 08-19-2024 CNOV Office Visit ([facility] ) DANIELLAJACKIE VICTOR ([id number]) 1965 F Date Time Provider Department 08/19/24 3:00 PM DENISE MARLOW [facility] During your visit today, we recorded the following information about you: Pulse Blood pressure Weight 76/minute 125/79 106.4 kg Denise Marlow MD 08/19/2024 4:01 PM [facility] DEPARTMENT OF PULMONARY [facility]ICINE OFFICE VISIT FOLLOW UP 08/19/2024 Patient Name: Jackie Guaman PRIMARY CARE PHYSICIAN: No primary care provider on file. REASON FOR CONSULT: Establish asthma care REFERRING PHYSICIAN: Self My final recommendations will be communicated to the requesting health care provider by way of the shared medical record for internal providers or by letter via US mail for external providers. ASSESSMENT/PLAN 1) Mild intermediate asthma: Spirometry shows no obstruction. FeNO: Normal. Symptoms have improved. No peripheral eosinophilia. RAST and IgE testing have been negative -Continue Qvar 2 puffs twice a day ergillus specific IgE -Continue as needed albuterol HFA, patient has been using albuterol prior to exercise and denies any symptoms -Inhaler technique reviewed and appropriate. -We discussed how to maintain an asthma diary and how to avoid triggers. -Tolerance to inhalers checked. No side effects noted. 2) History of allergies 3) History of ERNESTINA on CPAP 4) Remote Brief Smoking History. Next visit: 12 months Patient instructed to contact me in case of symptoms, imaging and lab results. I discussed the plan in detail with the patient and the patient verbalizes understanding and is in agreement. Denise Marlow MD, Staff, Respiratory [facility] CHIEF COMPLAINT: Chest tightness and cough while exercising. HISTORY OF PRESENT ILLNESS: Jackie Guaman is a 58 year-old lady with past medical history of mild intermittent asthma, ERNESTINA, hypertension and hyperlipidemia. Is here in the clinic to establish care for her. Patient is here for a follow-up appointment. After our last visit patient was able to get Qvar which she is using 2 puffs twice a day. Patient is also using 1 puff of albuterol prior to exercise and with this she states her symptoms are very well-controlled. Denies any wheezing, coughing or dyspnea. No nighttime symptoms Prior encounter 11/2023 Was diagnosed with asthma 10 years ago and was on Asmanex inhaler along with as needed albuterol. When she was diagnosed with asthma, she had symptoms like constant throat clearing and coughing, which improved after starting on inhalers. Patient asthma was well controlled and therefore she quit using her Asmanex. Initially referred to clinic for complaints of chest tightness and coughing, especially when she would work out. The symptoms ongoing for weeks to months. Therefore, she started using her inhalers which seem to improve her symptoms. Has ran out of her Asmanex in the last couple of days. Denies any childhood symptoms of asthma, no family, history of asthma. States that she may have allergies to the environment as she sometimes notices nasal congestion and constant throat clearing from post nasal drip. Patient has a brief remote history of smoking in her teenage years. Has no dogs or pets at home. But her children who live close by bring their dogs to her house, patient has not noticed worsening of her symptoms in the presence of the dogs. 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 Denies any dyspnea at rest, no wheezing. No difficulty with ADLs No hospitalizations or ER visit for breathing or asthma Steroids use: None MMRC Dyspnea Scale: 0. Not troubled by breathlessness except on strenuous exercise Short of breath when hurrying or walking up a slight hill Walks slower than contemporaries on the level because of breathlessness, or has to stop for breath when walking at own pace Stops for breath after about 100 m or after a few minutes on the level Too breathless to leave the house, or breathless when dressing or undressing Social and Personal History: - Smoking: Patient has a brief remote history of smoking in her teenage years. 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 Other Environmental Exposure History: Pets: No birds Asbestos: No significant exposure Silica: No significant exposure Briscoe: No significant exposure Mold: No significant exposure Hot tub: No significant exposure Fumes: No significant exposure Metal dust: No significant exposure Beryllium: No significant exposure Dust: No significant exposure Medications: No relevant exposure for interstitial lung diseases FAMILY HISTORY Problem Relation Age of Onset None Mother Prostate Cancer Fath (more content not included)... Normal [facility] Basic Metabolic Profile (BMP )on 05-13-2024 BUN/CRE 18.1 RATIO Normal 10-20 [facility] Comment on above: Order Comment: Order Date: 10/17/23 Order Info: 0667-1 - BMP Order Info: 67164-9 - LIPID Order Info: 3016-3 - TSH Performed By: #### L 500.4100, L501.9520, L500.2500 #### [facility] [address] [place], [address] CA,Total 9.8 mg/dL Normal 8.5-10.1 [facility] Comment on above: Order Comment: Order Date: 10/17/23 Order Info: 0667-1 - BMP Order Info: 83686-5 - LIPID Order Info: 3016-3 - TSH Performed By: #### L 500.4100, L501.9520, L500.2500 #### [facility] [address] [place], [address] Chloride [Moles/Vol] 108 mmol/L High 98-107 [facility] Comment on above: Order Comment: Order Date: 10/17/23 Order Info: 0667-1 - BMP Order Info: - LIPID Order Info: 3015-08 - TSH Performed By: #### L 500.4100, L501.9520, L500.2500 #### [facility] [address] [place], [address] CO2 [Moles/Vol] 20.0 mmol/L Low 21.0-32.0 [facility] Comment on above: Order Comment: Order Date: 10/17/23 Order Info: 666-06 - BMP Order Info: - LIPID Order Info: 3015-08 - TSH Performed By: #### L 500.4100, L501.9520, L500.2500 #### [facility] [address] [place], [address] Creatinine [Mass/Vol] 0.78 mg/dL Normal 0.55-1.02 [facility] Comment on above: Order Comment: Order Date: 10/17/23 Order Info: 666-06 - BMP Order Info: - LIPID Order Info: 3015-08 - TSH Result Comment: The validity of the calculated GFR GFRAA in patients over 70 years has not been determined. Clinical correlation is essential. Performed By: #### L 500.4100, L501.9520, L500.2500 #### [facility] [address] [place], [address] EST GFR - AA 98 mL/min Normal >60 [facility] Comment on above: Order Comment: Order Date: 10/17/23 Order Info: 666-06 - BMP Order Info: - LIPID Order Info: 3015-08 - TSH Result Comment: Afri can Malian GFR Calc Performed By: #### L 500.4100, L501.9520, L500.2500 #### [facility] [address] [place], [address] GAP 9 Normal 5-15 [facility] Comment on above: Order Comment: Order Date: 10/17/23 Order Info: 666-06 - BMP Order Info: - LIPID Order Info: 3015-08 - TSH Performed By: #### L 500.4100, L501.9520, L500.2500 #### [facility] [address] [place], [address] GFR/1.73 sq M.predicted among non-blacks MDRD (S/P/Bld) [Vol rate/Area] 81 mL/min/{1.73_m2} Normal >60 [facility] Comment on above: Order Comment: Order Date: 10/17/23 Order Info: 666-06 - BMP Order Info: - LIPID Order Info: 3015-08 - TSH Result Comment: Non- GFR Calc Performed By: #### L 500.4100, L501.9520, L500.2500 #### [facility] [address] [place], [address] Glucose [Mass/Vol] 114 mg/dL High 74-[address] [facility] Comment on above: Order Comment: Order Date: 10/17/23 Order Info: 666-06 - BMP Order Info: - LIPID Order Info: 3015-08 - TSH Result Comment: Fast ing Glucose result from 100 to 125 mg/dL suggests IMPAIRED HOMEOSTASIS per A.D.A. criteria. Performed By: #### L 500.4100, L501.9520, L500.2500 #### [facility] [address] [place], [address] Potassium [Moles/Vol] 4.1 mmol/L Normal 3.5-5.1 [facility] Comment on above: Order Comment: Order Date: 10/17/23 Order Info: 666-06 - BMP Order Info: - LIPID Order Info: 3015-08 - TSH Performed By: #### L 500.4100, L501.9520, L500.2500 #### [facility] [address] [place], [address] Sodium [Moles/Vol] 136 mmol/L Normal 136-[address] [facility] Comment on above: Order Comment: Order Date: 10/17/23 Order Info: 666-06 - BMP Order Info: - LIPID Order Info: 3 - TSH Performed By: #### L 500.4100, L501.9520, L500.2500 #### [facility] [address] [place], [address] Urea nitrogen [Mass/Vol] 14 mg/dL Normal 7-18 [facility] Comment on above: Order Comment: Order Date: 10/17/23 Order Info: 666-06 - BMP Order Info: - LIPID Order Info: 3015-08 - TSH Performed By: #### L 500.4100, L501.9520, L500.2500 #### [facility] [address] [place], [address] Lipid Profileon 05-13-2024 Cholesterol [Mass/Vol] 272 mg/dL High 200 [facility] Comment on above: Order Comment: Order Date: 10/17/23 Order Info: 666-06 - BMP Order Info: - LIPID Order Info: 3015-08 - TSH Result Comment: <200 mg/dL Desirable 200-240 mg/dL Borderline >240 mg/dL High Risk Performed By: #### L 500.4100, L501.9520, L500.2500 #### [facility] [address] [place], [address] Cholesterol in HDL [Mass/Vol] 65 mg/dL Normal [facility] Comment on above: Order Comment: Order Date: 10/17/23 Order Info: 666-06 - BMP Order Info: - LIPID Order Info: 3 - TSH Result Comment: The drugs N-Acetylcysteine and Metamizole may falsely depress this assay. Reference Range HDL <40 mg/dL Low HDL Cholesterol HDL >or= 60 mg/dL High HDL Cholesterol Performed By: #### L 500.4100, L501.9520, L500.2500 #### [facility] [address] [place], [address] Cholesterol in LDL [Mass/Vol] 170 mg/dL High 0-130 [facility] Comment on above: Order Comment: Order Date: 10/17/23 Order Info: 666-06 - BMP Order Info: - LIPID Order Info: 3 - TSH Performed By: #### L 500.4100, L501.9520, L500.2500 #### [facility] [address] [place], [address] Cholesterol in VLDL [Mass/Vol] 37 mg/dL Normal 5-40 [facility] Comment on above: Order Comment: Order Date: 10/17/23 Order Info: 666-06 - BMP Order Info: - LIPID Order Info: 3015-08 - TSH Performed By: #### L 500.4100, L501.9520, L500.2500 #### [facility] [address] [place], [address] Triglyceride [Mass/Vol] 186 mg/dL Normal [facility] Comment on above: Order Comment: Order Date: 10/17/23 Order Info: 666-06 - BMP Order Info: - LIPID Order Info: 3015-08 - TSH Result Comment: The drugs N-Acetylcysteine and Metamizole may falsely depress this assay. Serum Triglycerides Reference Interval Normal <150 mg/dL Borderline high 150 - 199 mg/dL High 200 - 499 mg/dL Very High > or = 500 mg/dL Performed By: #### L 500.4100, L501.9520, L500.2500 #### [facility] [address] [place], [address] Thyroid Stim Hormone (TSH)on 05-13-2024 TSH 2.220 uIU/mL Normal 0.358-3.740 [facility] Comment on above: Order Comment: Order Date: 10/17/23 Order Info: 666-06 - BMP Order Info: - LIPID Order Info: 3015-08 - TSH Performed By: #### L 500.4100, L501.9520, L500.2500 #### [facility] [address] [place], [address] Knee 4 or More Viewson 03-30 Knee 4 or More Views [facility] [address] [place] [address] Knee 4 or More Views MR#: [id number] Acct: [id number] Name: JACKIE GUAMAN Rep #: [id number] : 1965 F 59 From: Nawaf Herrera MD PCP: Dr. Hieu Farris MD Status: DEP AMB Study: Knee 4 or More Views Date of Exam: 03/30/24 Exam# [id number] Ordering Dr: [place] [id number] STUDY: X-RAY - LEFT KNEE REASON FOR EXAM: Female, 59 years old. Pain. TECHNIQUE: 4 views of the left knee. COMPARISON: Left knee radiographs dated 01/26/2022. FINDINGS: Normal visualized distal femur. Normal visualized proximal tibia and fibula. Normal proximal tibiofibular articulation. There is no demonstrated fracture. There is moderate degenerative arthrosis of the medial femorotibial compartment with moderate joint space narrowing. There is mild degenerative arthrosis of the lateral femorotibial compartment. There is mild degenerative arthrosis of the patellofemoral articulation. The soft tissue structures are unremarkable. RAD/Knee 4 or More Views IMPRESSION: Tricompartment degenerative arthrosis, most pronounced in the medial femorotibial compartment. No demonstrated fracture. Electronically Signed: Nawaf Herrera MD at 11:09 EDT Reading Location ID and State: [facility] / [place] , Service support , CC: Dr. 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 Gerald calixto MD Age/Sex: 59/F [place] [facility] Status: Signed Intake Vital Signs 03/27/24 09:21 Height 5 ft 5.25 in Intake Visit Reasons: LEFT KNEE Accompanied by: Self Is patient in pain?: Yes Pain scale (1-10): 3 Allergies naproxen (From Aleve) Adverse Reaction (Intermediate, Verified 03/30/24 09:33) / sulfadiazine Adverse Reaction (Mild, Verified 03/30/24 09:33) / Medications ???Medication ???Instructions ???Recorded ???Confirmed ???Type multivitamin 1 ea PO DAILY 06/27/18 03/30/24 History fluticasone propionate 50 1 spray intranasal BID 06/13/22 03/30/24 History mcg/actuation nasal spray,suspension (Flonase Allergy Relief) lisinopril 40 mg tablet 40 mg PO DAILY 02/08/23 03/30/24 History oxybutynin chloride 15 mg 15 mg PO DAILY 02/08/23 03/30/24 History tablet,extended release 24 hr meloxicam 7.5 mg tablet 7.5 mg PO BID PRN pain 1 month #30 03/05/24 03/30/24 Rx tabs PFSH Medical History Effusion, left knee Plica syndrome, left knee Sleep apnea Sneezing Sore throat Rhinorrhea Post-nasal drainage Nasal congestion Hoarseness Headache Asthma Cough Seasonal allergies Surgical History History of tonsillectomy H/O: hysterectomy Family History Father Cancer Brother Cancer Social History (Reviewed 03/30/24 @ 09:34 by Venita Mireles number of children: 2 current occupational status: unemployed sexually active: No Smoking Status: Never smoker second hand exposure: No alcohol intake: current alcohol intake frequency: a few times a week Alcohol type: beer substance use type: does not use caffeine: Yes Type: coffee seatbelt use: always do you feel safe at home: Yes HPI LEFT KNEE Details: This documentation accurately reflects the service provided and the decisions made by me, Dr. Gerald Boykin MD 03/30/24 0931. Part of today???s visit was documented by [ ], acting as scribe. JACKIE GUAMAN is a 59 year old F here today for follow-up left knee pain. The patient has had cortisone injections as well as viscosupplementation injections in the past. The Supartz injections seem to help better. The patient had Supartz injection last series was about a month ago really only helped for couple days and the pain has returned its mostly on the lateral aspect of the knee. The patient is unsure about proceeding with a total joint. Ortho Exam General General: Yes no acute distress Neurologic: Yes alert and Yes oriented x3 Psychologic: Yes reasonable and appropriate Left Knee Skin/Wound: Yes CDI, No ecchymosis, No erythema and No swelling Knee ROM: Yes ROM-Flexion 0-140 Examination: No med jt line tenderness, Yes Lat jt line tenderness, No TTP inf pole patella, Yes Crepitus and Yes Pain with flexion Quad Atrophy: No Patellar Tilt Normal: Yes Supplemental Info X-rays 4 views left knee obtained today this demonstrates very slight progression of the joint space narrowing and osteoarthritic changes of the medial and patellofemoral compartments. 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 Unfortunately the viscosupplementation injection was largely ineffective for the patient they tried Supartz could try different brand like Euflexxa. Could also try cortisone injections physical therapy anti- inflammatories or knee arthroplasty surgery. The patient is happy to carry on with just oral meloxicam and will follow-up as needed. They understood no further questions or concerns. Orders: Orders Knee 4 or More Views Today M22.42 - Chondromalacia patellae, left knee 03/30/24 1008 Date Gerald Boykin MD Cosigner Signature: Date (if applicable) CC: Normal [facility] [employer] GROUPon 024 Chicken feather IgE Qn (S) <0.35 Normal <0.35 [facility] Comment on above: Order Comment: Speci men Type: BLOOD SPECIMEN Ordering Facility: [facility] Address: [address] [place] [address] Performed By: #### A NIMLS #### [facility] [place] [id number] [address] [place] [address] Chicken feather IgE RAST class (S) Class 0 Normal Class 0 [facility] Comment on above: Order Comment: Speci men Type: BLOOD SPECIMEN Ordering Facility: [facility] Address: [address] [place] [address] Performed By: #### A NIMLS #### [facility] [place] [id number] [address] [place] [address] [place] Cow epithelium IgE Qn (S) <0.35 Normal <0.35 [facility] Comment on above: Order Comment: Speci men Type: BLOOD SPECIMEN Ordering Facility: [facility] Address: [address] [place] [address] Performed By: #### A NIMLS #### [facility] [place] [id number] [address] [place] [address] [place] Cow epithelium IgE RAST class (S) Class 0 Normal Class 0 [facility] Comment on above: Order Comment: Speci men Type: BLOOD SPECIMEN Ordering Facility: [facility] Address: [address] [place] [address] Performed By: #### A NIMLS #### [facility] CLIA [id number] [address] [place] [address] [place] Goose feather IgE Qn (S) <0.35 Normal <0.35 [facility] Comment on above: Order Comment: Speci men Type: BLOOD SPECIMEN Ordering Facility: [facility] Address: [address] [place] [address] Performed By: #### A NIMLS #### [facility] CLIA [id number] [address] [place] [address] [place] Goose feather IgE RAST class (S) Class 0 Normal Class 0 [facility] Comment on above: Order Comment: Speci men Type: BLOOD SPECIMEN Ordering Facility: [facility] Address: [address] [place] [address] Performed By: #### A NIMLS #### [facility] CLIA [id number] [address] [place] [address] [place] Horse dander IgE Qn (S) <0.35 Normal <0.35 [facility] Comment on above: Order Comment: Speci men Type: BLOOD SPECIMEN Ordering Facility: [facility] Address: [address] [place] [address] Performed By: #### A NIMLS #### [facility] CLIA [id number] [address] [place] [address] [place] Horse dander IgE RAST class (S) Class 0 Normal Class 0 [facility] Comment on above: Order Comment: Speci men Type: BLOOD SPECIMEN Ordering Facility: [facility] Address: [address] [place] [address] Performed By: #### A NIMLS #### [facility] CLIA [id number] [address] [place] [address] [place] [employer]on 12-05 A. alternata IgE Qn (S) <0.35 Normal <0.35 M [facility] Comment on above: Order Comment: Speci men Type: BLOOD SPECIMEN Ordering Facility: [facility] Address: [address] [place] [address] Performed By: #### I NHALE #### [facility] CLIA [id number] [address] [place] [address] [place] A. alternata IgE RAST class (S) Class 0 Normal Class 0 [facility] Comment on above: Order Comment: Speci men Type: BLOOD SPECIMEN Ordering Facility: [facility] Address: [address] [place] [address] Performed By: #### I NHALE #### [facility] CLIA [id number] [address] [place] [address] [place] A. fumigatus IgE Qn (S) <0.35 Normal <0.35 [facility] Comment on above: Order Comment: Speci men Type: BLOOD SPECIMEN Ordering Facility: [facility] Address: [address] [place] [address] Performed By: #### I NHALE #### [facility] CLIA [id number] [address] [place] [address] [place] A. fumigatus IgE RAST class (S) Class 0 Normal Class 0 [facility] Comment on above: Order Comment: Speci men Type: BLOOD SPECIMEN Ordering Facility: [facility] Address: [address] [place] [address] Performed By: #### I NHALE #### [facility] CLIA [id number] [address] [place] [address] [place] Malian house dust mite IgE Qn (S) <0.35 Normal <0.35 [facility] Comment on above: Order Comment: Speci men Type: BLOOD SPECIMEN Ordering Facility: [facility] Address: [address] [place] [address] Performed By: #### I NHALE #### [facility] CLIA [id number] [facility] [place] [address] [place] Malian house dust mite IgE RAST class (S) Class 0 Normal Class 0 [facility] Comment on above: Order Comment: Speci men Type: BLOOD SPECIMEN Ordering Facility: [facility] Address: [address] [place] [address] Performed By: #### I NHALE #### [facility] CLIA [id number] [address] [place] [address] [place] Boxelder IgE Qn (S) <0.35 Normal <0.35 [facility] Comment on above: Order Comment: Speci men Type: BLOOD SPECIMEN Ordering Facility: [facility] Address: [address] [place] [address] Performed By: #### I NHALE #### [facility] CLIA [id number] [address] [place] [address] [place] Boxelder IgE RAST class (S) Class 0 Normal Class 0 [facility] Comment on above: Order Comment: Speci men Type: BLOOD SPECIMEN Ordering Facility: [facility] Address: [address] [place] [address] Performed By: #### I NHALE #### [facility] CLIA [id number] [address] [place] [address] [place] [facility] [place] C. herbarum IgE Qn (S) <0.35 Normal <0.35 [facility] Comment on above: Order Comment: Speci men Type: BLOOD SPECIMEN Ordering Facility: [facility] Address: [address] [place] [address] Performed By: #### I NHALE #### [facility] CLIA [id number] [address] [place] [address] [place] C. herbarum IgE RAST class (S) Class 0 Normal Class 0 [facility] Comment on above: Order Comment: Speci men Type: BLOOD SPECIMEN Ordering Facility: [facility] Address: [address] [place] [address] Performed By: #### I NHALE #### [facility] CLIA [id number] [address] [place] [address] [place] Cat dander IgE Qn (S) <0.35 Normal <0.35 [facility] Comment on above: Order Comment: Speci men Type: BLOOD SPECIMEN Ordering Facility: [facility] Address: [address] [place] [address] Performed By: #### I NHALE #### [facility] CLIA [id number] [address] [place] [address] [place] Cat dander IgE RAST class (S) Class 0 Normal Class 0 [facility] Comment on above: Order Comment: Speci men Type: BLOOD SPECIMEN Ordering Facility: [facility] Address: [address] [place] [address] Performed By: #### I NHALE #### [facility] CLIA [id number] [address] [place] [address] [place] Common Ragweed IgE Qn (S) <0.35 Normal <0.35 [facility] Comment on above: Order Comment: Speci men Type: BLOOD SPECIMEN Ordering Facility: [facility] Address: [address] [place] [address] Performed By: #### I NHALE #### [facility] CLIA [id number] [address] [place] [address] [place] Common Ragweed IgE RAST class (S) Class 0 Normal Class 0 [facility] Comment on above: Order Comment: Speci men Type: BLOOD SPECIMEN Ordering Facility: [facility] Address: [address] [place] [address] Performed By: #### I NHALE #### [facility] CLIA [id number] [address] [place] [address] [place] Dog dander IgE Qn (S) <0.35 Normal <0.35 [facility] Comment on above: Order Comment: Speci men Type: BLOOD SPECIMEN Ordering Facility: [facility] Address: [address] [place] [address] Performed By: #### I NHALE #### [facility] CLIA [id number] [address] [place] [address] [place] Dog dander IgE RAST class (S) Class 0 Normal Class 0 [facility] Comment on above: Order Comment: Speci men Type: BLOOD SPECIMEN Ordering Facility: [facility] Address: [address] [place] [address] Performed By: #### I NHALE #### [facility] CLIA [id number] [address] [place] [address] [place] Montserratian plantain IgE Qn (S) <0.35 Normal <0.35 [facility] Comment on above: Order Comment: Speci men Type: BLOOD SPECIMEN Ordering Facility: [facility] Address: [address] [place] [address] Performed By: #### I NHALE #### [facility] CLIA [id number] [address] [place] [address] [place] Montserratian plantain IgE RAST class (S) Class 0 Normal Class 0 [facility] Comment on above: Order Comment: Speci men Type: BLOOD SPECIMEN Ordering Facility: [facility] Address: [address] [place] [address] Performed By: #### I NHALE #### [facility] CLIA [id number] [address] [place] [address] [place] Goosefoot IgE Qn (S) <0.35 Normal <0.35 [facility] Comment on above: Order Comment: Speci men Type: BLOOD SPECIMEN Ordering Facility: [facility] Address: [address] [place] [address] Performed By: #### I NHALE #### [facility] CLIA [id number] [address] [place] [address] [place] Goosefoot IgE RAST class (S) Class 0 Normal Class 0 [facility] Comment on above: Order Comment: Speci men Type: BLOOD SPECIMEN Ordering Facility: [facility] Address: [address] [place] [address] Performed By: #### I NHALE #### [facility] CLIA [id number] [address] [place] [address] [place] House dust Sharon Carmen IgE Qn (S) <0.35 Normal <0.35 [facility] Comment on above: Order Comment: Speci men Type: BLOOD SPECIMEN Ordering Facility: [facility] Address: [address] [place] [address] Performed By: #### I NHALE #### [facility] CLIA [id number] [address] [place] [address] [place] House dust IgE RAST class (S) Class 0 Normal Class 0 [facility] Comment on above: Order Comment: Speci men Type: BLOOD SPECIMEN Ordering Facility: [facility] Address: [address] [place] [address] Performed By: #### I NHALE #### [facility] CLIA [id number] [address] [place] [address] [place] blue grass IgE Qn (S) <0.35 Normal <0.35 [facility] Comment on above: Order Comment: Speci men Type: BLOOD SPECIMEN Ordering Facility: [facility] Address: [address] [place] [address] Performed By: #### I NHALE #### [facility] CLIA [id number] [address] [place] [address] [place] blue grass IgE RAST class (S) Class 0 Normal Class 0 [facility] Comment on above: Order Comment: Speci men Type: BLOOD SPECIMEN Ordering Facility: [facility] Address: [address] [place] [address] Performed By: #### I NHALE #### [facility] CLIA [id number] [address] [place] [address] [place] [facility] [place] P. notatum IgE Qn (S) <0.35 Normal <0.35 [facility] Comment on above: Order Comment: Speci men Type: BLOOD SPECIMEN Ordering Facility: [facility] Address: [address] [place] [address] Performed By: #### I NHALE #### [facility] CLIA [id number] [address] [place] [address] [place] P. notatum IgE RAST class (S) Class 0 Normal Class 0 [facility] Comment on above: Order Comment: Speci men Type: BLOOD SPECIMEN Ordering Facility: [facility] Address: [address] [place] [address] Performed By: #### I NHALE #### [facility] CLIA [id number] [address] [place] [address] [place] Pelon IgE Qn (S) <0.35 Normal <0.35 [facility] Comment on above: Order Comment: Speci men Type: BLOOD SPECIMEN Ordering Facility: [facility] Address: [address] [place] [address] Performed By: #### I NHALE #### [facility] CLIA [id number] [address] [place] [address] [place] Pelon IgE RAST class (S) Class 0 Normal Class 0 [facility] Comment on above: Order Comment: Speci men Type: BLOOD SPECIMEN Ordering Facility: [facility] Address: [address] [place] [address] Performed By: #### I NHALE #### [facility] CLIA [id number] [address] [place] [address] [place] IgE Qn (S) <0.35 Normal <0.35 [facility] Comment on above: Order Comment: Speci men Type: BLOOD SPECIMEN Ordering Facility: [facility] Address: [address] [place] [address] Performed By: #### I NHALE #### [facility] CLIA [id number] [address] [place] [address] [place] IgE RAST class (S) Class 0 Normal Class 0 [facility] Comment on above: Order Comment: Speci men Type: BLOOD SPECIMEN Ordering Facility: [facility] Address: [address] [place] [address] Performed By: #### I NHALE #### [facility] CLIA [id number] [address] [place] [address] [place] CBC W Auto Differential pane l (Bld)on 12-06-2023 Basophils (Bld) [#/Vol] 0.05 10*3/uL [facility] Basophils/100 WBC (Bld) 0.8 % [facility] Differential cell count method Nom (Bld) Auto [facility] Eosinophils (Bld) [#/Vol] 0.17 10*3/uL [facility] Eosinophils/100 WBC (Bld) 2.6 % [facility] Erythrocyte distribution width (RBC) [Ratio] 12.3 % 11.5 - 15.0 % [facility] Hematocrit (Bld) [Volume fraction] 40.3 % 36.0 - 46.0 % [facility] Hemoglobin (Bld) [Mass/Vol] 13.9 g/dL 11.5 - 15.5 g/dL [facility] Immature granulocytes (Bld) [#/Vol] 0.03 10*3/uL [facility] Immature granulocytes/100 WBC (Bld) 0.5 % [facility] Interpretation and review of laboratory results Abnormal [facility] Lymphocytes (Bld) [#/Vol] 1.76 10*3/uL [facility] Lymphocytes/100 WBC (Bld) 27.1 % [facility] MCH (RBC) [Entitic mass] 34.1 pg High 26.0 - 34.0 pg [facility] MCHC (RBC) [Mass/Vol] 34.5 g/dL 30.5 - 36.0 g/dL [facility] MCV (RBC) [Entitic vol] 98.8 fL 80.0 - 100.0 fL [facility] Monocytes (Bld) [#/Vol] 0.42 10*3/[facility] Monocytes/100 WBC (Bld) 6.5 % [facility] Neutrophils (Bld) [#/Vol] 4.06 10*3/uL [facility] Neutrophils/100 WBC (Bld) 62.5 % [facility] Nucleated RBC (Bld) [#/Vol] NINF [facility] Nucleated RBC/100 WBC (Bld) [Ratio] 0.0 % /100 WBC [facility] Platelet mean volume (Bld) [Entitic vol] 9.1 fL 9.0 - 12.7 fL [facility] Platelets (Bld) [#/Vol] 287 10*3/uL [facility] RBC (Bld) [#/Vol] 4.08 10*6/uL 3.90 - 5.2 0 m/uL [facility] WBC (Bld) [#/Vol] 6.49 10*3/uL [facility] Basophils (Bld) [#/Vol] 0.05 10*3/uL Normal <0.11 [facility] Comment on above: Order Comment: Speci men Type: BLOOD SPECIMEN Ordering Facility: [facility] Address: [address] [place] [address] Performed By: #### 5 7021-8 #### [facility] CLIA [id number] [address] [place] [facility] Basophils/100 WBC (Bld) 0.8 % Normal [facility] Comment on above: Order Comment: Speci men Type: BLOOD SPECIMEN Ordering Facility: [facility] Address: [address] [place] [address] Performed By: #### 5 7021-8 #### [facility] CLIA [id number] [address] [place] Differential cell count method Nom (Bld) Auto Normal [facility] Comment on above: Order Comment: Speci men Type: BLOOD SPECIMEN Ordering Facility: [facility] Address: [address] [place] [address] Performed By: #### 5 7021-8 #### [facility] CLIA [id number] [address] [place] [address] [place] Eosinophils (Bld) [#/Vol] 0.17 10*3/uL Normal <0.46 [facility] Comment on above: Order Comment: Speci men Type: BLOOD SPECIMEN Ordering Facility: [facility] Address: [address] [place] [address] Performed By: #### 5 7021-8 #### [facility] CLIA [id number] [address] [place] Eosinophils/100 WBC (Bld) 2.6 % Normal [facility] Comment on above: Order Comment: Speci men Type: BLOOD SPECIMEN Ordering Facility: [facility] Address: [address] [place] [address] Performed By: #### 5 7021-8 #### [facility] CLIA [id number] [address] [place] Erythrocyte distribution width (RBC) [Ratio] 12.3 % Normal 11.5-15.0 [facility] Comment on above: Order Comment: Speci men Type: BLOOD SPECIMEN Ordering Facility: [facility] Address: [address] [place] [address] Performed By: #### 5 7021-8 #### [facility] CLIA [id number] [address] Hematocrit (Bld) [Volume fraction] 40.3 % Normal 36.0-46.0 [facility] Comment on above: Order Comment: Speci men Type: BLOOD SPECIMEN Ordering Facility: [facility] Address: [address] [place] [address] Performed By: #### 5 7021-8 #### [facility] CLIA [id number] [address] [place] [address] [place] Hemoglobin (Bld) [Mass/Vol] 13.9 g/dL Normal 11.5-15.5 [facility] Comment on above: Order Comment: Speci men Type: BLOOD SPECIMEN Ordering Facility: [facility] Address: [address] [place] [address] Performed By: #### 5 7021-8 #### [facility] CLIA [id number] [address] [place] Immature granulocytes (Bld) [#/Vol] 0.03 10*3/uL Normal <0.10 [facility] Comment on above: Order Comment: Speci men Type: BLOOD SPECIMEN Ordering Facility: [facility] Address: [address] [place] [address] Performed By: #### 5 7021-8 #### [facility] CLIA [id number] [address] [place] [address] [place] Immature granulocytes/100 WBC (Bld) 0.5 % Normal [facility] Comment on above: Order Comment: Speci men Type: BLOOD SPECIMEN Ordering Facility: [facility] Address: [address] [place] [address] Performed By: #### 5 7021-8 #### [facility] CLIA [id number] [address] [place] Lymphocytes (Bld) [#/Vol] 1.76 10*3/uL Normal 1.00-4.00 [facility] Comment on above: Order Comment: Speci men Type: BLOOD SPECIMEN Ordering Facility: [facility] Address: [address] [place] [address] Performed By: #### 5 7021-8 #### [facility] CLIA [id number] [address] Lymphocytes/100 WBC (Bld) 27.1 % Normal [facility] Comment on above: Order Comment: Speci men Type: BLOOD SPECIMEN Ordering Facility: [facility] Address: [address] [place] [address] Performed By: #### 5 7021-8 #### [facility] CLIA [id number] [address] [place] [address] [place] MCH (RBC) [Entitic mass] 34.1 pg High 26.0-34.0 [facility] Comment on above: Order Comment: Speci men Type: BLOOD SPECIMEN Ordering Facility: [facility] Address: [address] [place] [address] Performed By: #### 5 7021-8 #### [facility] CLIA [id number] [address] [place] [address] [place] MCHC (RBC) [Mass/Vol] 34.5 g/dL Normal 30.5-36.0 [facility] Comment on above: Order Comment: Speci men Type: BLOOD SPECIMEN Ordering Facility: [facility] Address: [address] [place] [address] Performed By: #### 5 7021-8 #### [facility] CLIA [id number] [address] [place] MCV (RBC) [Entitic vol] 98.8 fL Normal 80.0-100.0 [facility] Comment on above: Order Comment: Speci men Type: BLOOD SPECIMEN Ordering Facility: [facility] Address: [address] [place] [address] Performed By: #### 5 7021-8 #### [facility] CLIA [id number] [address] [place] [address] [place] Monocytes (Bld) [#/Vol] 0.42 10*3/uL Normal <0.87 [facility] Comment on above: Order Comment: Speci men Type: BLOOD SPECIMEN Ordering Facility: [facility] Address: [address] [place] [address] Performed By: #### 5 7021-8 #### [facility] CLIA [id number] [address] Monocytes/100 WBC (Bld) 6.5 % Normal [facility] Comment on above: Order Comment: Speci men Type: BLOOD SPECIMEN Ordering Facility: [facility] Address: [address] [place] [address] Performed By: #### 5 7021-8 #### [facility] CLIA [id number] [address] [place] [address] [place] Neutrophils (Bld) [#/Vol] 4.06 10*3/uL Normal 1.45-7.50 [facility] Comment on above: Order Comment: Speci men Type: BLOOD SPECIMEN Ordering Facility: [facility] Address: [address] [place] [address] Performed By: #### 5 7021-8 #### [facility] CLIA [id number] [address] [place] [address] [place] Neutrophils/100 WBC (Bld) 62.5 % Normal [facility] Comment on above: Order Comment: Speci men Type: BLOOD SPECIMEN Ordering Facility: [facility] Address: [address] [place] [address] Performed By: #### 5 7021-8 #### [facility] CLIA [id number] [address] [place] [address] [place] Nucleated RBC (Bld) [#/Vol] 10*3/uL Normal <0.01 [facility] Comment on above: Order Comment: Speci men Type: BLOOD SPECIMEN Ordering Facility: [facility] Address: [address] [place] [address] Performed By: #### 5 7021-8 #### [facility] CLIA [id number] [address] [place] Nucleated RBC/100 WBC (Bld) [Ratio] 0.0 /100 WBC Normal [facility] Comment on above: Order Comment: Speci men Type: BLOOD SPECIMEN Ordering Facility: [facility] Address: [address] [place] [address] Performed By: #### 5 7021-8 #### [facility] CLIA [id number] [address] [place] Platelet mean volume (Bld) [Entitic vol] 9.1 fL Normal 9.0-12.7 [facility] Comment on above: Order Comment: Speci men Type: BLOOD SPECIMEN Ordering Facility: [facility] Address: [address] [place] [address] Performed By: #### 5 7021-8 #### [facility] CLIA [id number] [address] [place] [address] [place] Platelets (Bld) [#/Vol] 287 10*3/uL Normal 150-400 [facility] Comment on above: Order Comment: Speci men Type: BLOOD SPECIMEN Ordering Facility: [facility] Address: [address] [place] [address] Performed By: #### 5 7021-8 #### [facility] CLIA [id number] [address] [place] [address] [place] RBC (Bld) [#/Vol] 4.08 10*6/uL Normal 3.90-5.20 [facility] Comment on above: Order Comment: Pattie powell Type: BLOOD SPECIMEN Ordering Facility: [facility] Address: [address] [place] [address] Performed By: #### 5 7021-8 #### [facility] CLIA [id number] [address] [place] [address] [place] WBC (Bld) [#/Vol] 6.49 10*3/uL Normal 3.70-11.00 [facility] Comment on above: Order Comment: Pattie powell Type: BLOOD SPECIMEN Ordering Facility: [facility] Address: [address] [place] [address] Performed By: #### 5 7021-8 #### [facility] CLIA [id number] [address] [place] [address] [place] IgE SerPl-aCncon 12-06-2023 IgE Qn 22.6 kU/l Normal <114.0 [facility] Comment on above: Order Comment: Pattie powell Type: BLOOD SPECIMEN Ordering Facility: [facility] Address: [address] [place] [address] Performed By: #### 1 9113-0 #### [facility] [facility] CLIA [id number] [address] [place], [place] [address]K [id number] [address] [place] NITRIC OXIDE, EXHALEDon 06-2 Jin Corcoran, WATER SANDER 12/06/2023 10:49 AM RESPIRATORY THERAPY ORAL EXHALED NITRIC OXIDE SERVICE DATE: 12/06/2023 SERVICE TIME: 10:49 AM Oral Exhaled Nitric Oxide measurement: 18.0 (ppb) Normal: Adult 5-20 ppb, pediatric (<12 years) 5-15 ppb High Normal / Increased: Adult 20-35 ppb, pediatric (<12 years) 15-25 ppb Moderately raised exhaled Nitric Oxide may indicate underlying inflammation, but note that: Cold and influenza can raise exhaled Nitric Oxide and some patients have higher baseline exhaled Nitric Oxide levels than others. High: Adult >35 ppb, pediatric (<12 years) >25 ppb Indicative of ongoing eosinophilic inflammation. Symptomatic patient likely to respond to steroids. Possible causes (if already on steroids): Poor compliance, recent allergen exposure, steroid dose inadequate, and steroid resistance. Note that not all patients with high exhaled nitric oxide levels display symptoms. Oral Exhaled Nitric Oxide measurement (Previous Encounters) Test Date Oral Exhaled Nitric Oxide (ppb) 12/06/2023 18.0 NAME: Jin Corcoran RRT PATIENT NAME: Jackie Guaman DATE: December 06, 2023 TIME: 10:49 AM [facility] SPIROMETRY - BASELINE AND PO ST DILATORon 12-06-2023 [id number]% POST (L/S) 3.40 L/S [facility] [id number]% PRE (L/S) 3.07 L/S [facility] FEV1 PRE (L) 2.79 L [facility] FEV1/FVC POST (%) 85 % [facility]1/[facility] PRE (%) 82 % [facility] FEV1_POST (L) 2.84 L [facility] FVC POST (L) 3.35 L [facility] FVC PRE (L) 3.42 L [facility] PEF POST (L/S) 6.68 L/S [facility] PEF PRE (L/S) 7.18 L/S [facility] ing [address] [place] [address] Test Date: 2023-12-06 Pat Name: JACKIE GUAMAN Department: Room: Gender: Female Chef De Froid: : 1965 Requested By: Order Number: [id number] Reading MD: Marck Welch MD Interpretive Statements Current ATS/ERS acceptability and repeatability standards for spirometry met. Start of test and EOFE criteria met. 2 puffs Albuterol (180 mcg) delivered by MDI via holding chamber. HR pre = 68/min, HR post = 66/min. Medications and Allergies were reviewed for possible drug interactions per policy. No contraindications or sensitivities were noted. Meds taken: Asmanex 26 hours before testing. / LF IMPRESSION: Spirometry is normal. There is no significant bronchodilator response. Electronically Signed On 12-06-2023 11:29:18 EDT by Markc Welch MD ID: [id number] Name: JACKIE GUAMAN Race: White Ht: 63.62 in Wt: 235.89 lbs Age: 58 Gender: Female : 1965 Dx: Unspecified asthma, uncomplicated Smoking Hx: Non-smoker Doctor: DENISE MARLOW Test Date: 12/06/2023 Site: [facility] Tech: Jin Corcoran PRE-BRONCH POST-BRONCH Pre LLN Pred ULN %Pred Post %Pred %Chg SPIROMETRY FVC (L) 3.42 2.14 2.94 3.77 116 3.35 114 -2 FEV1 (L) 2.79 1.69 2.35 2.98 118 2.84 120 2 FEV1/FVC 0.82 0.68 0.80 0.90 101 0.85 105 3 PEF L/s (L/sec) 7.18 4.56 6.25 7.94 114 6.68 106 -7 FEF50 (L/sec) 4.25 1.71 3.32 4.92 128 4.61 139 8 FIF50 (L/sec) 4.42 3.92 -11 FEF50/FIF50 0.96 90-100 1.18 22 FIVC (L) 3.39 3.26 -3 QLY09-34 (L/sec) 3.07 1.16 2.26 3.74 135 3.40 150 10 Time (sec) 7.02 5.79 -17 FET PEF (sec) 0.15 0.15 0 WENDY (L) 0.17 0.12 -29 Vol Extrap % (%) 5 4 -28 Comments: Current ATS/ERS acceptability and repeatability standards for spirometry met. Start of test and EOFE criteria met. 2 puffs Albuterol (180 mcg) delivered by MDI via holding chamber. HR pre = 68/min, HR post = 66/min. Medications and Allergies were reviewed for possible drug interactions per policy. No contraindications or sensitivities were noted. Meds taken: Asmanex 26 hours before testing. / LF PULMONARY FUNCTION LAB [facility] Absolute lymphocyte countOrd ered By: Alex Farris on 01-16-2023 Lymphocytes Auto (Unsp spec) [#/Vol] 1.73 10*3/uL 0.83-4.51 [facility] Basophil percentageOrdered B y: Alex Farris on 01-16-2023 Basophil percentage < 0.2 AI 0.0-0.9 [facility] Comment on above: Performed at: - L [address] [id number] Director: Francesco Vargas PhD, Phone: [phone] Basophils/100 WBC (Bld) 0.9 % 0-1 [facility] [place] [facility] Eosinophils/100 WBC (Bld) 0.0 % 0-5 [facility] Neutrophils (Bld) [#/Vol] 4.3 10*3/uL 2.0-7.7 [facility] Neutrophils/100 WBC (Bld) 64.9 % 47-70 [facility] WBC (Bld) [#/Vol] 6.5 10*3/uL 4.4-11.[address] [facility] Bilirubin Test strip Ql (U)O rdered By: Alex Farris on 01-16-2023 Bilirubin Ql (U) Negative Negative [facility] Blood erythrocytes count (nu mber/volume)Ordered By: Alex Farris on 01-16-2023 RBC (Bld) [#/Vol] 4.18 10*6/uL 4.2-5.4 [facility] Blood hemoglobin measurement (mass/volume)Ordered By: Alex Farris on 01-16-2023 Hemoglobin (Bld) [Mass/Vol] 13.7 g/dL 12.0-15.0 [facility] Blood lymphocytes/100 leukoc ytesOrdered By: Alex Farris on 01-16-2023 Lymphocytes/100 WBC (Bld) 26.5 % 19-41 [facility] Blood monocytes/100 leukocyt esOrdered By: Alex Farris on 01-16-2023 Monocytes/100 WBC (Bld) 7.2 % 0-10 [facility] [place] [facility] Blood platelet mean volumeOr dered By: Alex Farris on 01-16-2023 Platelet mean volume (Bld) [Entitic vol] 9.7 fL 6.2-12.0 [facility] Determination of erythrocyte mean corpuscular volume (MCV)Ordered By: Alex Farris on 01-16-2023 MCV (RBC) [Entitic vol] 100.7 fL 81-99 [facility] [place] [facility] Erythrocyte sedimentation ra teOrdered By: Alex Farris on 01-16-2023 ESR (Bld) [Velocity] 9 mm/h 0-30 [facility] Hematocrit Auto (Bld) [Volum e fraction]Ordered By: Alex Farris on 01-16-2023 Hematocrit (Bld) [Volume fraction] 42.1 % 37-47 [facility] Ketones Test strip Ql (U)Ord ered By: Alex Farris on 01-16-2023 Ketones Ql (U) Negative Negative [facility] Laboratory - Hematology and Cell countsOrdered By: Alex Farris on 01-16-2023 Erythrocyte distribution width (RBC) [Entitic vol] 46.8 fL 35.1-43.9 [facility] Erythrocyte distribution width (RBC) [Ratio] 12.5 % 11.6-14.6 [facility] Immature granulocytes/100 WBC (Bld) 0.500 % 0.0-0.9 [facility] Comment on above: IG% - Immature Granu locytes (promyelocytes, myelocytes and metamyelocytes) > 1% indicates that a LEFT SHIFT is Present. MCH (RBC) [Entitic mass] 32.8 pg 27.0-32.0 [facility] Nucleated RBC/100 WBC (Bld) [Ratio] 0 % 0-5 [facility] MCHC Auto (RBC) [Mass/Vol]Or dered By: Alex Farris on 01-16-2023 MCHC (RBC) [Mass/Vol] 32.5 g/dL 32-36 [facility] Nitrite Test strip Ql (U)Ord ered By: Alex Farris on 01-16-2023 Nitrite Ql (U) Negative Negative [facility] Platelets bldOrdered By: Kirk Farris on 01-16-2023 Platelets (Bld) [#/Vol] 308 10*3/uL 150-450 [facility] Protein Test strip Ql (U)Ord ered By: Alex Farris on 01-16-2023 Protein Ql (U) Negative Negative [facility] Thin prep Papanicolaou smear with manual screeningOrdered By: Alex Farris on 01-16-2023 Thin prep Papanicolaou smear with manual screening < 5.0 mg/L NO RANGE EST. [facility] Urine blood detectionOrdered By: Alex Farris on 01-16-2023 RBC Ql (U) Negative Negative [facility] Urine clarityOrdered By: Kirk isemma Farris on 01-16-2023 Clarity (U) Clear Clear [facility] Urine color determinationOrd ered By: Alex Farris on 01-16-2023 Color (U) Yellow Yellow [facility] Urine glucose detectionOrder ed By: Alex Farris on 01-16-2023 Glucose Ql (U) Normal mg/dl Normal [facility] Urine leukocyte esterase det ection by dipstickOrdered By: Alex Farris on 01-16-2023 Leukocyte esterase Test strip Ql (U) Negative Negative [facility] Urine pHOrdered By: Mecca Farris on 01-16-2023 pH (U) 6.0 [pH] 5.0 - 8.0 [facility] Urine specific gravity measu rementOrdered By: Alex Farris on 01-16-2023 Specific gravity (U) [Rel density] 1.010 1.002-1.030 [facility] Urobilinogen Auto test strip Ql (U)Ordered By: Alex Farris on 01-16-2023 Urobilinogen Ql (U) Normal mg/dl Normal [facility] Basophil percentageOrdered B y: Dr. Farris on 07-31-2022 Chloride [Moles/Vol] 105 mmol/L 98-107 [facility] Cholesterol [Mass/Vol] 258 mg/dL <200 [facility] Comment on above: <200 mg/dL Desirable 200-240 mg/dL Borderline >240 mg/dL High Risk Glucose [Mass/Vol] 111 mg/dL 74-[address] [facility] Comment on above: Fasting Glucose resu lt from 100 to 125 mg/dL suggests IMPAIRED HOMEOSTASIS per A.D.A. criteria. Potassium [Moles/Vol] 3.9 mmol/L 3.5-5.1 [facility] Sodium [Moles/Vol] 138 mmol/L 136-[address] [facility] Triglyceride [Mass/Vol] 210 mg/dL <199 [facility] Comment on above: The drugs N-Acetylcy steine and Metamizole may falsely depress this assay.Serum Triglycerides Reference Interval Normal <150 mg/dL Borderline high 150 - 199 mg/dL High 200 - 499 mg/dL Very High > or = 500 mg/dL Laboratory - Chemistry and C hemistry - challengeOrdered By: Dr. Farris on 07-31-2022 CO2 [Moles/Vol] 26.0 mmol/L 21.0-32.0 [facility] Urea nitrogen/Creatinine [Mass ratio] 19.8 mg/mg 10-20 [facility] No Panel InformationOrdered By: Dr. Farris on 07-31-2022 Estimated GFR (MDRD) Amer 72 mL/min >60 [facility] Comment on above: GFR Calc Estimated GFR (MDRD) Non-Af Amer 60 mL/min >60 [facility] Comment on above: Non- GFR Calc Thyroid Stimulating Hormone (TSH) 2.96 uIU/mL 0.358-3.74 [facility] Serum or plasma calcium fide urement (mass/volume)Ordered By: Dr. Farris on 07-31-2022 Calcium [Mass/Vol] 9.7 mg/dL 8.5-10.[address] [facility] Serum or plasma cholesterol in HDL measurement (mass/volume)Ordered By: Dr. Farris on 07-31-2022 Cholesterol in HDL [Mass/Vol] 72 mg/dL >40 [facility] Comment on above: The drugs N-Acetylcy steine and Metamizole may falsely depress this assay. Reference Range HDL <40 mg/dL Low HDL Cholesterol HDL >or= 60 mg/dL High HDL Cholesterol Serum or plasma cholesterol in VLDL measurement (mass/volume)Ordered By: Dr. Farris on 07-31-2022 Cholesterol in VLDL [Mass/Vol] 42 mg/dL 5-40 [facility] Serum or plasma creatinine m easurement (mass/volume)Ordered By: Dr. Farris on 07-31-2022 Creatinine [Mass/Vol] 1.01 mg/dL 0.55-1.02 [facility] Comment on above: The validity of the calculated GFR & GFRAA in patients over 70 years has not been determined. Clinical correlation is essential. Serum or plasma low density lipoprotein (LDL) cholesterol measurement (mass/volume)Ordered By: Dr. Farris on 07-31-2022 Cholesterol in LDL [Mass/Vol] 144 mg/dL 0-130 [facility] Serum or plasma urea nitroge n measurement (mass/volume)Ordered By: Dr. Farris on 07-31-2022 Urea nitrogen [Mass/Vol] 20 mg/dL 7-18 [facility] Thin prep Papanicolaou smear with manual screeningOrdered By: Dr. Farris on 07-31-2022 Thin prep Papanicolaou smear with manual screening 7 - [facility] Vital Signs Date Time Vital Sign Value Performing Clinician Faci lity 02-18-2025 13:08-0400 Body height 165.[address] Hieu Farris MD Work Phone: [facility] 02-18-2025 13:07-0400 Body mass index (BMI) [Ratio] 39.4 kg/m2 Dr. Hieu Farris MD Work Phone: [facility] 02-18-2025 13:07-0400 Body weight 107.[address] Hieu Farris MD Work Phone: [facility] 02-18-2025 13:07-0400 Diastolic blood pressure 78 mm[Hg] Dr. Hieu Farris MD Work Phone: [facility] 02-18-2025 13:07-0400 Systolic blood pressure 123 mm[Hg] Dr. Hieu Farris MD Work Phone: [facility] 08-19-2024 14:40-0500 Body mass index (BMI) [Ratio] 40.74 kg/m2 Denise Marlow MD Work Phone: [facility] 08-19-2024 14:40-0500 Body weight 106.4 kg Denise Marlow MD Work Phone: [facility] 08-19-2024 14:40-0500 Diastolic blood pressure 79 mm[Hg] Denise Marlow MD Work Phone: [facility] 08-19-2024 14:40-0500 Heart rate 76 /min Denise Marlow MD Work Phone: [facility] 08-19-2024 14:40-0500 SaO2% (BldA) [Mass fraction] 98 % Denise Marlow MD Work Phone: [facility] 08-19-2024 14:40-0500 Systolic blood pressure 125 mm[Hg] Denise Marlow MD Work Phone: [facility] 12-06-2023 10:50-0400 Body height 161.6 cm Denise Marlow MD Work Phone: [facility] 12-06-2023 10:50-0400 Body mass index (BMI) [Ratio] 40.97 kg/m2 Denise Marlow MD Work Phone: [facility] 12-06-2023 10:50-0400 Body weight 107 kg Denise Marlow MD Work Phone: [facility] 12-06-2023 10:50-0400 Diastolic blood pressure 77 mm[Hg] Denise Marlow MD Work Phone: [facility] 12-06-2023 10:50-0400 Heart rate 71 /min Denise Marlow MD Work Phone: [facility] 12-06-2023 10:50-0400 SaO2% (BldA) [Mass fraction] 99 % Denise Marlow MD Work Phone: [facility] 12-06-2023 10:50-0400 Systolic blood pressure 121 mm[Hg] Denise Marlow MD Work Phone: [facility] 06-13-2022 10:53-0500 Body height 165.[address] Alex Farris Work Phone: [facility] 06-13-2022 10:53-0500 Body mass index (BMI) [Ratio] 39.6 kg/m2 Dr. Alex Farris Work Phone: [facility] 06-13-2022 10:53-0500 Body temperature 97.7 [degF] Dr. Alex Farris Work Phone: [facility] 06-13-2022 10:53-0500 Body weight 108.[address] Alex Farris Work Phone: [facility] 06-13-2022 10:53-0500 Diastolic blood pressure 90 mm[Hg] Dr. Alex Farris Work Phone: [facility] 06-13-2022 10:53-0500 Heart rate 73 /min Dr. Alex Farris Work Phone: [facility] 06-13-2022 10:53-0500 Respiratory rate 20 /min Dr. Alex Farris Work Phone: [facility] 06-13-2022 10:53-0500 SaO2% (BldA) [Mass fraction] 99 % Dr. Alex Farris Work Phone: [facility] 06-13-2022 10:53-0500 Systolic blood pressure 128 mm[Hg] Dr. Alex Farris Work Phone: [facility] Encounters Encounter Date Encounter Type Care Provider Facility Start: 03-03-2025 End: 03-03-[address] 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 [facility] Start: 02-03-2025 End: 02-03-2025 Telephone encounter Denise Marlow MD Work Phone: [facility] Comment on above: Refill Request Start: 08-19-2024 End: 08-19-2024 Patient encounter procedure Denise Marlow MD Work Phone: [facility] Comment on above: Moderate persistent asthma without complication (Primary Dx); History of environmental allergies; ERNESTINA on CPAP; Brief Remote Smoking History Start: 08-19-2024 End: 08-19-2024 ambulatory DENISE MARLOW Facility:[facility] Start: 05-13-2024 End: 05-13-2024 ambulatory Hieu Farris Facility:[facility] Start: 05-03-2024 End: 05-04-2024 Refill Denise Marlow MD Work Phone: [facility] Medicine Comment on above: Refill Request Start: 03-30-2024 End: 03-30-2024 ambulatory Hieu Farris [facility] Start: 12-23-2023 Telephone encounter Denise Marlow MD Work Phone: [facility] Medicine Comment on above: Medication Problem Start: 12-06-2023 End: 12-06-2023 ambulatory DENISE MARLOW Pul[facility] Medicine Comment on above: Spirometry Start: 12-06-2023 End: 12-06-2023 Patient encounter procedure Pulm Fct Lab [facility] Work Phone: Pulmonary Medicine Comment on above: Moderate persistent asthma without complication (Primary Dx); History of environmental allergies; ERNESTINA on CPAP; Brief Remote Smoking History Start: 11-06-2023 Orders Only Denise bonilla MD Work Phone: [facility] Comment on above: Asthma, unspecified asthma severity, unspecified whether complicated, unspecified whether persistent (Primary Dx) Start: 01-16-2023 End: 01-16-2023 ambulatory [facility] Work Phone: Start: 01-16-2023 End: 01-16-2023 Patient encounter procedure [facility] Work Phone: Start: 12-19-2022 End: 12-19-2022 ambulatory [facility] Work Phone: Start: 12-19-2022 End: 12-19-2022 Patient encounter procedure [facility]-Outpatient Breast Imaging Work Phone: Start: 10-29-2022 End: 10-29-2022 Patient encounter procedure [facility]-Cat Scan, [facility] Work Phone: Start: 08-30-2022 End: 08-30-[address] Alex Farris Work Phone: [facility] Work Phone: Start: 08-30-2022 End: 08-30-[address] Alex Farris [facility] Start: 08-16-2022 End: 08-16-[address] Alex Farris Work Phone: [facility] Start: 07-31-2022 End: 07-31-[address] Alex Farris Work Phone: [facility] Work Phone: Start: 07-31-2022 End: 07-31-[address] Alex Farris Work Phone: [facility] Start: 07-05-2022 End: 07-05-[address] Alex Farris Work Phone: [facility] Start: 06-28-2022 End: 06-28-[address] Alex Farris Work Phone: [facility] Start: 06-21-2022 End: 06-21-[address] Alex Farris Work Phone: [facility] Start: 06-19-2022 End: 06-19-[address] Alex Farris Work Phone: [facility] Start: 06-15-2022 End: 06-15-[address] Alex Farris Work Phone: [facility] Start: 06-13-2022 End: 06-13-[address] Alex Farris Work Phone: [facility] Start: 05-11-2022 End: 05-11-[address] Alex Farris Work Phone: [facility] Start: 02-12-2022 End: 02-12-[address] Alex Farris Work Phone: [facility] Start: 02-08-2022 End: 02-08-[address] Alex Farris Work Phone: [facility] Work Phone: Start: 02-08-2022 End: 02-08-[address] [facility] Start: 01-26-2022 End: 01-26-[address] Alex Farris Work Phone: [facility] Start: 12-14-2021 End: 12-14-2021 Discharged Recurring [facility]-Physical Therapy Start: 11-09-2021 End: 11-09-2021 Patient encounter procedure [facility] Procedures Date Procedure Procedure Detail Performing Clinician Start: 03-03-[address] Hieu kuo MD Work Phone: Start: 12-06-2023 Nitric oxide gas determination Denise Marlow MD Work Phone: Start: 12-06-2023 Brncdilat rspse spmtry pre&post-brncdilat admn Denise Marlow MD Work Phone: Start: 12-19-2022 Screening mammography Start: 10-29-2022 CT of face Start: 08-30-2022 Radiography of nasal sinuses Dr. Alex Farris Work Phone: Start: 02-08-2022 MRI of joint of lower extremity Dr. Alex Farris Work Phone: Start: 01-26-2022 Radiologic examination of knee Dr. Alex Farris Work Phone: Start: 11-09-2021 Screening mammography Start: 08-16-2017 Colonoscopy Denise Thomas Work Phone: Start: 07-02-2017 Lipid 1996 panel - Serum or Plasma Denise Marlow MD Work Phone: H/O: hysterectomy H/O: hysterectomy History of tonsillectomy History of tonsi llectomy Plan of Treatment Date Care Activity Detail Author Start: 03-06-2029 Urine microalbumin profile DTaP,Tdap,Td Vaccine (4 - Td or Tdap) [facility] Start: 08-17-2027 Screening for malign ant neoplasm of colon [facility] Start: 08-19-2025 BP Controlled (<130/80) BP Controlle d (<130/80) [facility] Start: 02-15-2025 Influenza vaccination Influenza Vacc ine (#1) [facility] Start: 12-05-2024 BP Controlled (<130/80) BP Controlle d (<130/80) [facility] Start: 05-28-2024 End: 05-28-2024 Patient encounter procedure 05/28/2024 8:30 AM EST Office Visit Pulmonary Medicine [address] [address] Denise Marlow MD [address] [place] [address] 6 month follow up [facility]monary Medicine Comment on above: 6 month follow up Start: 2024 RSV Vaccine (1 - Ris k 60-74 years 1-dose series) RSV Vaccine (1 - Risk 60-74 years 1-dose series) [facility] Start: 02-16-2024 Covid-19 Vaccine ( season) Covid-19 Vaccine ( season) [facility] Start: 02-16-2024 Influenza vaccination [facility] Start: 12-06-2023 End: 03-06-2024 [employer] [facility] Work Phone: Comment on above: Expected: 12/06/2023 , Expires: 03/06/2024 Start: 12-06-2023 End: 03-06-2024 [employer] [facility] Comment on above: Expected: 12/06/2023 , Expires: 03/06/2024 Start: 12-06-2023 End: 03-06-2024 IgE [Units/volume] in Serum or Plasma [facility] Comment on above: Expected: 12/06/2023 , Expires: 03/06/2024 Start: 12-06-2023 End: 12-06-2023 Patient encounter procedure 12/06/2023 11:00 AM EDT Office Visit Pulmonary Medicine [address] [address] Denise Marlow MD [address] [place] [address] Asthma [facility] Comment on above: Asthma Start: 12-06-2023 End: 12-06-2023 ambulatory [facility] Medicine Comment on above: Asthma Start: 06-17-2023 Behavioral Health Screening Behavioral Health Screening [facility] Start: 02-15-2023 Covid-19 Vaccine ( season) Covid-19 Vaccine () [facility] Start: 02-15-2023 Covid-19 Vaccine ( season) Covid-19 Vaccine ( season) [facility] Start: 07-02-2022 Lipid panel Lipid Screening [facility] Start: 2022 Shingrix Vaccine (2 of 2) Shingrix Vaccine (2 of 2) [facility] Start: 02-12-[address] [facility] Work Phone: Start: 07-02-2020 Diabetes Screening Diabetes Screenin g [facility] Start: 04-27-2019 Urine microalbumin profile DTaP,Tdap,Td Vaccine (3 - Td or Tdap) [facility] Start: 02-08-2018 Screening for malign ant neoplasm of breast Mammogram Screening [facility] Start: 02-18-2014 Shingrix Vaccine (1 of 2) Shingrix Vaccine (1 of 2) [facility] Start: 02-18-2009 Screening for malign ant neoplasm of colon [facility] Start: 02-18-1983 Pneumococcal Vaccine : 50+ (1 of 2 - PCV) Pneumococcal Vaccine: 50+ (1 of 2 - PCV) [facility] Start: 02-18-1982 Annual PCP Team [employer] Set Up Operator polo Disease Visit Annual PCP Team Chronic Disease Visit [facility] Start: 02-18-1982 Anxiety Screening Anxiety Screening [facility] Start: 02-18-1982 Depression Screening Depression Scre ening [facility] Start: 02-18-1982 Hepatitis C screening Hepatitis C Sc mansi [facility] Start: 02-18-1982 HIV screening HIV Screening [facility] End: 12-05-2024 NITRIC OXIDE, EXHALED NITRIC OXIDE, EXHALED PFT Routine Asthma, unspecified asthma severity, unspecified whether complicated, unspecified whether persistent 1 Occurrences starting 11/06/2023 until 12/05/2024 [facility] Work Phone: Comment on above: 1 Occurrences starti ng 11/06/2023 until 12/05/2024 Patient referral [facility] Work Phone: End: 12-05-2024 SPIROMETRY - BASELINE AND POST DILATOR SPIROMETRY - BASELINE AND POST DILATOR PFT Routine Asthma, unspecified asthma severity, unspecified whether complicated, unspecified whether persistent 1 Occurrences starting 11/06/2023 until 12/05/2024 [facility] Comment on above: 1 Occurrences starti ng 11/06/2023 until 12/05/2024 Immunizations Immunization Date Immunization Notes Care Provider Kristy venegas 07-02-2017 influenza virus vacc ine, unspecified formulation Denise Marlow MD Work Phone: [facility] 04-27-2009 tetanus toxoid, redu alix diphtheria toxoid, and acellular pertussis vaccine, adsorbed Denise Marlow MD Work Phone: [facility] 06-17-1985 diphtheria and tetan us toxoids, adsorbed for pediatric use Denise Marlow MD Work Phone: [facility] Payers Date Payer Category Payer Private Health Insurance [id number] 2024 Self-pay [id number] 2023 Private Health Insurance AUL[employer] E [id number] 2023 Unknown [id number] 2021 Unknown [id number] Unknown [id number] Unknown [id number] Unknown [id number] Unknown [id number] Unknown [id number] Unknown [id number] Social History Date Type Detail Facility Start: 08-09-2021 End: 08-16-2022 Tobacco smoking status MTIS Unknown if ever smoked [facility] Start: 1965 Sex Assigned At Female [facility] Start: 09-06-2008 End: 08-19-2024 Tobacco smoking status NHIS Ex-smoker [facility] Work Phone: History of tobacco use Current smoker [facility] History of tobacco use Cigarette Smoker [facility] Start: 09-06-2008 End: 12-10-2023 Cigarettes smoked current (pack per day) - Reported 1 [facility] Start: 09-06-2008 End: 08-19-2024 Tobacco use and exposure Smokeless tobacco non-user [facility] Start: 09-16-2017 End: 08-19-2024 Alcohol intake Current drinker of alcohol (finding) [facility] Start: 05-06-2020 End: 12-10-2023 Tobacco use panel [facility] Start: 05-18-2012 National Score (1-10 0), lower number is lower risk Not on file [facility] Start: 1965 Sex Assigned At Not on file [facility] History of tobacco use Passive smoker [facility] Start: 12-06-2023 Tobacco Comment 18 years ago, quit 1985 [facility] Start: 03-27-2024 Tobacco smoking stat us NHIS Never smoked tobacco (finding) [facility] Medical Equipment Procedure Code Equipment Code Equipment Origin al Text Equipment Identifier Dates [facility]ling [facility] [id number] Start: 06-04-2012 Functional Status Date Assessment Result Facility 11-03-2014 Are you deaf, or do you have serious difficulty hearing No 11/03/2014 2:06 PM EDT Audrey Coello LPN No [facility] 11-03-2014 Are you blind, or do you have serious difficulty seeing, even when wearing glasses No 11/03/2014 2:06 PM EDT Audrey Coello LPN No [facility] 11-03-2014 Do you have serious difficulty walking or climbing stairs No 11/03/2014 2:06 PM EDT Audrey Coello LPN No [facility] 11-03-2014 Do you have difficul ty dressing or bathing No 11/03/2014 2:06 PM EDT Audrey Coello LPN No [facility] 11-03-2014 Because of a physica l, mental, or emotional condition, do you have difficulty doing errands alone such as visiting a physician's office or shopping No 11/03/2014 2:06 PM EDT Audrey Coello LPN No [facility] Mental Status Date Assessment Result Facility 11-03-2014 Because of a physica l, mental, or emotional condition, do you have serious difficulty concentrating, remembering, or making decisions No 11/03/2014 2:06 PM EDT Audrey Coello LPN No [facility] Clinical Notes 12-06-2023 to 02-18-2025 Note Date & Type Note Facility 02-18-2025 Evaluation note Diagnosis Onset Date Resolution Encounter for routine gynecological examination noneactive February 18 025 1:02pm [facility] Work Phone: [phone]) 465-886808-20-2025 Telephone encounter Note* Telephone Encounter - Della Carpio RN - 02/03/2025 2:11 PM EDT Calling, had been on Asmanex, her Insurance would not cover it so she was put on Qvar. Insurance will not cover the Qvar, asking for a rx for Asmanex to go to . Please review and address. [facility]08-20-2025 Miscellaneous Notes* Telephone Encounter - Della Carpio RN - 02/03/2025 2:11 PM EDT Calling, had been on Asmanex, her Insurance would not cover it so she was put on Qvar. Insurance will not cover the Qvar, asking for a rx for Asmanex to go to [facility]. Please review and address. [facility]25 NoteHNO ID: [id number] Author: DENISE MARLOW MD Service: ? Author Type: Physician Type: Progress Notes Filed: 08/19/2024 16:01 Note Text: [facility] OFFICE VISIT FOLLOW UP 08/19/2024 Patient Name: Jackie Guaman PRIMARY CARE PHYSICIAN: No primary care provider on file. REASON FOR CONSULT: Establish asthma care REFERRING PHYSICIAN: Self My final recommendations will be communicated to the requesting health care provider by way of the shared medical record for internal providers or by letter via US mail for external providers. ASSESSMENT/PLAN 1) Mild intermediate asthma: Spirometry shows no obstruction. FeNO: Normal. Symptoms have improved. No peripheral eosinophilia. RAST and IgE testing have been negative -Continue Qvar 2 puffs twice a day ergillus specific IgE -Continue as needed albuterol HFA, patient has been using albuterol prior to exercise and denies any symptoms -Inhaler technique reviewed and appropriate. -We discussed how to maintain an asthma diary and how to avoid triggers. -Tolerance to inhalers checked. No side effects noted. 2) History of allergies 3) History of ERNESTINA on CPAP 4) Remote Brief Smoking History. Next visit: 12 months Patient instructed to contact me in case of symptoms, imaging and lab results. I discussed the plan in detail with the patient and the patient verbalizes understanding and is in agreement. Denise Marlow MD, Staff, [facility] CHIEF COMPLAINT: Chest tightness and cough while exercising. HISTORY OF PRESENT ILLNESS: Jackie Guaman is a 58 year-old lady with past medical history of mild intermittent asthma, ERNESTINA, hypertension and hyperlipidemia. Is here in the clinic to establish care for her. Patient is here for a follow-up appointment. After our last visit patient was able to get Qvar which she is using 2 puffs twice a day. Patient is also using 1 puff of albuterol prior to exercise and with this she states her symptoms are very well-controlled. Denies any wheezing, coughing or dyspnea. No nighttime symptoms Prior encounter 11/2023 Was diagnosed with asthma 10 years ago and was on Asmanex inhaler along with as needed albuterol. When she was diagnosed with asthma, she had symptoms like constant throat clearing and coughing, which improved after starting on inhalers. Patient asthma was well controlled and therefore she quit using her Asmanex. Initially referred to clinic for complaints of chest tightness and coughing, especially when she would work out. The symptoms ongoing for weeks to months. Therefore, she started using her inhalers which seem to improve her symptoms. Has ran out of her Asmanex in the last couple of days. Denies any childhood symptoms of asthma, no family, history of asthma. States that she may have allergies to the environment as she sometimes notices nasal congestion and constant throat clearing from post nasal drip. Patient has a brief remote history of smoking in her teenage years. Has no dogs or pets at home. But her children who live close by bring their dogs to her house, patient has not noticed worsening of her symptoms in the presence of the dogs. 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 Denies any dyspnea at rest, no wheezing. No difficulty with ADLs No hospitalizations or ER visit for breathing or asthma Steroids use: None MMRC Dyspnea Scale: 0. Not troubled by breathlessness except on strenuous exercise Short of breath when hurrying or walking up a slight hill Walks slower than contemporaries on the level because of breathlessness, or has to stop for breath when walking at own pace Stops for breath after about 100 m or after a few minutes on the level Too breathless to leave the house, or breathless when dressing or undressing Social and Personal History: - Smoking: Patient has a brief remote history of smoking in her teenage years. 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 Other Environmental Exposure History: Pets: No birds Asbestos: No significant exposure Silica: No significant exposure Briscoe: No significant exposure Mold: No significant exposure Hot tub: No significant exposure Fumes: No significant exposure Metal dust: No significant exposure Beryllium: No significant exposure Dust: No significant exposure Medications: No relevant exposure for interstitial lung diseases FAMILY HISTORY Problem Relation Age of Onset None Mother Prostate Cancer Father Diabetes Maternal Grandfather Social History Tobacco Use Smoking status: Former Current packs/day: 1.00 Average packs/day: 1 pack/day for 5.0 years (5.0 ttl pk-yrs) Types: Cigarettes Passive exposure: Past Smokeless tobacco: Never Toba (more content not included)...[facility]03-05-2025 History of Present illness Narrative* Denise Marlow MD - 08/19/2024 2:51 PM EST Images from the original note were not included. [facility] OFFICE VISIT FOLLOW UP 08/19/2024 Patient Name: Jackie Guaman PRIMARY CARE PHYSICIAN: No primary care provider on file. REASON FOR CONSULT: Establish asthma care REFERRING PHYSICIAN: Self My final recommendations will be communicated to the requesting health care provider by way of the shared medical record for internal providers or by letter via US mail for external providers. ASSESSMENT/PLAN 1) Mild intermediate asthma: Spirometry shows no obstruction. FeNO: Normal. Symptoms have improved. No peripheral eosinophilia. RAST and IgE testing have been negative -Continue Qvar 2 puffs twice a day ergillus specific IgE -Continue as needed albuterol HFA, patient has been using albuterol prior to exercise and denies any symptoms -Inhaler technique reviewed and appropriate. -We discussed how to maintain an asthma diary and how to avoid triggers. -Tolerance to inhalers checked. No side effects noted. 2) History of allergies 3) History of ERNESTINA on CPAP 4) Remote Brief Smoking History. Next visit: 12 months Patient instructed to contact me in case of symptoms, imaging and lab results. I discussed the plan in detail with the patient and the patient verbalizes understanding and is in agreement. Denise Marlow MD, Staff, [facility] CHIEF COMPLAINT: Chest tightness and cough while exercising. HISTORY OF PRESENT ILLNESS: Jackie Guaman is a 58 year-old lady with past medical history of mild intermittent asthma, RENESTINA, hypertension and hyperlipidemia. Is here in the clinic to establish care for her. Patient is here for a follow-up appointment. After our last visit patient was able to get Qvar which she is using 2 puffs twice a day. Patient is also using 1 puff of albuterol prior to exercise and with this she states her symptoms are very well-controlled. Denies any wheezing, coughing or dyspnea. No nighttime symptoms Prior encounter 11/2023 Was diagnosed with asthma 10 years ago and was on Asmanex inhaler along with as needed albuterol. When she was diagnosed with asthma, she had symptoms like constant throat clearing and coughing, which improved after starting on inhalers. Patient asthma was well controlled and therefore she quit using her Asmanex. Initially referred to clinic for complaints of chest tightness and coughing, especially when she would work out. The symptoms ongoing for weeks to months. Therefore, she started using her inhalers which seem to improve her symptoms. Has ran out of her Asmanex in the last couple of days. Denies any childhood symptoms of asthma, no family, history of asthma. States that she may have allergies to the environment as she sometimes notices nasal congestion and constant throat clearing from post nasal drip. Patient has a brief remote history of smoking in her teenage years. Has no dogs or pets at home. But her children who live close by bring their dogs to her house, patient has not noticed worsening of her symptoms in the presence of the dogs. 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 Denies any dyspnea at rest, no wheezing. No difficulty with ADLs No hospitalizations or ER visit for breathing or asthma Steroids use: None MMRC Dyspnea Scale: 0. Not troubled by breathlessness except on strenuous exercise Short of breath when hurrying or walking up a slight hill Walks slower than contemporaries on the level because of breathlessness, or has to stop for breath when walking at own pace Stops for breath after about 100 m or after a few minutes on the level Too breathless to leave the house, or breathless when dressing or undressing Social and Personal History: - Smoking: Patient has a brief remote history of smoking in her teenage years. 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 Other Environmental Exposure History: Pets: No birds Asbestos: No significant exposure Silica: No significant exposure Briscoe: No significant exposure Mold: No significant exposure Hot tub: No significant exposure Fumes: No significant exposure Metal dust: No significant exposure Beryllium: No significant exposure Dust: No significant exposure Medications: No relevant exposure for interstitial lung diseases FAMILY HISTORY Problem Relation Age of Onset None Mother Prostate Cancer Father Diabetes Maternal Grandfather Social History Tobacco Use Smoking status: Former Current packs/day: 1.00 Average packs/day: 1 pack/day for 5.0 years (5.0 ttl pk-yrs) Types: Cigarettes Passive exposure: Past Smokeless tobacco: Never Tobacco comments: 18 years ago, quit 1984 Substance Use Topics Alcohol use: Yes Comment: daily- wine or beer/ average 12 drinks a week Drug use: No ALLERGIES ALLERGIES Allergen Reactions Aleve [Naproxen Sod* Hives passed out Sulfa (Sulfonamide * CURRENT OUTPATIENT MEDICATIONS fluticasone (FLONASE) 50 mcg/actuation nasal spray Use 2 Sprays in each nostril two times a day. latanoprost (XALATAN) 0.005 % ophthalmic solution Use 1 Drop in both eyes daily at bedtime. lisinopril (ZESTRIL) 40 mg tablet Take 40 mg by mouth once daily. albuterol HFA (PROVENTIL HFA, VENTOLIN HFA) 90 mcg/actuation inhaler USE 2 INHALATIONS BY MOUTH EVERY 4 HOURS NEEDED DIRECTED beclomethasone (QVAR REDIHALER) 80 mcg/actuation inhaler Inhale 2 Puffs as instructed two times a day. albuterol HFA 90 mcg/actuation HFA Inhale as instructed. albuterol HFA (PROVENTIL HFA, VENTOLIN HFA) 90 mcg/actuation inhaler Inhale 2 Puffs as instructed every 4 hours as needed. adapalene (DIFFERIN) 0.1 % gel Apply to entire affected areas of acne daily up to twice daily (if needed) as directed and tolerated. REVIEW OF SYSTEMS The remainder of review of systems was negative. PHYSICAL EXAM BP 125/79 Pulse 76 Wt 234 lb 9.1 oz (106.4kg) SpO2 98% LMP 01/04/2012 General appearance: Well appearing, alert, in no acute distress. Eyes: PERRLA Lungs: Lungs clear to auscultation. No wheezing, rhonchi, rales Heart: RRR without murmur, gallop, or rubs. Abdomen: Abdomen soft, non-tender. Bowel sounds normal Extremities: Normal, Warm, No cyanosis, no clubbing, No edema Neuro: no focal weakness Psychiatry: Alert, Oriented X 3 DATA Diagnostic tests reviewed for today's visit, including labs imaging and other relevant testing werepersonally reviewed and analysed by me: Most recent labs and imaging results. PULMONARY TESTING PFT Date:12/06/2023 Impression: No obstruction on spirometry # Lung cancer screening - Doesn't qualify. # Immunizations: COVID/Influenza/Pneumococcal/TDAP if not received prior/Shingles Immunization History Administered Date(s) Administered COVID-19 original vaccine, age 12+ yr, monovalent ([employer] - PURPLE TOP) 06/12/2021 COVID-19 original vaccine, full dose, monovalent (MODERNA) 09/08/2020 10/06/2020 diphtheria tetanus (DT) vaccine, pediatric 06/17/1985 tetanus diphtheria pertussis (Tdap) vaccine, age 7+ yr (ADACEL, BOOSTRIX) 04/27/2009 Portions of this note including HPI, ROS, impression/plan, and examination may have been copied forward as to provide important historical information essential in contributing to medical decision making. Documentation has been reviewed and edited as necessary to support clinical decision making for today's visit and to reflect my own independent evaluation of this patient on 08/19/2024 Denise Marlow MD, Staff, [facility] documented in this encounterGrant [facility]11-18-2024 Telephone encounter Note * Telephone Encounter - Arjun ZengOCTAVIO - 05/04/2024 8:48 AM EST Patient's request for medication is as follows: Requested Prescriptions Pending Prescriptions Disp Refills albuterol HFA (PROVENTIL HFA, VENTOLIN HFA) 90 mcg/actuation inhaler [Pharmacy Med Name: ALBUTEROL HFA 90MCG/ACT (PV)] 40.2 g Sig: USE 2 INHALATIONS BY MOUTH EVERY 4 HOURS NEEDED DIRECTED MAGNO: 12/06/23 Please approve the above prescription(s) to electronically send to pharmacy. Arjun Zeng LPN [facility]11-18-2024 Miscellaneous Notes* Telephone Encounter - Arjun Zeng LPN - 05/04/2024 8:48 AM EST Patient's request for medication is as follows: Requested Prescriptions Pending Prescriptions Disp Refills albuterol HFA (PROVENTIL HFA, VENTOLIN HFA) 90 mcg/actuation inhaler [Pharmacy Med Name: ALBUTEROL HFA 90MCG/ACT (PV)] 40.2 g Sig: USE 2 INHALATIONS BY MOUTH EVERY 4 HOURS NEEDED DIRECTED MAGNO: 12/06/23 Please approve the above prescription(s) to electronically send to pharmacy. Arjun Zeng LPN documented in this encounterGrant Hospital07-10-2024 Note* Addendum Note - Arjun Zeng LPN - 12/25/2023 11:13 AM EDTAddended by: ARJUN ZENG on: 12/25/2023 11:13 AM Modules accepted: Orders [facility]07-10-2024 Miscellaneous Notes* Addendum Note - Arjun Zeng LPN - 12/25/2023 11:13 AM EDTAddended by: ARJUN ZENG on: 12/25/2023 11:13 AM Modules accepted: Orders * Telephone Encounter - Jasmina Sharp - 12/23/2023 4:11 PM EDT PT's insurance will not cover Asmanex. PT is requesting an RX for Qvar. Please call PT to montse, . documented in this encounterGrant Hospital07-08-2024 Telephone encounter Note * Telephone Encounter - Jasmina Sharp - 12/23/2023 4:11 PM EDT PT's insurance will not cover Asmanex. PT is requesting an RX for Qvar. Please call PT to advise, . [facility]06-21-2024 History of Present illness Narrative* Denise Marlow MD - 12/06/2023 11:09 AM EDT Images from the original note were not included. [facility] OFFICE VISIT CONSULT 12/06/2023 Patient Name: Jackie Guaman PRIMARY CARE PHYSICIAN: No primary care provider on file. REASON FOR CONSULT: Establish asthma care REFERRING PHYSICIAN: Self My final recommendations will be communicated to the requesting health care provider by way of the shared medical record for internal providers or by letter via [place] mail for external providers. ASSESSMENT/PLAN 1) Moderate Persistent Asthma: Spirometry shows no obstruction. FeNO: Normal. - will obtain CBC with diff to evaluate peripheral eosinophilia - obtain RAST testing, total IgE and Aspergillus specific IgE - Will restart ICS Asmanex 2 puffs BID - Continue as needed albuterol HFA - Inhaler technique reviewed and appropriate. - We discussed how to maintain an asthma diary and how to avoid triggers. - Tolerance to inhalers checked. No side effects noted. 2) History of allergies 3) History of ERNESTINA on CPAP 4) Remote Brief Smoking History. Next visit: 6 months Patient instructed to contact me in case of symptoms, imaging and lab results. I discussed the plan in detail with the patient and the patient verbalizes understanding and is in agreement. Denise Marlow MD, Staff, [facility] CHIEF COMPLAINT: Chest tightness and cough while exercising. HISTORY OF PRESENT ILLNESS: Jackie Guaman is a 58 year-old lady with past medical history of mild intermittent asthma, ERNESTINA, hypertension and hyperlipidemia. Is here in the clinic to establish care for her. Patient states that she was diagnosed with asthma 10 years ago and was started on Asmanex inhaler along with as needed albuterol. When she was diagnosed with asthma, she had symptoms like constant throat clearing and coughing, which improved after starting on inhalers. Patient asthma was well controlled and therefore she quit using her Asmanex. in the last couple of weeks to months, patient has noted chest tightness, especially when she would work out. Patient notes that she was able to do without any difficulty and all of a sudden noticed chest tightness and coughing while exercising. Patient also started to notice some difficulty breathing during nighttime. Therefore, she started using her inhalers which seem to improve her symptoms. Has ran out of her Asmanex in the last coupleof days. Denies any childhood symptoms of asthma, no family, history of asthma. States that she may have allergies to the environment as she sometimes notices nasal congestion and constant throat clearing from post nasal drip. Patient has a brief remote history of smoking in her teenage years. Has no dogs or pets at home. But her children who live close by bring their dogs to her house, patient has not noticed worsening of her symptoms in the presence of the dogs. 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 Denies any dyspnea at rest, no wheezing. No difficulty with ADLs No hospitalizations or ER visit for breathing or asthma Steroids use: None MMRC Dyspnea Scale: 0. Not troubled by breathlessness except on strenuous exercise Short of breath when hurrying or walking up a slight hill Walks slower than contemporaries on the level because of breathlessness, or has to stop for breath when walking at own pace Stops for breath after about 100 m or after a few minutes on the level Too breathless to leave the house, or breathless when dressing or undressing Social and Personal History: - Smoking: Patient has a brief remote history of smoking in her teenage years. 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 Other Environmental Exposure History: Pets: No birds Asbestos: No significant exposure Silica: No significant exposure Briscoe: No significant exposure Mold: No significant exposure Hot tub: No significant exposure Fumes: No significant exposure Metal dust: No significant exposure Beryllium: No significant exposure Dust: No significant exposure Medications: No relevant exposure for interstitial lung diseases FAMILY HISTORY Problem Relation Age of Onset None Mother Prostate Cancer Father Diabetes Maternal Grandfather Social History Tobacco Use Smoking status: Former Packs/day: 1.00 Years: 5.00 Additional pack years: 0.00 Total pack years: 5.00 Types: Cigarettes Passive exposure: Past Smokeless tobacco: Never Tobacco comments: 18 years ago, quit 1984 Substance Use Topics Alcohol use: Yes Comment: daily- wine or beer/ average 12 drinks a week Drug use: No ALLERGIES ALLERGIES Allergen Reactions Aleve [Naproxen Sod* Hives passed out Sulfa (Sulfonamide * CURRENT OUTPATIENT MEDICATIONS albuterol HFA 90 mcg/actuation HFA Inhale as instructed. spironolactone (ALDACTONE) 50 mg tablet TAKE 1 TABLET DAILY amLODIPine (NORVASC) 10 mg tablet Take 1 tablet by mouth once daily. PARoxetine (PAXIL) 10 mg tablet Take 1 tablet by mouth once daily. MOMETASONE FUROATE (ASMANEX HFA INHALATION) Inhale 1 Inhalation as instructed once daily. gabapentin (NEURONTIN) 300 mg capsule Take 1 capsule by mouth daily at bedtime. adapalene (DIFFERIN) 0.1 % gel Apply to entire affected areas of acne daily up to twice daily (if needed) as directed and tolerated. REVIEW OF SYSTEMS The remainder of review of systems was negative. PHYSICAL EXAM BP 121/77 Pulse 71 Ht 5' 3.622 (1.62m) Wt 235 lb 14.3 oz (107.0kg) SpO2 99% LMP 01/04/2012 BMI 40.97 kg/(m^2). General appearance: Well appearing, alert, in no acute distress,. Obese Eyes: PERRLA Nose/Sinuses: Nares normal. Septum midline. Mucosa normal. No drainage or sinus tenderness. Oropharynx: Lips, mucosa, and tongue normal, teeth and gums normal, oropharynx normal Neck: no palpable masses Lungs: Lungs clear to auscultation. No wheezing, rhonchi, rales Heart: RRR without murmur, gallop, or rubs. No ectopy , normal peripheral pulses, no peripheral edema Abdomen: Abdomen soft, non-tender. Bowel sounds normal. No masses, organomegaly Extremities: Normal, Warm, No cyanosis, no clubbing, No edema, and Nontender Neuro: no focal weakness Psychiatry: Alert, Oriented X 3 DATA Diagnostic tests reviewed for today's visit, including labs imaging and other relevant testing werepersonally reviewed and analysed by me: Most recent labs and imaging results. PULMONARY TESTING PFT Date:12/06/2023 Impression: No obstruction on spirometry # Lung cancer screening - Doesn't qualify. # Immunizations: COVID/Influenza/Pneumococcal/TDAP if not received prior/Shingles Immunization History Administered Date(s) Administered COVID-19 original vaccine, age 12+ yr, monovalent (PFIZER-BIONTECH - PURPLE TOP) 06/12/2021 COVID-19 original vaccine, full dose, monovalent (MODERNA) 09/08/2020 10/06/2020 diphtheria tetanus (DT) vaccine, pediatric 06/17/1985 tetanus diphtheria pertussis (Tdap) vaccine, age 7+ yr (ADACEL, BOOSTRIX) 04/27/2009 Verbal and/or written health teaching given to patient with > 40 minutes spent face to face withmore than half of this for disease counseling. Denise Marlow MD, Staff, [facility] documented in this encounterGrant Hospital06-21-2024 Procedure note* Jin Corcoran, WATER SANDER - 12/06/2023 10:49 AM EDTAssociated Order(s): NITRIC OXIDE, EXHALED RESPIRATORY THERAPY ORAL EXHALED NITRIC OXIDE SERVICE DATE: 12/06/2023 SERVICE TIME: 10:49 AM Oral Exhaled Nitric Oxide measurement: 18.0 (ppb) Normal: Adult 5-20 ppb, pediatric (<12 years) 5-15 ppb High Normal / Increased: Adult 20-35 ppb, pediatric (<12 years) 15-25 ppb Moderately raised exhaled Nitric Oxide may indicate underlying inflammation, but note that: Cold and influenza can raise exhaled Nitric Oxide and some patients have higher baseline exhaled Nitric Oxide levels than others. High: Adult >35 ppb, pediatric (<12 years) >25 ppb Indicative of ongoing eosinophilic inflammation. Symptomatic patient likely to respond to steroids. Possible causes (if already on steroids): Poor compliance, recent allergen exposure, steroid dose inadequate, and steroid resistance. Note that not all patients with high exhaled nitric oxide levels display symptoms. Oral Exhaled Nitric Oxide measurement (Previous Encounters) Test Date Oral Exhaled Nitric Oxide (ppb) 12/06/2023 18.0 NAME: Jin Pimentel BRUNO Corcoran PATIENT NAME: Jackie Guaman DATE: December 06, 2023 TIME: 10:49 AM [facility] Procedure note* Jin Corcoran RRT - 12/06/2023 10:49 AM EDTAssociated Order(s): NITRIC OXIDE, EXHALED RESPIRATORY THERAPY ORAL EXHALED NITRIC OXIDE SERVICE DATE: 12/06/2023 SERVICE TIME: 10:49 AM Oral Exhaled Nitric Oxide measurement: 18.0 (ppb) Normal: Adult 5-20 ppb, pediatric (<12 years) 5-15 ppb High Normal / Increased: Adult 20-35 ppb, pediatric (<12 years) 15-25 ppb Moderately raised exhaled Nitric Oxide may indicate underlying inflammation, but note that: Cold and influenza can raise exhaled Nitric Oxide and some patients have higher baseline exhaled Nitric Oxide levels than others. High: Adult >35 ppb, pediatric (<12 years) >25 ppb Indicative of ongoing eosinophilic inflammation. Symptomatic patient likely to respond to steroids. Possible causes (if already on steroids): Poor compliance, recent allergen exposure, steroid dose inadequate, and steroid resistance. Note that not all patients with high exhaled nitric oxide levels display symptoms. Oral Exhaled Nitric Oxide measurement (Previous Encounters) Test Date Oral Exhaled Nitric Oxide (ppb) 12/06/2023 18.0 NAME: Jin Pimentel BRUNO Corcoran PATIENT NAME: Jackie Guaman DATE: December 06, 2023 TIME: 10:49 AM documented in this encounterGrant Hospital06-21-2024 History of Present illness Narrative* Jin Corcoran RRT - 12/06/2023 10:48 AM EDT PULM FUNCTION: Provider: Denise Marlow MD Assisting Tech: Jin Corcoran RRT Spirometry w/BD: 1 Exhaled Nitric Oxide: 1 documented in this encounterSt[facility] noteNo assessment information availableWDayton Osteopathic Hospital Work Phone: Evaluation note* Diagnosis Onset Date Resolution Status Hoffa's syndrome acute Internal derangement of left knee acute Left knee pain acute Chondromalacia patellae of left knee acute Internal derangement of left knee acute [facility] Work Phone: Evaluation note* Diagnosis Onset Date Resolution Status Chondromalacia patellae of left knee acute Chondromalacia, left knee ac [place] Internal derangement of left knee acute Sinusitis noneactive Internal derangement of left knee acute Left knee pain acute Chondromalacia patellae of left knee acute Left knee pain acute Plica syndrome, left knee ac [place] 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 Chondromalacia, left knee ac [place] [facility] Work Phone: Evaluation note* Diagnosis Onset Date Resolution Status Chondromalacia patellae of left knee acute Chondromalacia, left knee ac [place] Internal derangement of left knee acute Sinusitis noneactive Internal derangement of left knee acute Left knee pain acute Chondromalacia patellae of left knee acute Left knee pain acute Plica syndrome, left knee ac [place] 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* Diagnosis Asthma, unspecified asthma severity, unspecified whether complicated, unspecified whether persistent documented [facility]* Diagnosis Asthma, unspecified asthma severity, unspecified whether complicated, unspecified whether persistent documented [facility]* Diagnosis Moderate persistent asthma without complication- Primary Unspecified asthma History of environmental allergies Other allergy, other than to medicinal agents ERNESTINA on CPAP Obstructive sleep apnea (adult) (pediatric) Brief Remote Smoking History Personal history of tobacco use, presenting hazards to health [facility]* Diagnosis Moderate persistent asthma without complication- Primary Unspecified asthma History of environmental allergies Other allergy, other than to medicinal agents ERNESTINA on CPAP Obstructive sleep apnea (adult) (pediatric) Brief Remote Smoking History Personal history of tobacco use, presenting hazards to health documented [facility] encounter [facility]* Diagnosis Onset Date Resolution Status Admit Date Encounter for routine gynecological examination noneactive Sept2024 1:02pm [facility] Work Phone: Hospital Discharge instructionsAmbulatory Orders* Physical Therapy Referral Location: None Selected [facility] Work Phone: Reason for referral (narrative)* Outpatient Procedure (Routine) - Pending Review Specialty Diagnoses / Procedures Referred By Mayank soriano Referred To Contact [facility] Diagnoses Asthma, unspecified asthma severity, unspecified whether complicated, unspecified whether persistent Procedures SPIROMETRY - BASELINE AND POST DILATOR BRNCDILAT RSPSE SPMTRY PRE&POST-BRNCDILAT ADMN Denise Marlow MD [address] [place] [address] [facility] [place] [address] Referral ID Status Reason Start Date Expiration Date Visits Requested Visits Authorized [id number] Pending Review Auto-Generat ed Referral 11/06/2023 12/05/2024 1 1 * Outpatient Procedure (Routine) - Pending Review Specialty Diagnoses / Procedures Referred By Mayank soriano Referred To Contact [facility] Diagnoses Asthma, unspecified asthma severity, unspecified whether complicated, unspecified whether persistent Procedures NITRIC OXIDE, EXHALED NITRIC OXIDE GAS DETERMINATION Denise Marlow MD [address] [place] [address] [facility] [id number] [place] [address] Referral ID Status Reason Start Date Expiration Date Visits Requested Visits Authorized [id number] Pending Review Auto-Generat ed Referral 11/06/2023 12/05/2024 1 1 [facility] HospitalReason for referral (narrative)No reason for referral information availableHouston Medical Services Work Phone: Chief Complaint and Reason for Visit Chief Complaint SCREENING RT KNEE/ PT BRING RX Chief Complaint SCREENING RT KNEE/ PT BRING RX LEFT KNEE xray LEFT KNEE PAIN LEFT KNEE Reason for Visit Hoffa's syndrome Internal derangement of left knee Left knee pain Chondromalacia patellae of left knee Internal derangement of left knee Chief Complaint LEFT KNEE Sinus infection left knee LEFT KNEE left knee left knee left knee EORDER Reason for Visit Chondromalacia [place] of left knee Chondromalacia, left knee Internal derangement of left knee Sinusitis Internal derangement of left knee Left knee pain Chondromalacia patellae of left knee Left knee pain Plica syndrome, 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 Chondromalacia, left knee Chief Complaint LEFT KNEE Sinus infection left knee LEFT KNEE left knee left knee left knee EORDER LEFT KNEE Chronic sinusitis Reason for Visit Chondromalacia [place] of left knee Chondromalacia, left knee Internal derangement of left knee Sinusitis Internal derangement of left knee Left knee pain Chondromalacia patellae of left knee Left knee pain Plica syndrome, 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 Chondromalacia, left knee Left knee pain Chief Complaint Chronic sinusitis CHRONIC SINUSITIS SCREENING Chief Complaint CHRONIC SINUSITIS SCREENING need order Chief Complaint Admit Date Annual (OPEN SHANK COVERER) February 18, 2025 1:02pm Reason for Visit Admit Date Encounter for routine gynecological exam ination February 18, 2025 1:02pm Chief Complaint Admit Date Annual (OPEN SHANK COVERER) February 18, 2025 1:02pm screen for breast cancer March 03, 2025 2:53pm Family History No Family History Records Found Relationship Condition Age at Onset Recorded Date/T james father Malignant neoplasm Unknown brother Malignant neoplasm Unknown Advance Directives No Advanced Directives Records Found Advance Directive Response Recorded Date/ Time Living Will Yes June 27 9:53am Power of Icing Maker Yes June 27, 2018 9:53am Advance Directive Response Recorded Date/ Time Living Will Yes Hiral 11th, 20 19 8:53am Power of Icing Maker Yes June 27, 2018 8:53am Summary Purpose Additional Source Comments Goals (unrecognized section and content) Goals may be documented in a n alternate sectionGoals may be documented in an alternate sectionGoals may be documented in an alternate sectionGoals may be documented in an alternate sectionGoals may be documented in an alternate sectionGoals may be documented in an alternate sectionGoals may be documented in an alternate sectionGoals may be documented in an alternate section Care Teams (unrecognized sec tion and content) Team Status: Active Member Role Status Dates Dr. Alex Farris MD Family Provider Active Dr. Alex Farris MD Primary Care Provider Activ e Team Status: Inactive Member Role Status Dates Dr. Alex Farris MD Primary Care Provider, Refe rring Provider Active Juna Manuel [place], [place] Attending Provider Active Team Status: Inactive Member Role Status Dates Dr. Alex Farris MD Primary Care Provider, Refe rring Provider Active Kp [place], [place] Attending Provider Active Team Status: Inactive Member Role Status Dates Dr. Alex Farris MD Primary Care Provider, Refe rring Provider Active Gerald Boykin MD Attending Provider Active Team Status: Inactive Member Role Status Dates Dr. Alex Farris MD Primary Care Provider, Attending Provider, Referring Provider Active Team Status: Inactive Member Role Status Dates Dr. Alex Farris MD Primary Care Provider Activ e Dr. Audrey Vasques DO Attending Provider, Referrin g Provider Active Team Status: Active Member Role/Relationship Status Dates Dr. Hieu Farris MD Primary Care Provider Acti ve Team Status: Inactive Member Role/Relationship Status Dates Dr. Hieu Farris MD Primary Care Provider Acti ve Start: February 18, 2025 End: February 18, 2025 Dr. Hieu Farris MD Referring Provider Active Start: February 18, 2025 End: February 18, 2025 LEIA Smith Attending Provider Active Start: February 18, 2025 End: February 18, 2025 Team Status: Active Member Role/Relationship Status Dates Dr. Heiu Farris MD Primary care physician Act [place] Team Status: Inactive Member Role/Relationship Status Dates Dr. Hieu Farris MD Primary care physician Act [place] Start: February 18, 2025 End: February 18, 2025 Dr. Hieu Farris MD Referring Provider Active Start: February 18, 2025 End: February 18, 2025 LEIA Smith Attending physician Active Start: February 18, 2025 End: February 18, 2025 Team Status: Inactive Member Role/Relationship Status Dates Dr. Hieu Farris MD Primary care physician Act [place] Start: March 03, 2025 End: March 03, 2025 LEIA Smith Attending physician Active Start: March 03, 2025 End: March 03, 2025 LEIA Smith Referring Provider Active Start: March 03, 2025 End: March 03, 2025 Source Comments (unrecognize d section and content) In the event this informatio n is protected by the Federal Confidentiality of Alcohol and Drug Abuse Patient Records regulations: The Federal rules restrict any use of the information to criminally investigate or prosecute any alcohol or drug abuse patient.[facility] HospitalIn the event this information is protected by the Federal Confidentiality of Alcohol and Drug Abuse Patient Records regulations: The Federal rules restrict any use of the information to criminally investigate or prosecute any alcohol or drug abuse patient.[facility] HospitalIn the event this information is protected by the Federal Confidentiality of Alcohol and Drug Abuse Patient Records regulations: The Federal rules restrict any use of the information to criminally investigate or prosecute any alcohol or drug abuse patient.[facility] HospitalIn the event this information is protected by the Federal Confidentiality of Alcohol and Drug Abuse Patient Records regulations: The Federal rules restrict any use of the information to criminally investigate or prosecute any alcohol or drug abuse patient.[facility] HospitalIn the event this information is protected by the Federal Confidentiality of Alcohol and Drug Abuse Patient Records regulations: The Federal rules restrict any use of the information to criminally investigate or prosecute any alcohol or drug abuse patient.[facility] HospitalIn the event this information is protected by the Federal Confidentiality of Alcohol and Drug Abuse Patient Records regulations: The Federal rules restrict any use of the information to criminally investigate or prosecute any alcohol or drug abuse patient.[facility] HospitalIn the event this information is protected by the Federal Confidentiality of Alcohol and Drug Abuse Patient Records regulations: The Federal rules restrict any use of the information to criminally investigate or prosecute any alcohol or drug abuse patient.[facility] HospitalIn the event this information is protected by the Federal Confidentiality of Alcohol and Drug Abuse Patient Records regulations: The Federal rules restrict any use of the information to criminally investigate or prosecute any alcohol or drug abuse patient.[facility] Reason for Visit (unrecogniz ed section and content) Reason Comments Spirometry Specialty Diagnoses / Procedures Referred By Mayank t Referred To Contact [facility] Diagnoses Asthma, unspecified asthma severity, unspecified whether complicated, unspecified whether persistent Procedures SPIROMETRY - BASELINE AND POST DILATOR BRNCDILAT RSPSE SPMTRY PRE&POST-BRNCDILAT ADMN Denise Marlow MD [address] [place] [address] [facility] [address] [place] [address] Referral ID Status Reason Start Date Expiration Date V isits Requested Visits Authorized [id number] Closed Auto-Generate d Referral 11/06/2023 12/05/2024 1 1 Specialty Diagnoses / Procedures Referred By Contnathalie t Referred To Contact [facility] Diagnoses Asthma, unspecified asthma severity, unspecified whether complicated, unspecified whether persistent Procedures NITRIC OXIDE, EXHALED NITRIC OXIDE GAS DETERMINATION Denise Marlow MD [address] [place] [address] [facility] [address] [place] [id number] Referral ID Status Reason Start Date Expiration Date V isits Requested Visits Authorized [id number] Closed Auto-Generate d Referral 11/06/2023 12/05/2024 1 1 Reason Comments Asthma New patient Reason Comments Medication Problem Reason Comments Refill Request Reason Comments Asthma 6 month f/u Reason Onset Date Comments Refill Request 02/03/2025 INFORMATION SOURCE (unrecogn ized section and content) DATE CREATED AUTHOR 12/11/2023 [facility] DATE CREATED AUTHOR AUTHOR'S ORGANKIMBERLY ATION 02/05/2025 [facility] DATE CREATED AUTHOR AUTHOR'S ORGANIZ ATION 03/20/2025 [facility] FOR RECORDS PERTAINING TO PATIENTS WHO ARE OR HAVE BEEN ENROLLED IN A CHEMICAL DEPENDENCY/SUBSTANCEABUSE PROGRAM, SOME INFORMATION MAY BE OMITTED. This clinical summary was aggregated from multiple sources. Caution should be exercised in using it in the provision of clinical care. This summary normalizes information from multiple sources, and as a consequence, information in this document may materially change the coding, format and clinical context of patient data. In addition, data may be omitted in some cases. CLINICAL DECISIONS SHOULD BE BASED ON THE PRIMARY CLINICAL RECORDS. [facility] [employer] [facility]. provides no warranty or guarantee of the accuracy or completeness of information in this document.
[2025-05-26 11:09] LABS: Hematocrit 41.1 % (37-47); Hemoglobin 14.3 g/dL (12.0-15.0); Immature Granulocytes Count 0.030 X10^3/uL (0.0-0.0); Mean Corp Hgb Conc 34.8 g/dL (32-36); Mean Corpuscular Volume 98.3 fL (81-99); Mean Platelet Vol. 9.3 fl (6.2-12.0); NRBC Flagged by Analyzer 0 % (0-5); Platelet Count 310 K/mm3 (150-450); RBC Distribution Width CV 12.3 % (11.6-14.6); RBC Distribution Width SD 44.6 fl (35.1-43.9); Red Blood Count 4.18 M/mm3 (4.2-5.4); White Blood Count 5.6 K/mm3 (4.4-11.0)
[2025-05-26 12:14] LABS: Cholesterol 269 mg/dL (<=200); Low Density Lipoprotein Calc. 174 mg/dL; Triglycerides 129 mg/dL; Very Low Density Lipoprotein 26 mg/dL (5-40); cholesterol:hdl ratio screen 3.70
[2025-05-26 12:43] LABS: AST(SGOT) 23 U/L (<=31); Alanine Aminotransfer ALT/SGPT 26 U/L (<=34); Albumin, Serum 4.5 g/dL (3.4-4.8); Alkaline Phosphatase 89 U/L (35-104); Anion Gap 15 (5-15); BUN 15 mg/dL (4-19); BUN/Creat Ratio 18.1 RATIO (10-20); CRP 7.70 mg/L (0.0-3.0); Calcium,Total 10.2 mg/dL (7.6-11.0); Carbon Dioxide 21.4 mmol/L (21.0-32.0); Chloride 101 mmol/L (98-108); Ferritin 665 ng/mL (22-378); Globulin 2.6 g/dL (2.2-4.2); Glucose 104 mg/dL (70-99); Iron 207 ug/dL (50-170); Iron Binding Capacity,Total 287 ug/dL (250-450); Iron Binding Capacity,Unsat 80 ug/dL (228-428); Potassium 5.0 mmol/L (3.3-5.1); Vitamin B12 556 pg/mL (180-914); Vitamin D,25 Hydroxy 41.9 ng/mL (30-100)
[2025-05-27 13:08] LABS: ANTINUCLEAR ANTIBODIES DIRECT Negative (Negative)
== END | disposition home or self-care (01) ==
LOC: VSLAB 09:47
PROVIDERS: PCP Family Medicine; Referring Provider Nurse Practitioner Family; Visit Provider Nurse Practitioner Family
DX: Z13.1 Encounter for screening for diabetes mellitus (principal); M35.3 Polymyalgia rheumatica; E78.5 Hyperlipidemia, unspecified; R53.83 Other fatigue
CPT/HCPCS: 36415; 80053; 80061; 82306; 82607; 82728; 83036; 83540; 83550; 84439; 84443; 85025; 85652; 86038; 86140; 86431